=== PATIENT | male | born 1950 | race Caucasian/White ===

== ENCOUNTER 2019-06-15 20:35 | Emergency (ER) | payer MEDICARE ==
[2019-06-15 21:58] LABS: Basophils # (Auto) 0.1 K/mm3 (0.0-0.1); Basophils % (Auto) 0.4 % (0.0-1.8); Eosinophils # (Auto) 0.4 K/mm3 (0.0-0.4); Eosinophils % (Auto) 2.2 % (0.0-4.3); Hemoglobin 13.6 gm/dl (11.8-15.2); Lymphocytes # (Auto) 2.1 K/mm3 (1.2-5.4); Lymphocytes % (Auto) 11.4 % (13.4-35.0); Monocytes # (Auto) 1.6 K/mm3 (0.0-0.8); Monocytes % (Auto) 8.5 % (0.0-7.3)
[2019-06-15 22:17] LABS: Calcium 9.7 mg/dL (8.4-10.2)
[2019-06-15 22:27] LABS: Hematocrit 39.2 % (35.5-45.6); Mean Corpuscular HGB Conc 34 % (32-34); Mean Corpuscular Volume 74 fl (84-94); Platelet Count 404 K/mm3 (140-440); Red Blood Count 5.32 M/mm3 (3.65-5.03); Red Cell Distribution Width 13.8 % (13.2-15.2)
[2019-06-15] MEDS ORDERED: POTASSIUM CHLORIDE ER 20 MEQ TAB PO ONE (23:59)
--- NOTE | 2019-06-16 00:02 | Emergency Department Report ---
ED Male HPI - General Chief complaint: Abdominal Pain Stated complaint: CANT URINATE Time Seen by Provider: 06/15/19 21:15 Source: patient Mode of arrival: Ambulatory Limitations: Language Barrier (Translation line used, patient speaks [place]) - History of Present Illness Initial comments: 69-year-old male with a history of [id number] diabetes and no surgical history presents to the hospital with complaints of inability to urinate since 11am. He presents tachycardic and feeling a suprapubic pain. Patient states he has had 1 previous episode of urinary retention treated with a Nielson. Is not currently seen by urologist - Related Data Previous Rx's Medication Instructions Recorded Last Taken Type Tamsulosin [Flomax] 0.4 mg PO QDAY #14 cap 06/16/19 Unknown Rx cephALEXin [Keflex] 500 mg PO Q6HR #40 capsule 06/16/19 Unknown Rx Allergies Allergy/AdvReac Type Severity Reaction Status Date / Time No Known Allergies Allergy Unverified 06/16/19 00:49 ED Review of Systems ROS: Stated complaint: CANT URINATE Other details as noted in HPI Comment: All other systems reviewed and negative ED Past Medical Hx - Past Medical History Previous Medical History?: No - Surgical History Past Surgical History?: No - Social History Smoking Status: Unknown if ever smoked Substance Use Type: None - Medications Home Medications: Home Medications Medication Instructions Recorded Confirmed Last Taken Type Tamsulosin [Flomax] 0.4 mg PO QDAY #14 cap 06/16/19 Unknown Rx cephALEXin [Keflex] 500 mg PO Q6HR #40 capsule 06/16/19 Unknown Rx ED Physical Exam - General Limitations: Language Barrier - Other Other exam information: General: No acute distress Head: Atraumatic Eyes: normal appearance ENT: Moist mucous membranes Neck: Normal appearance, no midline tenderness Chest: Clear to auscultation bilaterally CV: Tachycardic regular rhythm Abdomen: Soft, normal bowel sounds, suprapubic tenderness, no rebound or guarding Back: Normal inspection Extremity: Normal inspection, full range of motion Neuro: Alert O x 3, no facial asymmetry, speech clear, no gross motor sensory deficit Psych: Appropriate behavior Skin: No rash ED Course Vital Signs 06/15/19 06/16/19 06/16/19 20:40 00:07 00:51 Temperature 99.1 F 97.7 F Pulse Rate 130 H 84 Respiratory 20 17 18 Rate Blood Pressure 140/74 Blood Pressure 131/56 [Left] O2 Sat by Pulse 98 99 98 Oximetry 06/16/19 01:18 Temperature 98.2 F Pulse Rate 90 Respiratory 18 Rate Blood Pressure Blood Pressure 124/63 [Left] O2 Sat by Pulse 96 Oximetry - Reevaluation(s) Reevaluation #1: 06/16/19 00:01 Nielson placed by RN. 500 mL urine output with improvement in pain ED Medical Decision Making - Lab Data Result diagrams: 06/15/19 21:44 06/15/19 21:44 Lab Results 06/15/19 06/15/19 06/16/19 Range/Units 21:44 21:44 00:10 WBC 18.2 H (4.5-11.0) K/mm3 RBC 5.32 H (3.65-5.03) M/mm3 Hgb 13.6 (11.8-15.2) gm/dl Hct 39.2 (35.5-45.6) % MCV 74 L (84-94) fl MCH 25 L (28-32) pg MCHC 34 (32-34) % RDW 13.8 (13.2-15.2) % Plt Count 404 (140-440) K/mm3 Lymph % (Auto) 11.4 L (13.4-35.0) % [place] % (Auto) 8.5 H (0.0-7.3) % Eos % (Auto) 2.2 (0.0-4.3) % Baso % (Auto) 0.4 (0.0-1.8) % Lymph # 2.1 (1.2-5.4) K/mm3 [place] # 1.6 H (0.0-0.8) K/mm3 Eos # 0.4 (0.0-0.4) K/mm3 Baso # 0.1 (0.0-0.1) K/mm3 Seg Neutrophils % 77.5 H (40.0-70.0) % Seg Neutrophils # 14.1 H (1.8-7.7) K/mm3 Sodium 134 L (137-145) mmol/L Potassium 3.3 L (3.6-5.0) mmol/L Chloride 94.5 L (98-107) mmol/L Carbon Dioxide 20 L (22-30) mmol/L Anion Gap 23 mmol/L BUN 16 (9-20) mg/dL Creatinine 1.3 (0.8-1.5) mg/dL Estimated GFR 55 ml/min BUN/Creatinine Ratio 12 % Glucose 133 H (75-100) mg/dL Calcium 9.7 (8.4-10.2) mg/dL Urine Color Yellow (Yellow) Urine Turbidity Slightly-cloudy (Clear) Urine pH 7.0 (5.0-7.0) Ur Specific [place] 1.015 (1.003-1.030) Urine Protein >500 (Negative) mg/dL Urine Glucose (UA) 150 (Negative) mg/dL Urine Ketones Neg (Negative) mg/dL Urine Blood Mod (Negative) Urine Nitrite Neg (Negative) Urine Bilirubin Neg (Negative) Urine Urobilinogen < 2.0 (<2.0) mg/dL Ur Leukocyte Esterase Tr (Negative) Urine WBC (Auto) 33.0 H (0.0-6.0) /HPF Urine RBC (Auto) > 182.0 (0.0-6.0) /HPF Urine Sperm Few (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 500 mL of urine output. Patient has a UTI. Received IV Rocephin x1. Will be discharged with antibiotics, leg bag, and urology follow-up. Translation line used to discuss patient's ED findings and outpatient follow-up plan - Differential Diagnosis Urine retention, UTI Critical Care Time: No Critical care attestation.: If time is entered above; I have spent that time in minutes in the direct care of this critically ill patient, excluding procedure time. ED Disposition Clinical Impression: Urinary retention, Diabetes, UTI (urinary tract infection) Disposition: - TO HOME OR SELFCARE Is pt being admited?: No Does the pt Need Aspirin: No Condition: Stable Instructions: Urinary Retention in Men (ED), Urinary Tract Infection in Men (ED), Diabetes Mellitus Type 2 in Adults (ED), Urinary Leg Bag (GEN) Additional Instructions: Take the medication as prescribed. Follow-up with your doctor or doctor/clinic provided. It is important that you follow-up with your urologist to have your catheter removed and to investigate why you are obstructed. Return if symptoms worsen as indicated by your discharge instructions. Prescriptions: Tamsulosin [Flomax] 0.4 mg PO QDAY #14 cap cephALEXin [Keflex] 500 mg PO Q6HR #40 capsule Referrals: PRIMARY CARE, [Primary Care Provider] - 3-5 Days AZAEL BATES MD [Staff Physician] - 3-5 Days Time of Disposition: 01:10
[2019-06-16 00:23] LABS: Bilirubin,Urine NEG (Negative); Blood,Urine MOD (Negative); Color,Urine Yellow (Yellow); Sperm,Urine FEW /HPF (NP); Urobilinogen,Urine < 2.0 mg/dL (<2.0)
[2019-06-16 00:25] LABS: Protein,Urine >500 mg/dL (Negative); RBC,Urine > 182.0 /HPF (0.0-6.0)
[2019-06-16] MEDS ORDERED: cefTRIAXone/NS 1 GM/50 ML 1 GM/50 ML BAG IV ONE (00:49)
[2019-06-16 01:19] VITALS: BP 124/63
== END 2019-06-16 03:01 | disposition home or self-care (01) ==
LOC: ED 20:35
DX: R33.9 Retention of urine, unspecified (principal); E11.9 Type 2 diabetes mellitus without complications; N39.0 Urinary tract infection, site not specified; Z79.899 Other long term (current) drug therapy
CPT/HCPCS: 36415; 51702; 80048; 81001; 85025; 87086; 96365; 99283; J0696; 82962

== ENCOUNTER 2019-06-16 21:43 | Emergency (ER) | payer MEDICARE ==
--- NOTE | 2019-06-16 22:47 | Emergency Department Report ---
ED Male HPI - General Chief complaint: Urogenital-Male Stated complaint: URINARY RETENTION Time Seen by Provider: 06/16/19 22:32 Source: patient Mode of arrival: Ambulatory Limitations: Language Barrier - History of Present Illness Initial comments: Translation line used 69-year-old [place] speaking male with a past medical history [id number] diabetes presents to the hospital with complaints of urinary retention since removing his Solorio catheter placed during his ER visit last night. Patient was seen by me last night for urinary retention plus UTI. Patient was discharged with Solorio, Solorio leg bag, antibiotics, and Flomax. Patient took out the Solorio catheter himself because it was hurting. He has not been able to urinate since removing the Solorio catheter. Feed Mixer used and patient did not fill his medications. He apparently does not know where he is able to take the medications overall pharmacy is. He also apparently did not understand that he is supposed to follow-up with urology. Pt's Daughter's Number is [phone] - Related Data Previous Rx's Medication Instructions Recorded Last Taken Type Tamsulosin [Flomax] 0.4 mg PO QDAY #14 cap 06/16/19 Unknown Rx cephALEXin [Keflex] 500 mg PO Q6HR #40 capsule 06/16/19 Unknown Rx Allergies Allergy/AdvReac Type Severity Reaction Status Date / Time No Known Allergies Allergy Unverified 06/16/19 21:47 ED Review of Systems ROS: Stated complaint: URINARY RETENTION Other details as noted in HPI Comment: All other systems reviewed and negative ED Past Medical Hx - Past Medical History Previous Medical History?: No - Surgical History Past Surgical History?: No - Social History Smoking Status: Never Smoker Substance Use Type: None - Medications Home Medications: Home Medications Medication Instructions Recorded Confirmed Last Taken Type Tamsulosin [Flomax] 0.4 mg PO QDAY #14 cap 06/16/19 Unknown Rx cephALEXin [Keflex] 500 mg PO Q6HR #40 capsule 06/16/19 Unknown Rx ED Physical Exam - General Limitations: No Limitations - Other Other exam information: General: Mild distress secondary to urine retention Head: Atraumatic Eyes: normal appearance ENT: Moist mucous membranes Neck: Normal appearance, no midline tenderness Chest: Clear to auscultation CV: Tachycardic regular Abdomen: Soft, normal bowel sounds, suprapubic tenderness Back: Normal inspection Extremity: Normal inspection, full range of motion Neuro: Alert O x 3, no facial asymmetry, speech clear, no gross motor sensory deficit Psych: Appropriate behavior Skin: No rash ED Course Vital Signs 06/16/19 06/17/19 21:46 00:28 Temperature 98.3 F 98.0 F Pulse Rate 120 H 90 Respiratory 20 18 Rate Blood Pressure 181/86 Blood Pressure 151/68 [Right] O2 Sat by Pulse 96 98 Oximetry ED Medical Decision Making - Medical Decision Making Patient presents with recurrent urinary retention after he took out with a Solorio catheter himself. Prior to patient's discharge last night I used the language line and gave patient strict instructions to not remove Solorio and to follow-up with urology. Pt now have hematuria likely due to urethra trauma from removing the solorio with balloon intact. No clots or cath obstruction. 1 dose of IV rocephin provided. Pt is afebrile and has mild hyperglycemia. Vitals improved after cath placement. I used a sailing instructor for an extended period of time to reexplain over and over again that patient does not take out the catheter himself (he would still suggest he was to remove the solorio however I think he finally understands), needs to follow-up with a urologist, needs to fill the medications at a pharmacy and [facility] use [facility] across the [address], and he needs to take the medication starting in the morning. Unfortunately, patient does not have a an [place]-speaking friend or family member here in [place]. He has a son and daughter that live out of state. He was able to provide his daughter's number. I spoke to pt's daughter at [phone] at 11:30pm. She lives in [facility] and will come to [place] tomorrow to assist her father with follow up, review discharge instructions, and getting meds. I explained the importance of keeping catheter in and only coming to the ED if is obstructed and not draining or if worsening infection/fever. Also stressed importance of compliance with antibiotics due to risk of sepsis and follow-up with the urologist. She voices understanding and will assist her father with appropriate outpt care and follow up. I will rewrite for abx and flomax so pt may take to pharmacy tonight - Differential Diagnosis Urine retention, BPH, UTI Critical Care Time: No Critical care attestation.: If time is entered above; I have spent that time in minutes in the direct care of this critically ill patient, excluding procedure time. ED Disposition Clinical Impression: Diabetes, Urinary retention, UTI (urinary tract infection) Disposition: TO HOME OR SELFCARE Is pt being admited?: No Condition: Stable Instructions: Cephalexin (By mouth), Tamsulosin (By mouth), Urinary Tract Infection in Men (ED), Solorio Catheter Placement and Care (ED), Diabetes Mellitus Type 2 in Adults (ED), Urinary Leg Bag (GEN) Additional Instructions: Take the medication as prescribed. Follow-up with your doctor or doctor/clinic provided. Return if symptoms worsen as indicated by your discharge instructions. Is is very important you follow-up with a urologist. Dr. Coelho is a urologist provided on your discharge s summary. Return to the ER if your Solorio catheter is no longer draining and you have increased pain in your lower stomach, start to have fevers, weakness, nausea, or vomiting. Please refer to your discharge instructions provided. Prescriptions: Tamsulosin [Flomax] 0.4 mg PO QDAY #14 cap cephALEXin [Keflex] 500 mg PO Q6HR #40 capsule Referrals: AZAEL COELHO MD [Staff Physician] - 3-5 Days (Urology) Time of Disposition: 00:45
[2019-06-16] MEDS ORDERED: cefTRIAXone/NS 1 GM/50 ML 1 GM/50 ML BAG IV ONE (23:14)
[2019-06-17 00:29] VITALS: BP 151/68
== END 2019-06-17 01:13 | disposition home or self-care (01) ==
LOC: ED 21:43
DX: N39.0 Urinary tract infection, site not specified (principal); E11.9 Type 2 diabetes mellitus without complications; R33.8 Other retention of urine
CPT/HCPCS: 51702; 82962; 96365; 99282; J0696

== ENCOUNTER 2019-06-21 06:58 | Emergency (ER) | payer MEDICARE ==
[2019-06-21 07:54] VITALS: BP 126/74
--- NOTE | 2019-06-21 09:28 | Emergency Department Report ---
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 Patient states he removed his catheter 2 days ago. Per the patient's daughter he has an appointment with urology and the reason he took his Nielson out the last time is because he thought that was the correct way to drain the urine from the back. Patient has no other complaints. -: Sudden Location: genitals Radiation: non-radiation Severity scale (0 -10): 3 Quality: aching Consistency: constant Improves with: none Worsens with: none Associated Symptoms: denies other symptoms Treatments Prior to Arrival: none - Related Data Previous Rx's Medication Instructions Recorded Last Taken Type Tamsulosin [Flomax] 0.4 mg PO QDAY #14 cap 06/16/19 Unknown Rx cephALEXin [Keflex] 500 mg PO Q6HR #40 capsule 06/16/19 Unknown Rx Allergies Allergy/AdvReac Type Severity Reaction Status Date / Time No Known Allergies Allergy Unverified 06/16/19 21:47 ED Review of Systems ROS: Stated complaint: URINARY RETENTION Other details as noted in HPI Comment: All other systems reviewed and negative Constitutional: denies: chills, fever Eyes: denies: eye pain, eye discharge, vision change ENT: denies: ear pain, throat pain Respiratory: denies: cough, shortness of breath, wheezing Cardiovascular: denies: chest pain, palpitations Endocrine: no symptoms reported Gastrointestinal: denies: abdominal pain, nausea, diarrhea Genitourinary: denies: urgency, dysuria Musculoskeletal: denies: back pain, joint swelling, arthralgia Skin: denies: rash, lesions Neurological: denies: headache, weakness, paresthesias Psychiatric: denies: anxiety, depression Hematological/Lymphatic: denies: easy bleeding, easy bruising ED Past Medical Hx - Past Medical History Additional medical history: urinary retention - Surgical History Past Surgical History?: No - Social History Smoking Status: Never Smoker Substance Use Type: None - Medications Home Medications: Home Medications Medication Instructions Recorded Confirmed Last Taken Type Tamsulosin [Flomax] 0.4 mg PO QDAY #14 cap 06/16/19 Unknown Rx cephALEXin [Keflex] 500 mg PO Q6HR #40 capsule 06/16/19 Unknown Rx ED Physical Exam - General Limitations: No Limitations General appearance: alert, in no apparent distress - Head Head exam: Present: atraumatic, normocephalic - Eye Eye exam: Present: normal appearance, PERRL, EOMI - ENT ENT exam: Present: mucous membranes moist - Neck Neck exam: Present: normal inspection - Respiratory Respiratory exam: Present: normal lung sounds bilaterally. Absent: respiratory distress - Cardiovascular Cardiovascular Exam: Present: regular rate, normal rhythm. Absent: systolic murmur, diastolic murmur, rubs, gallop - GI/Abdominal GI/Abdominal exam: Present: soft, normal bowel sounds, other (Distended bladder on exam). Absent: distended, tenderness - Rectal Rectal exam: Present: deferred - Extremities Exam Extremities exam: Present: normal inspection - Back Exam Back exam: Present: normal inspection - Neurological Exam Neurological exam: Present: alert, oriented X3 - Psychiatric Psychiatric exam: Present: normal affect, normal mood - Skin Skin exam: Present: warm, dry, intact, normal color. Absent: rash ED Course Vital Signs 06/21/19 07:45 Temperature 97.5 F L Pulse Rate 122 H Respiratory 20 Rate Blood Pressure 126/74 O2 Sat by Pulse 96 Oximetry ED Medical Decision Making - Medical Decision Making Nielson catheter replaced Critical care attestation.: If time is entered above; I have spent that time in minutes in the direct care of this critically ill patient, excluding procedure time. ED Disposition Clinical Impression: Urinary retention Disposition: DC-01 TO HOME OR SELFCARE Is pt being admited?: No Does the pt Need Aspirin: No Condition: Stable Instructions: Urinary Retention in Men (ED), Urinary Leg Bag (GEN), Nielson Catheter Placement and Care (ED) Additional Instructions: Please follow-up with your urology appointment Please continue to take your antibiotic and Flomax Referrals: JAMAR MENDOZA MD [Primary Care Provider] - 3-5 Days AZAEL BATES MD [Staff Physician] - 3-5 Days Time of Disposition: 09:27
== END 2019-06-21 09:44 | disposition home or self-care (01) ==
LOC: ED 06:58
DX: R33.9 Retention of urine, unspecified (principal)
CPT/HCPCS: 51702; 99281

== ENCOUNTER 2019-12-15 15:48 | Inpatient (IN) | payer MEDICARE ==
[2019-12-15 18:20] LABS: Basophils % (Auto) 0.4 % (0.0-1.8); Eosinophils % (Auto) 0.3 % (0.0-4.3); Hematocrit 34.6 % (35.5-45.6); Hemoglobin 11.2 gm/dl (11.8-15.2); Lymphocytes # (Auto) 1.4 K/mm3 (1.2-5.4); Mean Corpuscular HGB Conc 32 % (32-34); Mean Corpuscular Volume 76 fl (84-94); Monocytes # (Auto) 1.3 K/mm3 (0.0-0.8); Monocytes % (Auto) 10.5 % (0.0-7.3); Platelet Count 448 K/mm3 (140-440); Red Blood Count 4.54 M/mm3 (3.65-5.03); Red Cell Distribution Width 17.6 % (13.2-15.2)
[2019-12-15 18:36] LABS: Albumin 4.1 g/dL (3.9-5); Calcium 9.6 mg/dL (8.4-10.2)
--- NOTE | 2019-12-15 20:56 | XRay Report ---
CHEST 2 VIEWS INDICATION / CLINICAL INFORMATION: altered mental status. COMPARISON: None available. FINDINGS: SUPPORT DEVICES: None. HEART / MEDIASTINUM: No significant abnormality. LUNGS / PLEURA: No significant pulmonary or pleural abnormality. No pneumothorax. ADDITIONAL FINDINGS: No significant additional findings. IMPRESSION: 1. No acute findings. Signer Name: Chidi Muse MD Signed: 12/15/2019 8:52 PM Workstation Name: [id number]
[2019-12-15] MEDS ORDERED: SODIUM CHLORIDE 0.9% 1000 ML IV SOLN IV ONE (21:04)
[2019-12-15] MEDS: CEFEPIME/NS 2 GM/100 ML 2 GM/100 ML BAG IV SCH (21:29)
[2019-12-15 23:15] LABS: Bacteria,Urine 4+ /HPF (Negative); Bilirubin,Urine NEG (Negative); Blood,Urine MOD (Negative); Color,Urine Yellow (Yellow); Urobilinogen,Urine < 2.0 mg/dL (<2.0)
[2019-12-15 23:21] LABS: WBC,Urine > 182.0 /HPF (0.0-6.0)
[2019-12-16] MEDS ORDERED: MAGNESIUM HYDROXIDE (MOM) ORAL LIQD UDC PO PRN (00:22)
[2019-12-16] MEDS ORDERED: ONDANSETRON 4 MG/2 ML INJ IV PRN (00:22)
[2019-12-16] MEDS ORDERED: ACETAMINOPHEN 325 MG TAB PO PRN (00:22)
[2019-12-16] MEDS ORDERED: DEXTROSE 50% IN WATER (25GM) 50 ML SYRINGE IV PRN (00:22)
[2019-12-16] MEDS: CEFEPIME/NS 2 GM/100 ML 2 GM/100 ML BAG IV SCH ×2 (00:40→10:33)
[2019-12-16] MEDS ORDERED: LORazepam 2 MG/ML VIAL IV ONE ×3 (01:00→23:46)
[2019-12-16] MEDS ORDERED: HALOPERIDOL LACTATE 5 MG/1 ML INJ IM ONE ×2 (01:00→02:34)
--- NOTE | 2019-12-16 01:39 | Emergency Department Report ---
ED Male HPI - General Chief complaint: Urogenital-Female Stated complaint: DEMENTIA/PULLED OUT CATHERATER Time Seen by Provider: 12/15/19 21:03 Source: patient, family Mode of arrival: Ambulatory Limitations: Altered Mental Status, Physical Limitation - History of Present Illness Initial comments: This is a 69-year-old male with history of dementia, BPH, diabetes mellitus who presents to the ED with confusion and dislodged indwelling Nielson catheter. Family member stated that patient became confused and pulled out his Nielson catheter. Due to dementia and language barrier, history is limited. MD Complaint: other (Dislodged Nielson catheter) -: This evening Location: penis Consistency: constant Improves with: none Worsens with: none denies other symptoms - Related Data Previous Rx's Medication Instructions Recorded Last Taken Type Tamsulosin [Flomax] 0.4 mg PO QDAY #14 cap 06/16/19 Unknown Rx cephALEXin [Keflex] 500 mg PO Q6HR #40 capsule 06/16/19 Unknown Rx levoFLOXacin [Levaquin TAB] 500 mg PO QDAY #5 tablet 10/25/19 Unknown Rx Allergies Allergy/AdvReac Type Severity Reaction Status Date / Time No Known Allergies Allergy Verified 10/26/19 14:23 ED Review of Systems ROS: Stated complaint: DEMENTIA/PULLED OUT CATHERATER Other details as noted in HPI Comment: Unobtainable due to pts medical conditions (Dementia, language bar rier) ED Past Medical Hx - Past Medical History Previous Medical History?: Yes Hx Diabetes: Yes Additional medical history: urinary retention - Surgical History Past Surgical History?: No - Social History Smoking Status: Never Smoker Substance Use Type: Prescribed - Medications Home Medications: Home Medications Medication Instructions Recorded Confirmed Last Taken Type Tamsulosin [Flomax] 0.4 mg PO QDAY #14 cap 06/16/19 10/24/19 Unknown Rx cephALEXin [Keflex] 500 mg PO Q6HR #40 capsule 06/16/19 10/24/19 Unknown Rx levoFLOXacin [Levaquin TAB] 500 mg PO QDAY #5 tablet 10/25/19 Unknown Rx ED Physical Exam - General Limitations: Altered Mental Status, Physical Limitation General appearance: alert, in no apparent distress, other (Repeatedly attempts to urinate into urinal) - Head Head exam: Present: atraumatic, normocephalic - Eye Eye exam: Present: normal appearance - ENT ENT exam: Present: mucous membranes moist - Neck Neck exam: Present: normal inspection, full ROM - Respiratory Respiratory exam: Present: normal lung sounds bilaterally. Absent: respiratory distress, wheezes, rales, rhonchi - Cardiovascular Cardiovascular Exam: Present: normal rhythm, tachycardia, normal heart sounds. Absent: systolic murmur, diastolic murmur, rubs, gallop - GI/Abdominal GI/Abdominal exam: Present: soft, normal bowel sounds. Absent: distended, tenderness, guarding, rebound - Rectal Rectal exam: Present: deferred - Extremities Exam Extremities exam: Present: normal inspection - Back Exam Back exam: Present: normal inspection - Neurological Exam Neurological exam: Present: alert - Psychiatric Psychiatric exam: Present: normal affect, normal mood - Skin Skin exam: Present: warm, dry, intact, normal color. Absent: rash ED Course Vital Signs 12/15/19 16:02 Temperature 97.6 F Pulse Rate 122 H Respiratory 20 Rate Blood Pressure 119/48 O2 Sat by Pulse 100 Oximetry - Catheter Insertion (Urinary) Indications: replaced: fell out/removed/no longer functioning, to alleviate urinary retention Prophylactic Antibiotics Given: No Bladder Scan/US before Catherization: Yes Estimated Amount of Urine (mls): 1,000 Preparation: Providone-Iodine Type of Catheter Inserted: Nielson Catheter Balloon Size (mls): 10 Results: successfully catherized-immediate flow, retried with smaller/different catheter Patient Tolerated Procedure: well Complications: none Additional Comments: Under sterile conditions I initially attempted to insert a 16 Albanian coud catheter without success. I then attempted to insert 24 Albanian coud catheter. On third attempt, I was able to pass a 16 Albanian coud catheter with immediate expression of clear urine. ED Medical Decision Making - Lab Data Result diagrams: 12/15/19 17:32 12/15/19 17:32 Laboratory Results - last 24 hr 12/15/19 12/15/19 12/15/19 17:32 17:32 20:04 WBC 12.0 H RBC 4.54 Hgb 11.2 L Hct 34.6 L MCV 76 L MCH 25 L MCHC 32 RDW 17.6 H Plt Count 448 H Lymph % (Auto) 12.0 L [place] % (Auto) 10.5 H Eos % (Auto) 0.3 Baso % (Auto) 0.4 Lymph # (Auto) 1.4 [place] # (Auto) 1.3 H Eos # (Auto) 0.0 Baso # (Auto) 0.0 Seg Neutrophils % 76.8 H Seg Neutrophils # 9.2 H Sodium 133 L Potassium 4.9 Chloride 96.0 L Carbon Dioxide 20 L Anion Gap 22 BUN 38 H Creatinine 1.9 H Estimated GFR 35 BUN/Creatinine Ratio 20 Glucose 189 H Lactic Acid Calcium 9.6 Total Bilirubin 0.40 AST 21 ALT 13 Alkaline Phosphatase 62 Troponin T 0.012 Total Protein 8.2 Albumin 4.1 Albumin/Globulin Ratio 1.0 Urine Color Urine Turbidity Urine pH Ur Specific Wesley Urine Protein Urine Glucose (UA) Urine Ketones Urine Blood Urine Nitrite Urine Bilirubin Urine Urobilinogen Ur Leukocyte Esterase Urine WBC (Auto) Urine RBC (Auto) Urine Bacteria (Auto) Urine WBC Clumps 12/15/19 12/15/19 21:23 22:37 WBC RBC Hgb Hct MCV MCH MCHC RDW Plt Count Lymph % (Auto) [place] % (Auto) Eos % (Auto) Baso % (Auto) Lymph # (Auto) [place] # (Auto) Eos # (Auto) Baso # (Auto) Seg Neutrophils % Seg Neutrophils # Sodium Potassium Chloride Carbon Dioxide Anion Gap BUN Creatinine Estimated GFR BUN/Creatinine Ratio Glucose Lactic Acid 2.50 H* Calcium Total Bilirubin AST ALT Alkaline Phosphatase Troponin T Total Protein Albumin Albumin/Globulin Ratio Urine Color Yellow Urine Turbidity Turbid Urine pH 5.0 Ur Specific Wesley 1.011 Urine Protein 100 mg/dl Urine Glucose (UA) Neg Urine Ketones Neg Urine Blood Mod Urine Nitrite Neg Urine Bilirubin Neg Urine Urobilinogen < 2.0 Ur Leukocyte Esterase Lg Urine WBC (Auto) > 182.0 H Urine RBC (Auto) 48.0 Urine Bacteria (Auto) 4+ Urine WBC Clumps 3+ - EKG Data -: EKG Interpreted by Mi EKG shows normal: sinus rhythm, intervals, QRS complexes, ST-T waves Rate: tachycardia - EKG Data Interpretation: nonspecific ST-T wave ja - Radiology Data Radiology results: report reviewed Chest radiograph: No acute findings - Medical Decision Making This is a 69-year-old male with history of diabetes mellitus, BPH, urinary retention, dementia who presents with an dislodged indwelling Nielson catheter. With tachycardia and hypotension at triage I was concerned for sepsis. Patient was able to ride urine sample. It appeared that he is having difficulty emptying his bladder. Urinalysis revealed UTI as source of sepsis. Sepsis protocol initiated in the emergency department. 30 mils per kilogram of normal saline provided as well as broad-spectrum antibiotics for complicated UTI. Patient required chemical and physical restraint in order for me to insert Nielson catheter. Nursing team members were unable to insert Nielson catheter. Bladder scan revealed greater than 1000 mL of urine in volume prior to Nielson catheter insertion. With resuscitation, blood pressure improved. Vital Signs - 24 hr 12/15/19 16:02 Temperature 97.6 F Pulse Rate 122 H Respiratory 20 Rate Blood Pressure 119/48 O2 Sat by Pulse 100 Oximetry Critical Care Time: Yes Critical care time in (mins) excluding proc time.: 40 Critical care attestation.: If time is entered above; I have spent that time in minutes in the direct care of this critically ill patient, excluding procedure time. 40 minutes of critical care time excluding procedures were used in the care of the patient. I came immediately to the bedside upon patient's arrival. I discussed treatment plan with the nursing team members. I reviewed electronic record. Patient required multiple interventions and reassessments. I was concerned for septic shock with tachycardia and decreased diastolic blood pressure and widened pulse pressure. ED Disposition Clinical Impression: Urinary retention due to benign prostatic hyperplasia, Urinary tract infection, Sepsis, Acute on chronic kidney failure Disposition: OP ADMIT IP TO THIS HOSP Is pt being admited?: Yes Does the pt Need Aspirin: No Condition: Fair
[2019-12-16] MEDS ORDERED: METOPROLOL TARTRATE 5 MG/5 ML INJ IV ONE (03:33)
[2019-12-16] MEDS ORDERED: ADENOSINE 6 MG/2 ML INJ IV ONE ×2 (03:42→03:47)
[2019-12-16] MEDS ORDERED: ADENOSINE 6 MG/2 ML INJ ONE ×2 (03:42→03:47)
[2019-12-16] MEDS ORDERED: ACETAMINOPHEN 650 MG RECT SUPP PR ONE (03:55)
--- NOTE | 2019-12-16 03:56 | Emergency Department Report ---
Blank Doc - Documentation Documentation: Patient is drowsy after receiving Haldol and Ativan and is in wrist restraints due to alteration mental status/dementia and trying to pull out solorio Nurse called me to bedside given that patient is admitted and boarding in the ED with a tachycardic rate of 170s on the monitor. I also informed them to contact Dr Gutiérrez since pt is admitted to the hospitalist service. Rhythm is regular. Systolic BP in the 130's to 120's. Tacypneic at 40 with room air stat of 98%. I requested a stat EKG, and stat rectal temp. EKG showed svt rate 173 without ischemic findings. Patient is temperature 103. Solorio is actively draining yellow mildly purulent urine. I informed nurse to provide [place] tylenol. Dr Gutiérrez told RN to provided adenosine 6mg I remained at the bedside to assist in the care of the patient Y connector placed and pt received adenosine 6 mg with min with only several seconds of a rhythm slow down Patient then provided adenosine 12 mg and rhythm strip printed during administration of adenosine (strips placed on the chart) Rhythm strips reviewed with on-call home health speech therapist who Dr. Black Elizabeth suspects underlying A. fib secondary to sepsis. Since no relief with adenosine Cardizem drip recommended peer initial bolus of cardizem 20 mg ordered. Additional IV fluids ordered. cardiology consult ordered on the chart admission status upgraded to ccu. critical care consult ordered Dr Gutiérrez hospitalist updated. critical care time 35 min.
[2019-12-16] MEDS ORDERED: dilTIAZem 25 MG/5 ML INJ IV ONE (03:57)
[2019-12-16] MEDS ORDERED: SODIUM CHLORIDE 0.9% 1000 ML 1,000 ML IV ONE (04:03)
[2019-12-16] MEDS: SODIUM CHLORIDE 0.9% 1000 ML 1,000 ML IV SCH ×2 (04:14→15:51)
[2019-12-16] MEDS ORDERED: niCARdipine DRIP 0 MG/0 ML BAG ONE (04:33)
--- NOTE | 2019-12-16 04:52 | History and Physical Report ---
History of Present Illness Date of examination: 12/16/19 Date of admission: 12/15/19 23:44 Chief complaint: Confusion Malfunctioning Nielson catheter History of present illness: 69-year-old male with known history of dementia, BPH and diabetes mellitus seen in the emergency room today for evaluation of confusion and dislodgment of an indwelling Nielson catheter. Patient appears a little confused in the emergency room and cannot give any good history. Family members were said to have indicated that patient was just confused and said to pull out his Nielson catheter. Work-up in the emergency room reveals a urinary tract infection with accompanying sepsis. He was started on IV fluid and empiric IV antibiotics. However during the course of his stay in the emergency room patient was said to have gone into SVT and also what appeared to be atrial fibrillation. He was initially given IV adenosine without any significant improvement in his rate. His case was discussed with the staff development manager on-call by the ER physician and patient subsequently placed on Cardizem drip. He became hypotensive and he continued to have aggressive IV hydration. Patient is being admitted into the intensive care unit for close monitoring. Past History Past Medical History: diabetes, hypertension, other (Dementia,BPH) Past Surgical History: No surgical history Social history: no significant social history Family history: no significant family history Medications and Allergies Allergies Allergy/AdvReac Type Severity Reaction Status Date / Time No Known Allergies Allergy Verified 10/26/19 14:23 Home Medications Medication Instructions Recorded Confirmed Last Taken Type Tamsulosin [Flomax] 0.4 mg PO QDAY #14 cap 06/16/19 10/24/19 Unknown Rx cephALEXin [Keflex] 500 mg PO Q6HR #40 capsule 06/16/19 10/24/19 Unknown Rx levoFLOXacin [Levaquin TAB] 500 mg PO QDAY #5 tablet 10/25/19 Unknown Rx Active Meds: Active Medications Acetaminophen (Tylenol) 650 mg PO Q4H PRN PRN Reason: Pain MILD(1-3)/Fever >100.5/HERNANDEZ Dextrose (D50w (25gm) Syringe) 50 ml IV Q30MIN PRN; Protocol PRN Reason: Hypoglycemia Heparin Sodium (Porcine) (Heparin) 5,000 unit SUB-Q Q8HR CORINE Cefepime HCl (Cefepime/Ns 2 Gm/100 Ml) 2 gm in 100 mls @ 200 mls/hr IV Q12HR S CH; Protocol Last Admin: 12/16/19 00:40 Dose: Not Given Documented by: Sodium Chloride (Nacl 0.9% 1000 Ml) 1,000 mls @ 125 mls/hr IV DIRECT CORINE Last Admin: 12/16/19 04:14 Dose: 125 mls/hr Documented by: Diltiazem HCl (Cardizem/D5w 100mg/100ml) 100 mg in 100 mls @ 5 mls/hr IV TITR CORINE; Protocol Sodium Chloride (Nacl 0.9% 1000 Ml) 1,000 mls @ 500 mls/hr IV BOLUS ONE Stop: 12/16/19 06:02 Last Admin: 12/16/19 04:15 Dose: 500 mls/hr Documented by: Insulin Human Lispro (Humalog) 0 unit SUB-Q ACHS CORINE; Protocol Magnesium Hydroxide (Milk Of Magnesia) 30 ml PO Q4H PRN PRN Reason: Constipation Ondansetron HCl (Zofran) 4 mg IV Q8H PRN PRN Reason: Nausea And Vomiting Sodium Chloride (Sodium Chloride Flush Syringe 10 Ml) 10 ml IV BID CORINE Sodium Chloride (Sodium Chloride Flush Syringe 10 Ml) 10 ml IV PRN PRN PRN Reason: LINE FLUSH Review of Systems Constitutional: fever, no chills Ears, nose, mouth and throat: no nasal congestion, no sore throat Cardiovascular: no chest pain, no palpitations Respiratory: no cough, no shortness of breath Gastrointestinal: no abdominal pain, no nausea, no vomiting, no diarrhea Genitourinary Male: no dysuria, no hematuria, no flank pain Musculoskeletal: no neck stiffness, no low back pain Integumentary: no rash, no pruritis Neurological: no headaches, no confusion Psychiatric: no anxiety, no depression Exam - Constitutional Vitals: Temp Pulse Resp BP Pulse Ox 97.6 F 132 H 18 99/37 98 12/15/19 16:02 12/16/19 04:41 12/16/19 04:41 12/16/19 04:41 12/16/19 04:41 General appearance: Present: no acute distress, well-nourished - EENT Eyes: Present: PERRL, EOM intact ENT: hearing intact, clear oral mucosa, dentition normal - Neck Neck: Present: supple, normal ROM - Respiratory Respiratory effort: normal Respiratory: bilateral: CTA - Cardiovascular Rhythm: regular Heart Sounds: Present: S1 & S2. Absent: gallop, systolic murmur, diastolic murmur, rub - Extremities Extremities: no ischemia, pulses intact, pulses symmetrical, No edema, Full ROM Peripheral Pulses: within normal limits - Abdominal General gastrointestinal: Present: soft, non-tender, non-distended, normal bowel sounds. Absent: mass - Integumentary Integumentary: Present: clear, warm, dry - Musculoskeletal Musculoskeletal: strength equal bilaterally - Psychiatric Psychiatric: appropriate mood/affect, intact judgment & insight, memory intact, cooperative - Neurologic Neurologic: CNII-XII intact, no focal deficits, moves all extremities HEART Score - HEART Score Troponin: Troponin T 0.012 ng/mL (0.00-0.029) 12/15/19 20:04 Results - Labs CBC & Chem 7: 12/15/19 17:32 12/15/19 17:32 Labs: Abnormal lab results 12/15/19 12/15/19 12/15/19 Range/Units 17:32 17:32 21:23 WBC 12.0 H (4.5-11.0) K/mm3 Hgb 11.2 L (11.8-15.2) gm/dl Hct 34.6 L (35.5-45.6) % MCV 76 L (84-94) fl MCH 25 L (28-32) pg RDW 17.6 H (13.2-15.2) % Plt Count 448 H (140-440) K/mm3 Lymph % (Auto) 12.0 L (13.4-35.0) % [place] % (Auto) 10.5 H (0.0-7.3) % [place] # (Auto) 1.3 H (0.0-0.8) K/mm3 Seg Neutrophils % 76.8 H (40.0-70.0) % Seg Neutrophils # 9.2 H (1.8-7.7) K/mm3 Sodium 133 L (137-145) mmol/L Chloride 96.0 L (98-107) mmol/L Carbon Dioxide 20 L (22-30) mmol/L BUN 38 H (9-20) mg/dL Creatinine 1.9 H (0.8-1.3) mg/dL Glucose 189 H (75-100) mg/dL Lactic Acid 2.50 H* (0.7-2.0) mmol/L Urine WBC (Auto) (0.0-6.0) /HPF 12/15/19 Range/Units 22:37 WBC (4.5-11.0) K/mm3 Hgb (11.8-15.2) gm/dl Hct (35.5-45.6) % MCV (84-94) fl MCH (28-32) pg RDW (13.2-15.2) % Plt Count (140-440) K/mm3 Lymph % (Auto) (13.4-35.0) % [place] % (Auto) (0.0-7.3) % [place] # (Auto) (0.0-0.8) K/mm3 Seg Neutrophils % (40.0-70.0) % Seg Neutrophils # (1.8-7.7) K/mm3 Sodium (137-145) mmol/L Chloride (98-107) mmol/L Carbon Dioxide (22-30) mmol/L BUN (9-20) mg/dL Creatinine (0.8-1.3) mg/dL Glucose (75-100) mg/dL Lactic Acid (0.7-2.0) mmol/L Urine WBC (Auto) > 182.0 H (0.0-6.0) /HPF Assessment and Plan - Patient Problems (1) Urinary tract infection Current Visit: Yes Status: Acute Plan to address problem: Patient placed on empiric IV antibiotics. We await urine culture result. (2) Urinary retention due to benign prostatic hyperplasia Current Visit: Yes Status: Acute Plan to address problem: Patient has had Nielson catheter replaced. (3) Sepsis Current Visit: Yes Status: Acute Plan to address problem: Patient is continued on empiric IV antibiotics and IV fluid. We will place consult to infectious disease for further evaluation and recommendation. (4) Diabetes Current Visit: No Status: Acute Plan to address problem: We will monitor Accu-Cheks. (5) WENDY (acute kidney injury) Current Visit: Yes Status: Acute Plan to address problem: Patient placed on IV fluid and will continue to monitor BUN and creatinine. (6) Cardiac arrhythmia Current Visit: Yes Status: Acute Plan to address problem: Patient went into SVT and later into A. fib. He is currently on Cardizem drip. We will await evaluation by cardiology. (7) DVT prophylaxis Current Visit: No Status: Acute Plan to address problem: Patient placed on subcutaneous heparin. (8) Full code status Current Visit: Yes Status: Acute
[2019-12-16] MEDS: dilTIAZem/D5W 100 MG/100 ML BAG IV SCH ×2 (05:01→11:45)
[2019-12-16] MEDS ORDERED: SODIUM CHLORIDE 0.9% 500 ML 500 ML ONE (06:09)
[2019-12-16] MEDS ORDERED: SODIUM CHLORIDE 0.9% 500 ML 500 ML IV ONE (06:15)
[2019-12-16] MEDS: HEPARIN 5,000 UNIT/1 ML VIAL SUB-Q SCH ×3 (06:24→23:54)
[2019-12-16] MEDS ORDERED: HEPARIN 5,000 UNIT/1 ML VIAL ONE ×2 (06:24→15:48)
[2019-12-16] MEDS ORDERED: SODIUM CHLORIDE 0.9% 1000 ML 1,000 ML ONE ×3 (06:55→15:47)
[2019-12-16] MEDS ORDERED: VANCOMYCIN PHARMACY TO DOSE IV SCH (08:00)
[2019-12-16] MEDS ORDERED: VANCOMYCIN 1,250 MG in SODIUM CHLORIDE 0.9% 250ML 250 ML IV ONE (08:00)
--- NOTE | 2019-12-16 09:50 | Consultation ---
History of Present Illness - Reason for Consult Consult date: 12/16/19 Hypotension, sepsis Requesting physician: BRIGITTE MORRISON - History of Present Illness 69 y/o male with chronic indwelling solorio admitted with sepsis and hypovolemia and Afib with RVR. In ED patient had SVT in the 170's. Treated with Adenosine 6 and 12 but no third dose. He was then started on Dilt drip and made an ICU hold. CUrrently there are no beds. Slightly hypotensive now based on readings in the chart. Past History Past Medical History: diabetes, hypertension, other (Dementia,BPH) Past Surgical History: No surgical history Social history: no significant social history Family history: no significant family history Medications and Allergies Allergies Allergy/AdvReac Type Severity Reaction Status Date / Time No Known Allergies Allergy Verified 10/26/19 14:23 Home Medications Medication Instructions Recorded Confirmed Last Taken Type Tamsulosin [Flomax] 0.4 mg PO QDAY #14 cap 06/16/19 10/24/19 Unknown Rx cephALEXin [Keflex] 500 mg PO Q6HR #40 capsule 06/16/19 10/24/19 Unknown Rx levoFLOXacin [Levaquin TAB] 500 mg PO QDAY #5 tablet 10/25/19 Unknown Rx Active Meds: Active Medications Acetaminophen (Tylenol) 650 mg PO Q4H PRN PRN Reason: Pain MILD(1-3)/Fever >100.5/HERNANDEZ Dextrose (D50w (25gm) Syringe) 50 ml IV Q30MIN PRN; Protocol PRN Reason: Hypoglycemia Heparin Sodium (Porcine) (Heparin) 5,000 unit SUB-Q Q8HR CORINE Last Admin: 12/16/19 06:24 Dose: 5,000 unit Documented by: Cefepime HCl (Cefepime/Ns 2 Gm/100 Ml) 2 gm in 100 mls @ 200 mls/hr IV Q12HR CORINE; Protocol Last Admin: 12/16/19 00:40 Dose: Not Given Documented by: Sodium Chloride (Nacl 0.9% 1000 Ml) 1,000 mls @ 125 mls/hr IV DIRECT CORINE Last Admin: 12/16/19 04:14 Dose: 125 mls/hr Documented by: Diltiazem HCl (Cardizem/D5w 100mg/100ml) 100 mg in 100 mls @ 5 mls/hr IV TITR CORINE; Protocol Last Admin: 12/16/19 05:01 Dose: 10 mg/hr, 10 mls/hr Documented by: Vancomycin HCl (Vancomycin/Ns 1 Gm/250 Ml) 1 gm in 250 mls @ 167.007 mls/hr IV Q24HR CORINE Insulin Human Lispro (Humalog) 0 unit SUB-Q ACHS CORINE; Protocol Magnesium Hydroxide (Milk Of Magnesia) 30 ml PO Q4H PRN PRN Reason: Constipation Ondansetron HCl (Zofran) 4 mg IV Q8H PRN PRN Reason: Nausea And Vomiting Sodium Chloride (Sodium Chloride Flush Syringe 10 Ml) 10 ml IV BID CORINE Sodium Chloride (Sodium Chloride Flush Syringe 10 Ml) 10 ml IV PRN PRN PRN Reason: LINE FLUSH Exam - Constitutional Vitals: Temp Pulse Resp BP Pulse Ox 101.0 F H 115 H 22 112/61 100 12/16/19 08:00 12/16/19 09:15 12/16/19 09:15 12/16/19 09:15 12/16/19 08:31 Results - Labs CBC & Chem 7: 12/15/19 17:32 12/15/19 17:32 Labs: Abnormal lab results 12/15/19 12/15/19 12/15/19 Range/Units 17:32 17:32 21:23 WBC 12.0 H (4.5-11.0) K/mm3 Hgb 11.2 L (11.8-15.2) gm/dl Hct 34.6 L (35.5-45.6) % MCV 76 L (84-94) fl MCH 25 L (28-32) pg RDW 17.6 H (13.2-15.2) % Plt Count 448 H (140-440) K/mm3 Lymph % (Auto) 12.0 L (13.4-35.0) % [place] % (Auto) 10.5 H (0.0-7.3) % [place] # (Auto) 1.3 H (0.0-0.8) K/mm3 Seg Neutrophils % 76.8 H (40.0-70.0) % Seg Neutrophils # 9.2 H (1.8-7.7) K/mm3 Sodium 133 L (137-145) mmol/L Chloride 96.0 L (98-107) mmol/L Carbon Dioxide 20 L (22-30) mmol/L BUN 38 H (9-20) mg/dL Creatinine 1.9 H (0.8-1.3) mg/dL Glucose 189 H (75-100) mg/dL POC Glucose (70-105) Lactic Acid 2.50 H* (0.7-2.0) mmol/L Urine WBC (Auto) (0.0-6.0) /HPF 12/15/19 12/16/19 Range/Units 22:37 08:22 WBC (4.5-11.0) K/mm3 Hgb (11.8-15.2) gm/dl Hct (35.5-45.6) % MCV (84-94) fl MCH (28-32) pg RDW (13.2-15.2) % Plt Count (140-440) K/mm3 Lymph % (Auto) (13.4-35.0) % [place] % (Auto) (0.0-7.3) % [place] # (Auto) (0.0-0.8) K/mm3 Seg Neutrophils % (40.0-70.0) % Seg Neutrophils # (1.8-7.7) K/mm3 Sodium (137-145) mmol/L Chloride (98-107) mmol/L Carbon Dioxide (22-30) mmol/L BUN (9-20) mg/dL Creatinine (0.8-1.3) mg/dL Glucose (75-100) mg/dL POC Glucose 114 H (70-105) Lactic Acid (0.7-2.0) mmol/L Urine WBC (Auto) > 182.0 H (0.0-6.0) /HPF - Imaging and Cardiology Chest x-ray: image reviewed Assessment and Plan 69 y/o male with sepsis secondary to urinary source and SVT, per chart underlying afib with RVR. 1. Gave an additional 2 liter bolus 2. Suggest switching to oral therapy for rate control if possible, but hopefully rate will improve with volume expansion 3. Follow up cardiology recs 4. If drip is not being titrated, then patient should be able to go to tele
[2019-12-16] MEDS ORDERED: SODIUM CHLORIDE 0.9% 1000 ML 2,000 ML IV ONE (09:56)
[2019-12-16] MEDS ORDERED: CEFEPIME/NS 2 GM/100 ML 2 GM/100 ML BAG IV ONE (10:29)
[2019-12-16] MEDS ORDERED: SODIUM CHLORIDE 0.9% 1000 ML 2,000 ML ONE (11:07)
--- NOTE | 2019-12-16 11:40 | Consultation ---
HISTORY OF PRESENT ILLNESS: The patient is a 69-year-old male who was admitted with sepsis and probable UTI. He developed SVT that converted with adenosine. A Cardiology consult was requested. The patient has dementia and is unable to assist in the history. There is a history of diabetes, hypertension and BPH with an indwelling Nielson. He was brought in with confusion and he had pulled out his Nielson. There was evidence of infection and there was transient hypotension and the positive lactic acid level. No cardiac history, no stroke history is listed in the medical record. He is currently in sinus rhythm, on a Cardizem drip. ALLERGIES: None. MEDICATIONS: See the nurse's list. SOCIAL HISTORY: Smoking: None. Alcohol: No heavy use. FAMILY HISTORY: No significant family history listed. PREVIOUS SURGERIES: No surgeries listed. REVIEW OF SYSTEMS: No other complaints or medical problems were described. He apparently is at home and cared for by the family. PHYSICAL EXAMINATION: GENERAL: Well-developed, well-nourished, no acute distress, arousable, but confused. EYES, NOSE, AND THROAT: Unremarkable. NECK: Reveals no JVD or bruits. Neck is supple, no masses. LUNGS: Clear. No labored respirations. HEART: Regular rhythm. No rubs, murmurs, or gallops appreciable. ABDOMEN: Soft, nontender, no masses. Bowel sounds intact. EXTREMITIES: No cyanosis, clubbing or edema. Peripheral pulses are intact. NEUROLOGIC: Deferred. SKIN: Clear. DIAGNOSTIC DATA: EKG, there is a narrow complex tachycardia with a heart rate of approximately 172. There is left axis deviation, poor R-wave progression, nonspecific ST-T changes. There appeared to be P waves. The patient appears to have converted after adenosine was given IV, 12 mg. IMPRESSION: 1. Narrow complex tachycardia that converted with adenosine. Unclear if this is AV node reentry, atrial tachycardia or atrial flutter. There is no suggestion of acute coronary syndrome, but cardiac enzymes will be monitored. He will also be checked for previous cardiac history and previous workup. We will perform an echocardiogram in hospital and continue the Cardizem drip. 2. Dementia. 3. Hypertension. 4. Diabetes. 5. Sepsis. 6. Benign prostatic hypertrophy with indwelling Nielson. 7. Obesity. Thank you for this consultation. We will follow the patient. JOB# [id number] MODE/OSMAN
--- NOTE | 2019-12-16 15:24 | Consultation ---
History of Present Illness - Reason for Consult Consult date: 12/16/19 UTI, sepsis Requesting physician: BRIGITTE MORRISON - History of Present Illness The patient is a 69-year-old male with dementia, BPH, diabetes mellitus was admitted to the hospital after he pulled out his Solorio catheter. Patient was then noted to be confused. While in the emergency room, patient developed a fever of 101.9 F. New Solorio was placed. Patient also became hypotensive and went into atrial fibrillation with rapid ventricular rate. Infectious diseases was consulted for sepsis. UA showed significant pyuria. Still somewhat confused. Seen in ED. Maude. Has a new Solorio, draining urine. Review of Systems: Limited due to dementia Past History Past Medical History: diabetes, hypertension, other (Dementia,BPH) Past Surgical History: No surgical history Social history: no significant social history Family history: no significant family history Medications and Allergies Allergies Allergy/AdvReac Type Severity Reaction Status Date / Time No Known Allergies Allergy Verified 10/26/19 14:23 Home Medications Medication Instructions Recorded Confirmed Last Taken Type Tamsulosin [Flomax] 0.4 mg PO QDAY #14 cap 06/16/19 10/24/19 Unknown Rx cephALEXin [Keflex] 500 mg PO Q6HR #40 capsule 06/16/19 10/24/19 Unknown Rx levoFLOXacin [Levaquin TAB] 500 mg PO QDAY #5 tablet 10/25/19 Unknown Rx Active Meds: Active Medications Acetaminophen (Tylenol) 650 mg PO Q4H PRN PRN Reason: Pain MILD(1-3)/Fever >100.5/HERNANDEZ Dextrose (D50w (25gm) Syringe) 50 ml IV Q30MIN PRN; Protocol PRN Reason: Hypoglycemia Heparin Sodium (Porcine) (Heparin) 5,000 unit SUB-Q Q8HR CORINE Last Admin: 12/16/19 06:24 Dose: 5,000 unit Documented by: Cefepime HCl (Cefepime/Ns 2 Gm/100 Ml) 2 gm in 100 mls @ 200 mls/hr IV Q12HR CORINE; Protocol Last Admin: 12/16/19 10:33 Dose: 200 mls/hr Documented by: Sodium Chloride (Nacl 0.9% 1000 Ml) 1,000 mls @ 125 mls/hr IV DIRECT CORINE Last Admin: 12/16/19 04:14 Dose: 125 mls/hr Documented by: Diltiazem HCl (Cardizem/D5w 100mg/100ml) 100 mg in 100 mls @ 5 mls/hr IV TITR CORINE; Protocol Last Admin: 12/16/19 11:45 Dose: 10 mg/hr, 10 mls/hr Documented by: Vancomycin HCl (Vancomycin/Ns 1 Gm/250 Ml) 1 gm in 250 mls @ 167.007 mls/hr IV Q24HR CORINE Insulin Human Lispro (Humalog) 0 unit SUB-Q ACHS CORINE; Protocol Magnesium Hydroxide (Milk Of Magnesia) 30 ml PO Q4H PRN PRN Reason: Constipation Ondansetron HCl (Zofran) 4 mg IV Q8H PRN PRN Reason: Nausea And Vomiting Sodium Chloride (Sodium Chloride Flush Syringe 10 Ml) 10 ml IV BID CORINE Sodium Chloride (Sodium Chloride Flush Syringe 10 Ml) 10 ml IV PRN PRN PRN Reason: LINE FLUSH Physical Examination - Physical Exam Narrative exam: Physical Exam: Constitutional: Alert. No acute distress Head, Ears, Nose: Normocephalic, atraumatic. External ears, nose normal Eyes: Conjunctivae/corneas clear. No icterus. No ptosis. Neck: Supple, no meningeal signs Cardiovascular: S1, S2 normal. Respiratory: Good air entry, clear to auscultation bilaterally GI: Soft, non-tender; bowel sounds normal. No peritoneal signs : solorio + Musculoskeletal: No pedal edema, no cyanosis. Skin: No rash or abscess Hem/Lymphatic: No palpable cervical or supraclavicular nodes. No lymphangitis Psych: no agitation Neurological: Awake, alert, confused - Constitutional Vitals: Vital Signs Temp Pulse Resp BP Pulse Ox 101.0 F H 100 H 18 117/65 95 12/16/19 08:00 12/16/19 14:45 12/16/19 14:45 12/16/19 14:45 12/16/19 14:45 Temperature -Last 24 Hours Temperature 101.0 F Temperature 101.9 F Temperature 97.6 F Results - Labs CBC & Chem 7: 12/15/19 17:32 12/15/19 17:32 Labs: Abnormal lab results 12/15/19 12/15/19 12/15/19 Range/Units 17:32 17:32 21:23 WBC 12.0 H (4.5-11.0) K/mm3 Hgb 11.2 L (11.8-15.2) gm/dl Hct 34.6 L (35.5-45.6) % MCV 76 L (84-94) fl MCH 25 L (28-32) pg RDW 17.6 H (13.2-15.2) % Plt Count 448 H (140-440) K/mm3 Lymph % (Auto) 12.0 L (13.4-35.0) % H[place] % (Auto) 10.5 H (0.0-7.3) % H[place] # (Auto) 1.3 H (0.0-0.8) K/mm3 Seg Neutrophils % 76.8 H (40.0-70.0) % Seg Neutrophils # 9.2 H (1.8-7.7) K/mm3 Sodium 133 L (137-145) mmol/L Chloride 96.0 L (98-107) mmol/L Carbon Dioxide 20 L (22-30) mmol/L BUN 38 H (9-20) mg/dL Creatinine 1.9 H (0.8-1.3) mg/dL Glucose 189 H (75-100) mg/dL POC Glucose (70-105) Lactic Acid 2.50 H* (0.7-2.0) mmol/L Urine WBC (Auto) (0.0-6.0) /HPF 12/15/19 12/16/19 12/16/19 Range/Units 22:37 08:22 11:31 WBC (4.5-11.0) K/mm3 Hgb (11.8-15.2) gm/dl Hct (35.5-45.6) % MCV (84-94) fl MCH (28-32) pg RDW (13.2-15.2) % Plt Count (140-440) K/mm3 Lymph % (Auto) (13.4-35.0) % Hays % (Auto) (0.0-7.3) % [place] # (Auto) (0.0-0.8) K/mm3 Seg Neutrophils % (40.0-70.0) % Seg Neutrophils # (1.8-7.7) K/mm3 Sodium (137-145) mmol/L Chloride (98-107) mmol/L Carbon Dioxide (22-30) mmol/L BUN (9-20) mg/dL Creatinine (0.8-1.3) mg/dL Glucose (75-100) mg/dL POC Glucose 114 H 149 H (70-105) Lactic Acid (0.7-2.0) mmol/L Urine WBC (Auto) > 182.0 H (0.0-6.0) /HPF - Imaging and Cardiology Chest x-ray: report reviewed, image reviewed (no pneumonia) Assessment and Plan Cultures: 12/15/2019 blood culture: In process A/P: 69-year-old male with dementia, BPH, diabetes mellitus was admitted to the hospital after he pulled out his Solorio catheter: #Sepsis, likely secondary to urinary tract infection: Patient pulled out his Solorio catheter at home. UA with pyuria. #WENDY versus CKD: renally dose abx. #Acute encephalopathy Recs: continue IV cefepime, renally dosed Follow-up blood and urine cultures Vancomycin discontinued Caro Marquez MD, FACP [facility] C: [phone] O: [phone] F: [phone]
[2019-12-16] MEDS ORDERED: dilTIAZem 30 MG TAB ONE (18:39)
[2019-12-16] MEDS: dilTIAZem 60 MG TAB PO SCH (18:46)
[2019-12-16] MEDS: CEFEPIME/NS 1 GM/100 ML 1 GM/100 ML BAG IV SCH (23:54)
[2019-12-17] MEDS ORDERED: HALOPERIDOL LACTATE 5 MG/1 ML INJ IV ONE (02:57)
[2019-12-17 05:24] LABS: Hematocrit 28.6 % (35.5-45.6); Hemoglobin 9.3 gm/dl (11.8-15.2); Mean Corpuscular HGB Conc 32 % (32-34); Mean Corpuscular Volume 76 fl (84-94); Platelet Count 332 K/mm3 (140-440); Red Blood Count 3.76 M/mm3 (3.65-5.03); Red Cell Distribution Width 17.9 % (13.2-15.2)
[2019-12-17 05:38] LABS: INR 1.23 (0.87-1.13)
[2019-12-17 05:50] LABS: Calcium 8.6 mg/dL (8.4-10.2)
[2019-12-17] MEDS: HEPARIN 5,000 UNIT/1 ML VIAL SUB-Q SCH ×3 (06:19→23:12)
[2019-12-17] MEDS: dilTIAZem/D5W 100 MG/100 ML BAG IV SCH (06:20)
[2019-12-17 06:27] LABS: Anisocytosis Few; Band Neutrophils # (Manual) 0.5 K/mm3; Basophils % (Manual) 0 % (0.0-1.8); Hypochromasia 1+; Ovalocytes Few; Total Cells Counted 100
[2019-12-17 06:28] LABS: Platelet Estimate Consistent w Auto
[2019-12-17] MEDS: INSULIN LISPRO 100 UNIT/ML VIAL 3 mL SUB-Q SCH ×5 (08:03→23:07)
[2019-12-17] MEDS: SODIUM CHLORIDE 0.9% 1000 ML 1,000 ML IV SCH (08:10)
[2019-12-17] MEDS: dilTIAZem 60 MG TAB PO SCH ×4 (08:17→17:16)
[2019-12-17] MEDS ORDERED: VANCOMYCIN/NS 1 GM/250 ML 1 GM/250 ML BAG IV SCH (10:00)
[2019-12-17] MEDS: CEFEPIME/NS 1 GM/100 ML 1 GM/100 ML BAG IV SCH ×3 (10:23→23:12)
--- NOTE | 2019-12-17 12:40 | Progress Note ---
Assessment and Plan - Patient Problems (1) Acute on chronic kidney failure Current Visit: Yes Status: Acute (2) Cardiac arrhythmia Current Visit: Yes Status: Acute (3) Sepsis Current Visit: Yes Status: Acute (4) Urinary tract infection Current Visit: Yes Status: Acute Subjective Interval history: asleep aas per nurse pt didnt sleep overnight. fatimah maya. Also cardiella george dc Objective Vital Signs - 12hr 12/17/19 12/17/19 12/17/19 00:55 01:00 01:11 Temperature Pulse Rate 96 H 96 H 99 H Pulse Rate [ From Monitor] Respiratory 19 31 H 19 Rate Blood Pressure 114/58 114/58 O2 Sat by Pulse 99 87 95 Oximetry 12/17/19 12/17/19 12/17/19 01:21 01:30 01:41 Temperature Pulse Rate 95 H 94 H 97 H Pulse Rate [ From Monitor] Respiratory 28 H 15 12 Rate Blood Pressure 114/58 124/58 124/58 O2 Sat by Pulse 93 93 94 Oximetry 12/17/19 12/17/19 12/17/19 01:51 02:00 02:11 Temperature Pulse Rate 98 H 101 H 99 H Pulse Rate [ From Monitor] Respiratory 32 H 21 14 Rate Blood Pressure 114/58 124/67 124/67 O2 Sat by Pulse 90 90 94 Oximetry 12/17/19 12/17/19 12/17/19 02:20 02:30 02:41 Temperature Pulse Rate 101 H 89 96 H Pulse Rate [ From Monitor] Respiratory 14 21 18 Rate Blood Pressure 124/67 120/59 120/59 O2 Sat by Pulse 95 Oximetry 12/17/19 12/17/19 12/17/19 02:51 03:00 03:11 Temperature Pulse Rate 103 H 96 H 98 H Pulse Rate [ From Monitor] Respiratory 22 16 16 Rate Blood Pressure 120/59 127/62 127/62 O2 Sat by Pulse 96 95 89 Oximetry 12/17/19 12/17/19 12/17/19 03:21 03:28 03:30 Temperature 98.8 F Pulse Rate 87 87 Pulse Rate [ From Monitor] Respiratory 24 24 Rate Blood Pressure 127/62 134/56 O2 Sat by Pulse 98 95 Oximetry 12/17/19 12/17/19 12/17/19 03:41 03:51 04:00 Temperature Pulse Rate 80 74 75 Pulse Rate [ From Monitor] Respiratory 20 19 19 Rate Blood Pressure 134/56 127/62 89/45 O2 Sat by Pulse 100 99 100 Oximetry 12/17/19 12/17/19 12/17/19 04:11 04:20 04:30 Temperature Pulse Rate 75 74 92 H Pulse Rate [ From Monitor] Respiratory 21 17 23 Rate Blood Pressure 89/45 100/53 122/66 O2 Sat by Pulse 100 100 97 Oximetry 12/17/19 12/17/19 12/17/19 04:41 04:51 05:00 Temperature Pulse Rate 104 H 100 H 96 H Pulse Rate [ From Monitor] Respiratory 21 18 20 Rate Blood Pressure 122/66 122/66 132/69 O2 Sat by Pulse 88 92 99 Oximetry 12/17/19 12/17/19 12/17/19 05:11 05:20 05:30 Temperature Pulse Rate 95 H 95 H 95 H Pulse Rate [ From Monitor] Respiratory 17 15 16 Rate Blood Pressure 132/69 132/69 132/69 O2 Sat by Pulse 96 90 97 Oximetry 12/17/19 12/17/19 12/17/19 05:40 05:50 06:00 Temperature Pulse Rate 94 H 100 H 95 H Pulse Rate [ From Monitor] Respiratory 23 21 22 Rate Blood Pressure 129/60 129/60 129/60 O2 Sat by Pulse 96 87 89 Oximetry 12/17/19 12/17/19 12/17/19 06:10 06:20 06:30 Temperature Pulse Rate 90 96 H 93 H Pulse Rate [ From Monitor] Respiratory 12 16 26 H Rate Blood Pressure 127/60 127/60 127/60 O2 Sat by Pulse 99 95 89 Oximetry 12/17/19 12/17/19 12/17/19 06:40 06:50 07:00 Temperature Pulse Rate 90 85 90 Pulse Rate [ From Monitor] Respiratory 11 L 23 17 Rate Blood Pressure 120/62 120/62 126/61 O2 Sat by Pulse 100 100 Oximetry 12/17/19 12/17/19 12/17/19 07:10 07:20 07:30 Temperature Pulse Rate 94 H 94 H 90 Pulse Rate [ From Monitor] Respiratory 18 16 16 Rate Blood Pressure 120/62 120/62 120/62 O2 Sat by Pulse 100 96 96 Oximetry 12/17/19 12/17/19 12/17/19 07:40 07:50 08:00 Temperature 97.8 F Pulse Rate 95 H 96 H 92 H Pulse Rate [ 92 H From Monitor] Respiratory 17 20 20 Rate Blood Pressure 120/62 126/61 132/65 O2 Sat by Pulse 97 99 98 Oximetry 12/17/19 12/17/19 12/17/19 08:10 08:17 08:20 Temperature Pulse Rate 93 H 88 91 H Pulse Rate [ From Monitor] Respiratory 17 21 Rate Blood Pressure 132/65 132/65 132/65 O2 Sat by Pulse 100 98 Oximetry 12/17/19 12/17/19 12/17/19 08:30 08:40 08:50 Temperature Pulse Rate 94 H 91 H 95 H Pulse Rate [ From Monitor] Respiratory 20 20 18 Rate Blood Pressure 133/65 133/65 132/65 O2 Sat by Pulse 98 100 97 Oximetry 12/17/19 12/17/19 12/17/19 09:00 09:10 09:20 Temperature Pulse Rate 91 H 82 100 H Pulse Rate [ From Monitor] Respiratory 21 17 17 Rate Blood Pressure 122/62 122/62 122/62 O2 Sat by Pulse 99 100 97 Oximetry 12/17/19 12/17/19 12/17/19 09:30 09:40 09:50 Temperature Pulse Rate 96 H 95 H 83 Pulse Rate [ From Monitor] Respiratory 24 12 19 Rate Blood Pressure 127/70 127/70 127/70 O2 Sat by Pulse 100 100 98 Oximetry 12/17/19 12/17/19 12/17/19 10:00 10:10 10:20 Temperature Pulse Rate 97 H 94 H 89 Pulse Rate [ From Monitor] Respiratory 17 20 20 Rate Blood Pressure 127/70 139/70 139/70 O2 Sat by Pulse 99 100 99 Oximetry 12/17/19 12/17/19 12/17/19 10:30 10:40 10:50 Temperature Pulse Rate 81 95 H 82 Pulse Rate [ From Monitor] Respiratory 21 12 18 Rate Blood Pressure 127/52 127/52 139/70 O2 Sat by Pulse 100 98 100 Oximetry 12/17/19 12/17/19 12/17/19 11:00 11:10 11:20 Temperature Pulse Rate 72 78 73 Pulse Rate [ From Monitor] Respiratory 18 20 15 Rate Blood Pressure 113/49 113/49 113/49 O2 Sat by Pulse 100 99 99 Oximetry 12/17/19 12/17/19 12/17/19 11:30 11:40 11:50 Temperature Pulse Rate 75 78 99 H Pulse Rate [ From Monitor] Respiratory 13 18 25 H Rate Blood Pressure 113/49 114/48 114/48 O2 Sat by Pulse 100 100 96 Oximetry 12/17/19 12/17/19 12/17/19 12:00 12:10 12:20 Temperature Pulse Rate 88 87 92 H Pulse Rate [ 90 From Monitor] Respiratory 25 H 13 22 Rate Blood Pressure 114/48 131/60 131/60 O2 Sat by Pulse 92 92 100 Oximetry Constitutional: no acute distress, asleep ENT: oropharynx moist Neck: supple Ascultation: Bilateral: clear Cardiovascular: regular rate and rhythm Gastrointestinal: normoactive bowel sounds, soft, non-tender Integumentary: normal Extremities: no cyanosis CBC and BMP: 12/17/19 04:47 12/17/19 04:47 ABG, PT/INR, D-dimer: PT/INR, D-dimer PT 15.7 Sec. (12.2-14.9) H 12/17/19 04:47 INR 1.23 (0.87-1.13) H 12/17/19 04:47 Abnormal lab findings: Abnormal Labs 12/15/19 12/15/19 12/15/19 17:32 17:32 21:23 WBC 12.0 H Hgb 11.2 L Hct 34.6 L MCV 76 L MCH 25 L RDW 17.6 H Plt Count 448 H Lymph % (Auto) 12.0 L Loving % (Auto) 10.5 H Loving # (Auto) 1.3 H Seg Neutrophils % 76.8 H Seg Neuts % (Manual) Lymphocytes % (Manual) Eosinophils % (Manual) Seg Neutrophils # 9.2 H Seg Neutrophils # Man Monocytes # (Manual) Eosinophils # (Manual) PT INR Sodium 133 L Chloride 96.0 L Carbon Dioxide 20 L BUN 38 H Creatinine 1.9 H Glucose 189 H POC Glucose Lactic Acid 2.50 H* Urine WBC (Auto) 12/15/19 12/16/19 12/16/19 22:37 08:22 11:31 WBC Hgb Hct MCV MCH RDW Plt Count Lymph % (Auto) Loving % (Auto) Loving # (Auto) Seg Neutrophils % Seg Neuts % (Manual) Lymphocytes % (Manual) Eosinophils % (Manual) Seg Neutrophils # Seg Neutrophils # Man Monocytes # (Manual) Eosinophils # (Manual) PT INR Sodium Chloride Carbon Dioxide BUN Creatinine Glucose POC Glucose 114 H 149 H Lactic Acid Urine WBC (Auto) > 182.0 H 12/16/19 12/16/19 12/17/19 17:45 22:40 04:47 WBC 23.7 H Hgb 9.3 L Hct 28.6 L D MCV 76 L MCH 25 L RDW 17.9 H Plt Count Lymph % (Auto) Loving % (Auto) Loving # (Auto) Seg Neutrophils % Seg Neuts % (Manual) 79.0 H Lymphocytes % (Manual) 7.0 L Eosinophils % (Manual) 6.0 H Seg Neutrophils # Seg Neutrophils # Man 18.7 H Monocytes # (Manual) 1.4 H Eosinophils # (Manual) 1.4 H PT INR Sodium Chloride Carbon Dioxide BUN Creatinine Glucose POC Glucose 138 H 120 H Lactic Acid Urine WBC (Auto) 12/17/19 12/17/19 04:47 04:47 WBC Hgb Hct MCV MCH RDW Plt Count Lymph % (Auto) Loving % (Auto) Loving # (Auto) Seg Neutrophils % Seg Neuts % (Manual) Lymphocytes % (Manual) Eosinophils % (Manual) Seg Neutrophils # Seg Neutrophils # Man Monocytes # (Manual) Eosinophils # (Manual) PT 15.7 H INR 1.23 H Sodium 148 H D Chloride 114.6 H Carbon Dioxide 16 L BUN 25 H Creatinine 1.5 H Glucose POC Glucose Lactic Acid Urine WBC (Auto)
--- NOTE | 2019-12-17 13:05 | Progress Note ---
Assessment and Plan Cultures: 12/15/2019 blood culture: 1/4 GPC 12/15/2019 urine culture: mixed zaria A/P: 69-year-old male with dementia, BPH, diabetes mellitus was admitted to the hospital after he pulled out his Solorio catheter: #Sepsis, likely secondary to urinary tract infection: Patient pulled out his Solorio catheter at home. UA with pyuria. #GPC bacteremia: 03/23 bottles. ?contaminant #WENDY versus CKD: creatinine improving. renally dose abx. #Acute encephalopathy Recs: continue IV cefepime, renally dosed Repeat blood cultures ordered due to GPC in initial set, restarted IV Vancomycin Follow-up blood and urine cultures Caro Marquez MD, FACP [facility] C: [phone] O: [phone] F: [phone] Subjective Date of service: 12/17/19 Interval history: Afebrile today. Still a little confused. Solorio present, draining clear urine. Objective - Exam Narrative Exam: Physical Exam: Constitutional: Alert. No acute distress Head, Ears, Nose: Normocephalic, atraumatic. External ears, nose normal Eyes: Conjunctivae/corneas clear. No icterus. No ptosis. Neck: Supple, no meningeal signs Cardiovascular: S1, S2 normal. Respiratory: Good air entry, clear to auscultation bilaterally GI: Soft, non-tender; bowel sounds normal. No peritoneal signs : solorio + Musculoskeletal: No pedal edema, no cyanosis. Skin: No rash or abscess Hem/Lymphatic: No palpable cervical or supraclavicular nodes. No lymphangitis Psych: no agitation Neurological: Awake, alert, but confused - Constitutional Vitals: Vital Signs Temp Pulse Resp BP Pulse Ox 97.8 F 92 H 22 131/60 100 12/17/19 08:00 12/17/19 12:20 12/17/19 12:20 12/17/19 12:20 12/17/19 12:20 Temperature -Last 24 Hours Temperature 97.8 F Temperature 98.8 F Temperature 98 F Temperature 98.4 F Temperature 99.9 F - Labs CBC & Chem 7: 12/17/19 04:47 12/17/19 04:47 Labs: Abnormal lab results 12/16/19 12/16/1920 Range/Units 17:45 22:40 04:47 WBC 23.7 H (4.5-11.0) K/mm3 Hgb 9.3 L (11.8-15.2) gm/dl Hct 28.6 L D (35.5-45.6) % MCV 76 L (84-94) fl MCH 25 L (28-32) pg RDW 17.9 H (13.2-15.2) % Seg Neuts % (Manual) 79.0 H (40.0-70.0) % Lymphocytes % (Manual) 7.0 L (13.4-35.0) % Eosinophils % (Manual) 6.0 H (0.0-4.3) % Seg Neutrophils # Man 18.7 H (1.8-7.7) K/mm3 Monocytes # (Manual) 1.4 H (0.0-0.8) K/mm3 Eosinophils # (Manual) 1.4 H (0.0-0.4) K/mm3 PT (12.2-14.9) Sec. INR (0.87-1.13) Sodium (137-145) mmol/L Chloride (98-107) mmol/L Carbon Dioxide (22-30) mmol/L BUN (9-20) mg/dL Creatinine (0.8-1.3) mg/dL POC Glucose 138 H 120 H (70-105) 12/17/19 12/17/19 Range/Units 04:47 04:47 WBC (4.5-11.0) K/mm3 Hgb (11.8-15.2) gm/dl Hct (35.5-45.6) % MCV (84-94) fl MCH (28-32) pg RDW (13.2-15.2) % Seg Neuts % (Manual) (40.0-70.0) % Lymphocytes % (Manual) (13.4-35.0) % Eosinophils % (Manual) (0.0-4.3) % Seg Neutrophils # Man (1.8-7.7) K/mm3 Monocytes # (Manual) (0.0-0.8) K/mm3 Eosinophils # (Manual) (0.0-0.4) K/mm3 PT 15.7 H (12.2-14.9) Sec. INR 1.23 H (0.87-1.13) Sodium 148 H D (137-145) mmol/L Chloride 114.6 H (98-107) mmol/L Carbon Dioxide 16 L (22-30) mmol/L BUN 25 H (9-20) mg/dL Creatinine 1.5 H (0.8-1.3) mg/dL POC Glucose (70-105)
--- NOTE | 2019-12-17 13:20 | Progress Note ---
<STAR PARKS - Last Filed: 12/17/19 13:19> Assessment and Plan Rapid Atrial flutter, 2:1, has reverted to sinus rhythm on diltiazem for suppression normal LVEF 55-605 by echo Altered mental status Sepsis Hypertension Diabetes BPH Subjective Date of service: 12/17/19 Interval history: Patient is resting in bed comfortably. Stable sinus rhythm on telemetry. Objective Vital Signs Temp Pulse Pulse Pulse Resp BP Pulse Ox 12/17/19 12:20 92 H 22 131/60 100 12/17/19 12:10 87 13 131/60 92 12/17/19 12:00 88 90 25 H 114/48 92 12/17/19 11:50 99 H 25 H 114/48 96 12/17/19 11:40 78 18 114/48 100 12/17/19 11:30 75 13 113/49 100 12/17/19 11:20 73 15 113/49 99 12/17/19 11:10 78 20 113/49 99 12/17/19 11:00 72 18 113/49 100 12/17/19 10:50 82 18 139/70 100 12/17/19 10:40 95 H 12 127/52 98 12/17/19 10:30 81 21 127/52 100 12/17/19 10:20 89 20 139/70 99 12/17/19 10:10 94 H 20 139/70 100 12/17/19 10:00 97 H 17 127/70 99 12/17/19 09:50 83 19 127/70 98 12/17/19 09:40 95 H 12 127/70 100 12/17/19 09:30 96 H 24 127/70 100 12/17/19 09:20 100 H 17 122/62 97 12/17/19 09:10 82 17 122/62 100 12/17/19 09:00 91 H 21 122/62 99 12/17/19 08:50 95 H 18 132/65 97 12/17/19 08:40 91 H 20 133/65 100 12/17/19 08:30 94 H 20 133/65 98 12/17/19 08:20 91 H 21 132/65 98 12/17/19 08:17 88 132/65 12/17/19 08:10 93 H 17 132/65 100 12/17/19 08:00 97.8 F 92 H 92 H 20 132/65 98 12/17/19 07:50 96 H 20 126/61 99 12/17/19 07:40 95 H 17 120/62 97 12/17/19 07:30 90 16 120/62 96 12/17/19 07:20 94 H 16 120/62 96 12/17/19 07:10 94 H 18 120/62 100 12/17/19 07:00 90 17 126/61 100 12/17/19 06:50 85 23 120/62 100 12/17/19 06:40 90 11 L 120/62 12/17/19 06:30 93 H 26 H 127/60 89 12/17/19 06:20 96 H 16 127/60 95 12/17/19 06:10 90 12 127/60 99 12/17/19 06:00 95 H 22 129/60 89 12/17/19 05:50 100 H 21 129/60 87 12/17/19 05:40 94 H 23 129/60 96 12/17/19 05:30 95 H 16 132/69 97 12/17/19 05:20 95 H 15 132/69 90 12/17/19 05:11 95 H 17 132/69 96 12/17/19 05:00 96 H 20 132/69 99 12/17/19 04:51 100 H 18 122/66 92 12/17/19 04:41 104 H 21 122/66 88 12/17/19 04:30 92 H 23 122/66 97 12/17/19 04:20 74 17 100/53 100 12/17/19 04:11 75 21 89/45 100 12/17/19 04:00 75 19 89/45 100 12/17/19 03:51 74 19 127/62 99 12/17/19 03:41 80 20 134/56 100 12/17/19 03:30 87 24 134/56 95 12/17/19 03:28 98.8 F 12/17/19 03:21 87 24 127/62 98 12/17/19 03:11 98 H 16 127/62 89 12/17/19 03:00 96 H 16 127/62 95 12/17/19 02:51 103 H 22 120/59 96 12/17/19 02:41 96 H 18 120/59 95 09/29/20 02:30 89 21 120/59 09/29/20 02:20 101 H 14 124/67 12/17/19 02:11 99 H 14 124/67 94 12/17/19 02:00 101 H 21 124/67 90 12/17/19 01:51 98 H 32 H 114/58 90 12/17/19 01:41 97 H 12 124/58 94 12/17/19 01:30 94 H 15 124/58 93 12/17/19 01:21 95 H 28 H 114/58 93 12/17/19 01:11 99 H 19 114/58 95 12/17/19 01:00 96 H 31 H 114/58 87 12/17/19 00:55 96 H 19 99 12/17/19 00:30 104 H 15 12/17/19 00:00 95 H 95 H 27 H 126/60 95 12/16/19 23:29 98 F 12/16/19 23:00 98 H 21 128/60 95 12/16/19 22:30 95 H 22 127/61 95 12/16/19 22:00 98.4 F 95 H 12/16/19 21:30 98 H 16 122/68 97 12/16/19 21:21 97 H 22 121/55 96 12/16/19 21:11 97 H 27 H 115/62 96 12/16/19 21:00 98 H 25 H 115/62 96 12/16/19 20:51 98 H 12 119/63 98 12/16/19 20:41 88 21 116/64 92 12/16/19 20:30 96 H 20 116/64 96 12/16/19 20:21 98 H 16 120/64 96 12/16/19 20:11 98 H 14 116/65 96 12/16/19 20:00 100 H 27 H 116/65 98 12/16/19 19:51 96 H 26 H 117/61 95 12/16/19 19:41 92 H 27 H 114/64 96 12/16/19 19:30 97 H 19 114/64 12/16/19 19:25 100 H 24 117/63 95 12/16/19 19:15 96 H 27 H 117/63 12/16/19 19:00 102 H 22 118/57 96 12/16/19 18:46 90 116/60 09/28/20 18:45 93 H 21 95/52 96 12/16/19 18:30 93 H 15 116/60 100 12/16/19 18:15 95 H 25 H 111/60 100 12/16/19 18:00 92 H 23 116/61 100 12/16/19 17:45 99 H 26 H 120/63 100 12/16/19 17:30 97 H 25 H 120/62 97 12/16/19 17:15 97 H 20 120/59 100 12/16/19 17:00 100 H 22 116/62 100 12/16/19 16:45 99 H 27 H 117/65 100 12/16/19 16:31 96 H 21 117/65 97 12/16/19 16:15 100 H 26 H 117/65 98 12/16/19 16:01 100 H 29 H 117/65 93 12/16/19 15:45 99 H 21 117/65 98 12/16/19 15:31 100 H 25 H 117/65 95 12/16/19 15:30 99.9 F H 12/16/19 15:15 101 H 22 117/65 98 12/16/19 15:01 100 H 28 H 117/65 88 12/16/19 14:45 100 H 18 117/65 95 12/16/19 14:31 98 H 25 H 117/65 99 12/16/19 14:15 101 H 27 H 117/65 12/16/19 14:00 102 H 29 H 116/63 12/16/19 13:45 102 H 22 107/62 12/16/19 13:30 101 H 28 H 105/61 - Physical Examination General: No Apparent Distress Cardiac: Positive: Reg Rate and Rhythm - Labs and Meds Coagulation 12/17/19 Range/Units 04:47 PT 15.7 H (12.2-14.9) Sec. INR 1.23 H (0.87-1.13) CBC 12/17/19 Range/Units 04:47 WBC 23.7 H (4.5-11.0) K/mm3 RBC 3.76 (3.65-5.03) M/mm3 Hgb 9.3 L (11.8-15.2) gm/dl Hct 28.6 L D (35.5-45.6) % Plt Count 332 (140-440) K/mm3 Comprehensive Metabolic Panel 12/17/19 Range/Units 04:47 Sodium 148 H D (137-145) mmol/L Potassium 3.8 D (3.6-5.0) mmol/L Chloride 114.6 H (98-107) mmol/L Carbon Dioxide 16 L (22-30) mmol/L BUN 25 H (9-20) mg/dL Creatinine 1.5 H (0.8-1.3) mg/dL Glucose 77 (75-100) mg/dL Calcium 8.6 (8.4-10.2) mg/dL <LISA MATAMOROS - Last Filed: 12/17/19 15:08> Assessment and Plan - Patient Problems (1) Atrial flutter Current Visit: Yes Status: Acute Plan to address problem: The patient was admitted with altered mental status, sepsis, and during hospitalization found to have narrow complex tachycardia currently treated with Cardizem. The left ventricular ejection fraction is 55 to 60%. Review of the ECG strips show likely atrial flutter 2-1 at the time of the sustained narrow complex tachycardia. We will continue medical therapy with Cardizem and further treatment in the long-term including oral anticoagulation will depend on evidence of atrial flutter recurrence as well as patient's overall bleeding risk. Objective Vital Signs Temp Pulse Pulse Pulse Resp BP Pulse Ox 12/17/19 14:00 85 21 129/59 100 12/17/19 13:50 85 18 127/63 97 12/17/19 13:40 83 22 127/63 91 12/17/19 13:33 81 127/63 12/17/19 13:30 89 24 127/64 12/17/19 13:23 89 127/64 12/17/19 13:10 85 22 127/64 93 12/17/19 13:00 94 H 23 127/64 100 12/17/19 12:50 92 H 23 124/59 97 12/17/19 12:40 91 H 15 124/59 91 12/17/19 12:30 93 H 20 124/59 92 12/17/19 12:20 92 H 22 131/60 100 12/17/19 12:10 87 13 131/60 92 12/17/19 12:00 97.7 F 88 90 25 H 114/48 92 12/17/19 11:50 99 H 25 H 114/48 96 12/17/19 11:40 78 18 114/48 100 12/17/19 11:30 75 13 113/49 100 12/17/19 11:20 73 15 113/49 99 12/17/19 11:10 78 20 113/49 99 12/17/19 11:00 72 18 113/49 100 12/17/19 10:50 82 18 139/70 100 12/17/19 10:40 95 H 12 127/52 98 12/17/19 10:30 81 21 127/52 100 12/17/19 10:20 89 20 139/70 99 12/17/19 10:10 94 H 20 139/70 100 12/17/19 10:00 97 H 17 127/70 99 12/17/19 09:50 83 19 127/70 98 12/17/19 09:40 95 H 12 127/70 100 12/17/19 09:30 96 H 24 127/70 100 12/17/19 09:20 100 H 17 122/62 97 12/17/19 09:10 82 17 122/62 100 12/17/19 09:00 91 H 21 122/62 99 12/17/19 08:50 95 H 18 132/65 97 12/17/19 08:40 91 H 20 133/65 100 12/17/19 08:30 94 H 20 133/65 98 12/17/19 08:20 91 H 21 132/65 98 12/17/19 08:17 88 132/65 12/17/19 08:10 93 H 17 132/65 100 12/17/19 08:00 97.8 F 92 H 92 H 20 132/65 98 12/17/19 07:50 96 H 20 126/61 99 12/17/19 07:40 95 H 17 120/62 97 12/17/19 07:30 90 16 120/62 96 12/17/19 07:20 94 H 16 120/62 96 12/17/19 07:10 94 H 18 120/62 100 12/17/19 07:00 90 17 126/61 100 12/17/19 06:50 85 23 120/62 100 12/17/19 06:40 90 11 L 120/62 12/17/19 06:30 93 H 26 H 127/60 89 12/17/19 06:20 96 H 16 127/60 95 12/17/19 06:10 90 12 127/60 99 12/17/19 06:00 95 H 22 129/60 89 12/17/19 05:50 100 H 21 129/60 87 12/17/19 05:40 94 H 23 129/60 96 12/17/19 05:30 95 H 16 132/69 97 12/17/19 05:20 95 H 15 132/69 90 12/17/19 05:11 95 H 17 132/69 96 12/17/19 05:00 96 H 20 132/69 99 12/17/19 04:51 100 H 18 122/66 92 12/17/19 04:41 104 H 21 122/66 88 12/17/19 04:30 92 H 23 122/66 97 12/17/19 04:20 74 17 100/53 100 12/17/19 04:11 75 21 89/45 100 12/17/19 04:00 75 19 89/45 100 12/17/19 03:51 74 19 127/62 99 12/17/19 03:41 80 20 134/56 100 12/17/19 03:30 87 24 134/56 95 12/17/19 03:28 98.8 F 12/17/19 03:21 87 24 127/62 98 12/17/19 03:11 98 H 16 127/62 89 12/17/19 03:00 96 H 16 127/62 95 12/17/19 02:51 103 H 22 120/59 96 12/17/19 02:41 96 H 18 120/59 95 12/17/19 02:30 89 21 120/59 12/17/19 02:20 101 H 14 124/67 12/17/19 02:11 99 H 14 124/67 94 12/17/19 02:00 101 H 21 124/67 90 12/17/19 01:51 98 H 32 H 114/58 90 12/17/19 01:41 97 H 12 124/58 94 12/17/19 01:30 94 H 15 124/58 93 12/17/19 01:21 95 H 28 H 114/58 93 12/17/19 01:11 99 H 19 114/58 95 12/17/19 01:00 96 H 31 H 114/58 87 12/17/19 00:55 96 H 19 99 09/29/20 00:30 104 H 15 12/17/19 00:00 95 H 95 H 27 H 126/60 95 12/16/19 23:29 98 F 12/16/19 23:00 98 H 21 128/60 95 12/16/19 22:30 95 H 22 127/61 95 12/16/19 22:00 98.4 F 95 H 12/16/19 21:30 98 H 16 122/68 97 12/16/19 21:21 97 H 22 121/55 96 12/16/19 21:11 97 H 27 H 115/62 96 12/16/19 21:00 98 H 25 H 115/62 96 12/16/19 20:51 98 H 12 119/63 98 12/16/19 20:41 88 21 116/64 92 12/16/19 20:30 96 H 20 116/64 96 12/16/19 20:21 98 H 16 120/64 96 12/16/19 20:11 98 H 14 116/65 96 12/16/19 20:00 100 H 27 H 116/65 98 12/16/19 19:51 96 H 26 H 117/61 95 12/16/19 19:41 92 H 27 H 114/64 96 12/16/19 19:30 97 H 19 114/64 12/16/19 19:25 100 H 24 117/63 95 12/16/19 19:15 96 H 27 H 117/63 12/16/19 19:00 102 H 22 118/57 96 12/16/19 18:46 90 116/60 12/16/19 18:45 93 H 21 95/52 96 12/16/19 18:30 93 H 15 116/60 100 12/16/19 18:15 95 H 25 H 111/60 100 12/16/19 18:00 92 H 23 116/61 100 12/16/19 17:45 99 H 26 H 120/63 100 12/16/19 17:30 97 H 25 H 120/62 97 12/16/19 17:15 97 H 20 120/59 100 12/16/19 17:00 100 H 22 116/62 100 12/16/19 16:45 99 H 27 H 117/65 100 12/16/19 16:31 96 H 21 117/65 97 12/16/19 16:15 100 H 26 H 117/65 98 12/16/19 16:01 100 H 29 H 117/65 93 12/16/19 15:45 99 H 21 117/ 98 12/16/19 15:31 100 H 25 H 117/65 95 12/16/19 15:30 99.9 F H 12/16/19 15:15 101 H 22 117/ 98 - Labs and Meds Coagulation 12/17/19 Range/Units 04:47 PT 15.7 H (12.2-14.9) Sec. INR 1.23 H (0.87-1.13) CBC 12/17/19 Range/Units 04:47 WBC 23.7 H (4.5-11.0) K/mm3 RBC 3.76 (3.65-5.03) M/mm3 Hgb 9.3 L (11.8-15.2) gm/dl Hct 28.6 L D (35.5-45.6) % Plt Count 332 (140-440) K/mm3 Comprehensive Metabolic Panel 12/17/19 Range/Units 04:47 Sodium 148 H D (137-145) mmol/L Potassium 3.8 D (3.6-5.0) mmol/L Chloride 114.6 H (98-107) mmol/L Carbon Dioxide 16 L (22-30) mmol/L BUN 25 H (9-20) mg/dL Creatinine 1.5 H (0.8-1.3) mg/dL Glucose 77 (75-100) mg/dL Calcium 8.6 (8.4-10.2) mg/dL
[2019-12-17] MEDS ORDERED: VANCOMYCIN PHARMACY TO DOSE IV SCH (14:00)
[2019-12-17] MEDS: VANCOMYCIN/NS 1 GM/250 ML 1 GM/250 ML BAG IV SCH (14:25)
[2019-12-17] MEDS: SODIUM CHLORIDE 0.45% 1000 ML 1,000 ML IV SCH (14:34)
--- NOTE | 2019-12-17 17:26 | Progress Note ---
Assessment and Plan --Urinary tract infection Patient placed on empiric IV antibiotics. We await urine culture result. -- Urinary retention due to benign prostatic hyperplasia Patient has had Nielson catheter replaced. -- Sepsis Patient is continued on empiric IV antibiotics and IV fluid. Consulted to infectious disease for further evaluation and recommendation. -- Diabetes type 2 We will monitor Accu-Cheks. -- WENDY (acute kidney injury) Patient placed on IV fluid and will continue to monitor BUN and creatinine. -- Cardiac arrhythmia Patient went into SVT and later into A. fib. He is s/p Cardizem drip. consulted cardiology -will follow recommendation for AC --Dementia, cont supportive care -- DVT prophylaxis Patient placed on subcutaneous heparin. -- Full code status Brief History; 69-year-old male with known history of dementia, BPH and diabetes mellitus seen in the emergency room for evaluation of confusion and dislodgment of an indwelling Nielson catheter. Work-up in the emergency room reveals a urinary tract infection with accompanying sepsis. He was started on IV fluid and empiric IV antibiotics. However during the course of his stay in the emergency room patient was said to have gone into SVT and also what appeared to be atrial fibrillation. He was initially given IV adenosine without any significant improvement in his rate and patient subsequently placed on Cardizem drip. He became hypotensive and he continued to have aggressive IV hydration. Patient admitted into the intensive care unit for close monitoring. 12/16: Patient off Cardizem drip, started on p.o. Cardizem, heart rate stable, r emains confused with restrain. Transfer to telemetry. Subjective Date of service: 12/17/19 Interval history: Patient seen and examined discussed with RN at bedside patient denies any chest pain off Cardizem drip Objective - Exam Narrative Exam: General appearance: Present: no acute distress, well-nourished - EENT Eyes: Present: PERRL, EOM intact ENT: hearing intact, clear oral mucosa, dentition normal - Neck Neck: Present: supple, normal ROM - Respiratory Respiratory effort: normal Respiratory: bilateral: CTA - Cardiovascular Rhythm: regular Heart Sounds: Present: S1 & S2. Absent: gallop, systolic murmur, diastolic murmur, rub - Extremities Extremities: no ischemia, pulses intact, pulses symmetrical, No edema, Full ROM Peripheral Pulses: within normal limits - Abdominal General gastrointestinal: Present: soft, non-tender, non-distended, normal bowel sounds. Absent: mass - Integumentary Integumentary: Present: clear, warm, dry - Musculoskeletal Musculoskeletal: strength equal bilaterally - Neurologic Neurologic: CNII-XII intact, no focal deficits, moves all extremities - Constitutional Vitals: Vital Signs - 12hr 12/17/19 12/17/19 12/17/19 05:30 05:40 05:50 Temperature Pulse Rate 95 H 94 H 100 H Pulse Rate [ From Monitor] Respiratory 16 23 21 Rate Blood Pressure 132/69 129/60 129/60 O2 Sat by Pulse 97 96 87 Oximetry 12/17/19 12/17/19 12/17/19 06:00 06:10 06:20 Temperature Pulse Rate 95 H 90 96 H Pulse Rate [ From Monitor] Respiratory 22 12 16 Rate Blood Pressure 129/60 127/60 127/60 O2 Sat by Pulse 89 99 95 Oximetry 12/17/19 12/17/19 12/17/19 06:30 06:40 06:50 Temperature Pulse Rate 93 H 90 85 Pulse Rate [ From Monitor] Respiratory 26 H 11 L 23 Rate Blood Pressure 127/60 120/62 120/62 O2 Sat by Pulse 89 100 Oximetry 12/17/19 12/17/19 12/17/19 07:00 07:10 07:20 Temperature Pulse Rate 90 94 H 94 H Pulse Rate [ From Monitor] Respiratory 17 18 16 Rate Blood Pressure 126/61 120/62 120/62 O2 Sat by Pulse 100 100 96 Oximetry 12/17/19 12/17/19 12/17/19 07:30 07:40 07:50 Temperature Pulse Rate 90 95 H 96 H Pulse Rate [ From Monitor] Respiratory 16 17 20 Rate Blood Pressure 120/62 120/62 126/61 O2 Sat by Pulse 96 97 99 Oximetry 12/17/19 12/17/19 12/17/19 08:00 08:10 08:17 Temperature 97.8 F Pulse Rate 92 H 93 H 88 Pulse Rate [ 92 H From Monitor] Respiratory 20 17 Rate Blood Pressure 132/65 132/65 132/65 O2 Sat by Pulse 98 100 Oximetry 12/17/19 12/17/19 12/17/19 08:20 08:30 08:40 Temperature Pulse Rate 91 H 94 H 91 H Pulse Rate [ From Monitor] Respiratory 21 20 20 Rate Blood Pressure 132/65 133/65 133/65 O2 Sat by Pulse 98 98 100 Oximetry 12/17/19 12/17/19 12/17/19 08:50 09:00 09:10 Temperature Pulse Rate 95 H 91 H 82 Pulse Rate [ From Monitor] Respiratory 18 21 17 Rate Blood Pressure 132/65 122/62 122/62 O2 Sat by Pulse 97 99 100 Oximetry 12/17/19 12/17/19 12/17/19 09:20 09:30 09:40 Temperature Pulse Rate 100 H 96 H 95 H Pulse Rate [ From Monitor] Respiratory 17 24 12 Rate Blood Pressure 122/62 127/70 127/70 O2 Sat by Pulse 97 100 100 Oximetry 12/17/19 12/17/19 12/17/19 09:50 10:00 10:10 Temperature Pulse Rate 83 97 H 94 H Pulse Rate [ From Monitor] Respiratory 19 17 20 Rate Blood Pressure 127/70 127/70 139/70 O2 Sat by Pulse 98 99 100 Oximetry 12/17/19 12/17/19 12/17/19 10:20 10:30 10:40 Temperature Pulse Rate 89 81 95 H Pulse Rate [ From Monitor] Respiratory 20 21 12 Rate Blood Pressure 139/70 127/52 127/52 O2 Sat by Pulse 99 100 98 Oximetry 12/17/19 12/17/19 12/17/19 10:50 11:00 11:10 Temperature Pulse Rate 82 72 78 Pulse Rate [ From Monitor] Respiratory 18 18 20 Rate Blood Pressure 139/70 113/49 113/49 O2 Sat by Pulse 100 100 99 Oximetry 12/17/19 12/17/19 12/17/19 11:20 11:30 11:40 Temperature Pulse Rate 73 75 78 Pulse Rate [ From Monitor] Respiratory 15 13 18 Rate Blood Pressure 113/49 113/49 114/48 O2 Sat by Pulse 99 100 100 Oximetry 12/17/19 12/17/19 12/17/19 11:50 12:00 12:10 Temperature 97.7 F Pulse Rate 99 H 88 87 Pulse Rate [ 90 From Monitor] Respiratory 25 H 25 H 13 Rate Blood Pressure 114/48 114/48 131/60 O2 Sat by Pulse 96 92 92 Oximetry 12/17/19 12/17/19 12/17/19 12:20 12:30 12:40 Temperature Pulse Rate 92 H 93 H 91 H Pulse Rate [ From Monitor] Respiratory 22 20 15 Rate Blood Pressure 131/60 124/59 124/59 O2 Sat by Pulse 100 92 91 Oximetry 12/17/19 12/17/19 12/17/19 12:50 13:00 13:10 Temperature Pulse Rate 92 H 94 H 85 Pulse Rate [ From Monitor] Respiratory 23 23 22 Rate Blood Pressure 124/59 127/64 127/64 O2 Sat by Pulse 97 100 93 Oximetry 12/17/19 12/17/19 12/17/19 13:23 13:30 13:33 Temperature Pulse Rate 89 89 81 Pulse Rate [ From Monitor] Respiratory 24 Rate Blood Pressure 127/64 127/64 127/63 O2 Sat by Pulse Oximetry 12/17/19 12/17/19 12/17/19 13:40 13:50 14:00 Temperature Pulse Rate 83 85 85 Pulse Rate [ From Monitor] Respiratory 22 18 21 Rate Blood Pressure 127/63 127/63 129/59 O2 Sat by Pulse 91 97 100 Oximetry 12/17/19 12/17/19 12/17/19 14:10 14:20 14:30 Temperature Pulse Rate 93 H 88 89 Pulse Rate [ From Monitor] Respiratory 22 26 H 21 Rate Blood Pressure 129/59 129/59 123/62 O2 Sat by Pulse 99 100 90 Oximetry 12/17/19 12/17/19 12/17/19 14:40 14:50 15:00 Temperature Pulse Rate 84 85 88 Pulse Rate [ From Monitor] Respiratory 22 23 25 H Rate Blood Pressure 123/62 123/62 128/59 O2 Sat by Pulse Oximetry 12/17/19 12/17/19 12/17/19 15:10 15:20 15:30 Temperature Pulse Rate 94 H 94 H 86 Pulse Rate [ From Monitor] Respiratory 23 23 25 H Rate Blood Pressure 128/59 128/59 120/60 O2 Sat by Pulse Oximetry 12/17/19 12/17/19 12/17/19 15:40 15:50 16:00 Temperature Pulse Rate 91 H 88 91 H Pulse Rate [ 83 From Monitor] Respiratory 25 H 26 H 29 H Rate Blood Pressure 120/60 120/60 132/65 O2 Sat by Pulse 99 Oximetry 12/17/19 12/17/19 12/17/19 16:10 16:20 16:30 Temperature Pulse Rate 96 H 96 H 105 H Pulse Rate [ From Monitor] Respiratory 22 21 22 Rate Blood Pressure 132/65 132/65 132/65 O2 Sat by Pulse Oximetry 12/17/19 12/17/19 12/17/19 16:40 16:50 17:00 Temperature Pulse Rate 96 H 96 H 83 Pulse Rate [ From Monitor] Respiratory 24 25 H 22 Rate Blood Pressure 143/62 143/62 131/56 O2 Sat by Pulse Oximetry 12/17/19 17:16 Temperature Pulse Rate 93 H Pulse Rate [ From Monitor] Respiratory Rate Blood Pressure 131/56 O2 Sat by Pulse Oximetry - Labs CBC & Chem 7: 12/19/19 07:02 12/19/19 07:02 Labs: Abnormal lab results 12/16/19 12/16/19 12/17/19 Range/Units 17:45 22:40 04:47 WBC 23.7 H (4.5-11.0) K/mm3 Hgb 9.3 L (11.8-15.2) gm/dl Hct 28.6 L D (35.5-45.6) % MCV 76 L (84-94) fl MCH 25 L (28-32) pg RDW 17.9 H (13.2-15.2) % Seg Neuts % (Manual) 79.0 H (40.0-70.0) % Lymphocytes % (Manual) 7.0 L (13.4-35.0) % Eosinophils % (Manual) 6.0 H (0.0-4.3) % Seg Neutrophils # Man 18.7 H (1.8-7.7) K/mm3 Monocytes # (Manual) 1.4 H (0.0-0.8) K/mm3 Eosinophils # (Manual) 1.4 H (0.0-0.4) K/mm3 PT (12.2-14.9) Sec. INR (0.87-1.13) Sodium (137-145) mmol/L Chloride (98-107) mmol/L Carbon Dioxide (22-30) mmol/L BUN (9-20) mg/dL Creatinine (0.8-1.3) mg/dL POC Glucose 138 H 120 H (70-105) 12/17/19 12/17/19 Range/Units 04:47 04:47 WBC (4.5-11.0) K/mm3 Hgb (11.8-15.2) gm/dl Hct (35.5-45.6) % MCV (84-94) fl MCH (28-32) pg RDW (13.2-15.2) % Seg Neuts % (Manual) (40.0-70.0) % Lymphocytes % (Manual) (13.4-35.0) % Eosinophils % (Manual) (0.0-4.3) % Seg Neutrophils # Man (1.8-7.7) K/mm3 Monocytes # (Manual) (0.0-0.8) K/mm3 Eosinophils # (Manual) (0.0-0.4) K/mm3 PT 15.7 H (12.2-14.9) Sec. INR 1.23 H (0.87-1.13) Sodium 148 H D (137-145) mmol/L Chloride 114.6 H (98-107) mmol/L Carbon Dioxide 16 L (22-30) mmol/L BUN 25 H (9-20) mg/dL Creatinine 1.5 H (0.8-1.3) mg/dL POC Glucose (70-105) HEART Score - HEART Score Troponin: Troponin T 0.012 ng/mL (0.00-0.029) 12/15/19 20:04
[2019-12-18] MEDS: dilTIAZem 60 MG TAB PO SCH ×4 (00:56→18:33)
[2019-12-18] MEDS: HEPARIN 5,000 UNIT/1 ML VIAL SUB-Q SCH ×3 (05:57→23:09)
[2019-12-18 08:13] LABS: Basophils # (Auto) 0.1 K/mm3 (0.0-0.1); Basophils % (Auto) 0.7 % (0.0-1.8); Eosinophils # (Auto) 1.1 K/mm3 (0.0-0.4); Eosinophils % (Auto) 6.4 % (0.0-4.3); Hematocrit 30.2 % (35.5-45.6); Lymphocytes # (Auto) 1.7 K/mm3 (1.2-5.4); Lymphocytes % (Auto) 10.4 % (13.4-35.0); Mean Corpuscular HGB Conc 33 % (32-34); Mean Corpuscular Volume 76 fl (84-94); Monocytes # (Auto) 1.3 K/mm3 (0.0-0.8); Monocytes % (Auto) 7.6 % (0.0-7.3); Platelet Count 349 K/mm3 (140-440); Red Cell Distribution Width 17.8 % (13.2-15.2)
[2019-12-18 08:28] LABS: Calcium 9.1 mg/dL (8.4-10.2)
--- NOTE | 2019-12-18 09:39 | Progress Note ---
Assessment and Plan Rapid Atrial flutter, 2:1 has since reverted to sinus rhythm on diltiazem for suppression normal LVEF 55-605 by echo Altered mental status Sepsis Hypertension Diabetes BPH with chronic solorio Recommendations: Continue medical therapy with Cardizem for suppression of paroxysmal atrial flutter. Further treatment in the long-term including oral anticoagulation will depend on evidence of atrial flutter recurrence as well as patient's overall bleeding risk. Subjective Date of service: 12/18/19 Interval history: Patient does not speak [place]ic. He is alert and appears comfortable. Stable sinus rhythm on telemetry. Objective Vital Signs Temp Pulse Pulse Pulse Resp BP Pulse Ox 12/18/19 03:21 98.3 F 84 18 122/55 94 12/17/19 23:03 97.9 F 90 18 118/58 98 12/17/19 20:22 97.7 F 79 18 118/61 97 12/17/19 19:20 106 H 15 139/56 91 12/17/19 19:10 87 9 L 139/56 100 12/17/19 19:00 93 H 12 139/56 100 12/17/19 18:50 83 19 139/56 98 12/17/19 18:40 92 H 24 139/56 98 12/17/19 18:30 96 H 18 139/56 98 12/17/19 18:20 87 28 H 139/56 97 12/17/19 18:10 92 H 12 139/56 98 12/17/19 18:00 139/56 100 12/17/19 17:58 139/56 100 12/17/19 17:30 89 28 H 139/56 56 L 12/17/19 17:20 89 26 H 131/56 97 12/17/19 17:16 93 H 131/56 12/17/19 17:10 94 H 17 131/56 98 12/17/19 17:00 83 22 131/56 12/17/19 16:50 96 H 25 H 143/62 12/17/19 16:40 96 H 24 143/62 12/17/19 16:30 105 H 22 132/65 12/17/19 16:20 96 H 21 132/65 12/17/19 16:10 96 H 22 132/65 12/17/19 16:00 97.7 F 91 H 83 91 H 29 H 132/65 99 12/17/19 15:50 88 26 H 120/60 12/17/19 15:40 91 H 25 H 120/60 12/17/19 15:30 86 25 H 120/60 12/17/19 15:20 94 H 23 128/59 12/17/19 15:10 94 H 23 128/59 12/17/19 15:00 88 25 H 128/59 12/17/19 14:50 85 23 123/62 12/17/19 14:40 84 22 123/62 12/17/19 14:30 89 21 123/62 90 12/17/19 14:20 88 26 H 129/59 100 12/17/19 14:10 93 H 22 129/59 99 12/17/19 14:00 85 21 129/59 100 12/17/19 13:50 85 18 127/63 97 12/17/19 13:40 83 22 127/63 91 12/17/19 13:33 81 127/63 12/17/19 13:30 89 24 127/64 12/17/19 13:23 89 127/64 12/17/19 13:10 85 22 127/64 93 12/17/19 13:00 94 H 23 127/64 100 12/17/19 12:50 92 H 23 124/59 97 12/17/19 12:40 91 H 15 124/59 91 12/17/19 12:30 93 H 20 124/59 92 12/17/19 12:20 92 H 22 131/60 100 12/17/19 12:10 87 13 131/60 92 12/17/19 12:00 97.7 F 88 90 25 H 114/48 92 12/17/19 11:50 99 H 25 H 114/48 96 12/17/19 11:40 78 18 114/48 100 12/17/19 11:30 75 13 113/49 100 12/17/19 11:20 73 15 113/49 99 12/17/19 11:10 78 20 113/49 99 12/17/19 11:00 72 18 113/49 100 12/17/19 10:50 82 18 139/70 100 12/17/19 10:40 95 H 12 127/52 98 12/17/19 10:30 81 21 127/52 100 12/17/19 10:20 89 20 139/70 99 12/17/19 10:10 94 H 20 139/70 100 12/17/19 10:00 97 H 17 127/70 99 12/17/19 09:50 83 19 127/70 98 12/17/19 09:40 95 H 12 127/ 100 - Physical Examination General: No Apparent Distress HEENT: Positive: PERRL Neck: Positive: trachea midline Cardiac: Positive: Reg Rate and Rhythm Lungs: Positive: Decreased Breath Sounds Neuro: Positive: Grossly Intact Extremities: Absent: edema - Labs and Meds CBC 12/18/19 Range/Units 07:16 WBC 16.6 H (4.5-11.0) K/mm3 RBC 4.00 (3.65-5.03) M/mm3 Hgb 10.0 L (11.8-15.2) gm/dl Hct 30.2 L (35.5-45.6) % Plt Count 349 (140-440) K/mm3 Lymph # (Auto) 1.7 (1.2-5.4) K/mm3 Brule # (Auto) 1.3 H (0.0-0.8) K/mm3 Eos # (Auto) 1.1 H (0.0-0.4) K/mm3 Baso # (Auto) 0.1 (0.0-0.1) K/mm3 Comprehensive Metabolic Panel 12/18/19 Range/Units 07:16 Sodium 144 (137-145) mmol/L Potassium 3.3 L (3.6-5.0) mmol/L Chloride 108.5 H (98-107) mmol/L Carbon Dioxide 17 L (22-30) mmol/L BUN 13 (9-20) mg/dL Creatinine 1.2 (0.8-1.3) mg/dL Glucose 91 (75-100) mg/dL Calcium 9.1 (8.4-10.2) mg/dL
[2019-12-18] MEDS ORDERED: POTASSIUM CHLORIDE ER 20 MEQ TAB PO ONE (10:00)
[2019-12-18] MEDS: INSULIN LISPRO 100 UNIT/ML VIAL 3 mL SUB-Q SCH ×3 (10:09→23:16)
[2019-12-18] MEDS: CEFEPIME/NS 1 GM/100 ML 1 GM/100 ML BAG IV SCH ×3 (10:10→23:29)
--- NOTE | 2019-12-18 10:56 | Progress Note ---
Assessment and Plan Cultures: 12/15/2019 blood culture: 1/4 GPC 12/15/2019 urine culture: mixed zaria A/P: 69-year-old male with dementia, BPH, diabetes mellitus was admitted to the hospital after he pulled out his Solorio catheter: #Sepsis, likely secondary to urinary tract infection: Patient pulled out his Solorio catheter at home. UA with pyuria. #GPC bacteremia: 03/23 bottles. ?contaminant #WENDY versus CKD: creatinine improving. Dose abx accordingly #Acute encephalopathy Recs: continue IV Cefepime, D3 Follow up GPC identification on blood culture, continue IV Vancomycin for now Caro Marquez MD, FACP [facility], [place], [facility] ([facility]) C: [phone] O: [phone] F: [phone] Subjective Date of service: 12/18/19 Interval history: Afebrile today. Still a little confused, trying to get out of bed. Solorio present, with some blood. Objective - Exam Narrative Exam: Physical Exam: Constitutional: Alert. No acute distress Head, Ears, Nose: Normocephalic, atraumatic. External ears, nose normal Eyes: Conjunctivae/corneas clear. No icterus. No ptosis. Neck: Supple, no meningeal signs Cardiovascular: S1, S2 normal. Respiratory: Good air entry, clear to auscultation bilaterally GI: Soft, non-tender; bowel sounds normal. No peritoneal signs : solorio + Musculoskeletal: No pedal edema, no cyanosis. Skin: No rash or abscess Hem/Lymphatic: No palpable cervical or supraclavicular nodes. No lymphangitis Psych: no agitation Neurological: Awake, alert, but confused - Constitutional Vitals: Vital Signs Temp Pulse Resp BP Pulse Ox 98.3 F 84 18 122/55 94 12/18/19 03:21 12/18/19 03:21 12/18/19 03:21 12/18/19 03:21 12/18/19 03:21 Temperature -Last 24 Hours Temperature 98.3 F Temperature 97.9 F Temperature 97.7 F Temperature 97.7 F Temperature 97.7 F - Labs CBC & Chem 7: 12/18/19 07:16 12/18/19 07:16 Labs: Abnormal lab results 12/17/19 12/17/19 12/18/19 Range/Units 12:13 20:49 07:16 WBC 16.6 H (4.5-11.0) K/mm3 Hgb 10.0 L (11.8-15.2) gm/dl Hct 30.2 L (35.5-45.6) % MCV 76 L (84-94) fl MCH 25 L (28-32) pg RDW 17.8 H (13.2-15.2) % Lymph % (Auto) 10.4 L (13.4-35.0) % [place] % (Auto) 7.6 H (0.0-7.3) % Eos % (Auto) 6.4 H (0.0-4.3) % [place] # (Auto) 1.3 H (0.0-0.8) K/mm3 Eos # (Auto) 1.1 H (0.0-0.4) K/mm3 Seg Neutrophils % 74.9 H (40.0-70.0) % Seg Neutrophils # 12.5 H (1.8-7.7) K/mm3 Potassium (3.6-5.0) mmol/L Chloride (98-107) mmol/L Carbon Dioxide (22-30) mmol/L POC Glucose 122 H 122 H (70-105) 12/18/19 Range/Units 07:16 WBC (4.5-11.0) K/mm3 Hgb (11.8-15.2) gm/dl Hct (35.5-45.6) % MCV (84-94) fl MCH (28-32) pg RDW (13.2-15.2) % Lymph % (Auto) (13.4-35.0) % [place] % (Auto) (0.0-7.3) % Eos % (Auto) (0.0-4.3) % [place] # (Auto) (0.0-0.8) K/mm3 Eos # (Auto) (0.0-0.4) K/mm3 Seg Neutrophils % (40.0-70.0) % Seg Neutrophils # (1.8-7.7) K/mm3 Potassium 3.3 L (3.6-5.0) mmol/L Chloride 108.5 H (98-107) mmol/L Carbon Dioxide 17 L (22-30) mmol/L POC Glucose (70-105)
--- NOTE | 2019-12-18 15:23 | Progress Note ---
Assessment and Plan --Urinary tract infection Patient placed on empiric IV antibiotics. We await urine culture result. -- Urinary retention due to benign prostatic hyperplasia Patient has had Nielson catheter replaced. -- Sepsis Patient is continued on empiric IV antibiotics and IV fluid. Consulted to infectious disease for further evaluation and recommendation. -- Diabetes type 2 We will monitor Accu-Cheks. -- WENDY (acute kidney injury) Patient placed on IV fluid and will continue to monitor BUN and creatinine. -- Cardiac arrhythmia Patient went into SVT and later into A. fib. He is s/p Cardizem drip. consulted cardiology -will follow recommendation for AC --Dementia, cont supportive care -- DVT prophylaxis Patient placed on subcutaneous heparin. -- Full code status Brief History; 69-year-old male with known history of dementia, BPH and diabetes mellitus seen in the emergency room for evaluation of confusion and dislodgment of an indwelling Nielson catheter. Work-up in the emergency room reveals a urinary tract infection with accompanying sepsis. He was started on IV fluid and empiric IV antibiotics. However during the course of his stay in the emergency room patient was said to have gone into SVT and also what appeared to be atrial fibrillation. He was initially given IV adenosine without any significant improvement in his rate and patient subsequently placed on Cardizem drip. He became hypotensive and he continued to have aggressive IV hydration. Patient admitted into the intensive care unit for close monitoring. 12/16: Patient off Cardizem drip, started on p.o. Cardizem, heart rate stable, r emains confused with restrain. Transfer to telemetry. 12/17: HR stable, wait for cardiac clearance for d/c. cont iv abx for sepsis. if clinically stable plan for d/c soon Subjective Date of service: 12/18/19 Interval history: Patient seen and examined discussed with RN at bedside patient denies any chest pain tolerating diet HR appears stable Objective - Exam Narrative Exam: General appearance: Present: no acute distress, well-nourished - EENT Eyes: Present: PERRL, EOM intact ENT: hearing intact, clear oral mucosa, dentition normal - Neck Neck: Present: supple, normal ROM - Respiratory Respiratory effort: normal Respiratory: bilateral: CTA - Cardiovascular Rhythm: regular Heart Sounds: Present: S1 & S2. Absent: gallop, systolic murmur, diastolic murmur, rub - Extremities Extremities: no ischemia, pulses intact, pulses symmetrical, No edema, Full ROM Peripheral Pulses: within normal limits - Abdominal General gastrointestinal: Present: soft, non-tender, non-distended, normal bowel sounds. Absent: mass - Integumentary Integumentary: Present: clear, warm, dry - Musculoskeletal Musculoskeletal: strength equal bilaterally - Neurologic Neurologic: CNII-XII intact, no focal deficits, moves all extremities - Labs CBC & Chem 7: 12/19/19 07:02 12/19/19 07:02 Labs: Abnormal lab results 12/17/19 12/17/19 12/18/19 Range/Units 12:13 20:49 07:16 WBC 16.6 H (4.5-11.0) K/mm3 Hgb 10.0 L (11.8-15.2) gm/dl Hct 30.2 L (35.5-45.6) % MCV 76 L (84-94) fl MCH 25 L (28-32) pg RDW 17.8 H (13.2-15.2) % Lymph % (Auto) 10.4 L (13.4-35.0) % [place] % (Auto) 7.6 H (0.0-7.3) % Eos % (Auto) 6.4 H (0.0-4.3) % [place] # (Auto) 1.3 H (0.0-0.8) K/mm3 Eos # (Auto) 1.1 H (0.0-0.4) K/mm3 Seg Neutrophils % 74.9 H (40.0-70.0) % Seg Neutrophils # 12.5 H (1.8-7.7) K/mm3 Potassium (3.6-5.0) mmol/L Chloride (98-107) mmol/L Carbon Dioxide (22-30) mmol/L POC Glucose 122 H 122 H (70-105) 12/18/19 12/18/19 Range/Units 07:16 12:55 WBC (4.5-11.0) K/mm3 Hgb (11.8-15.2) gm/dl Hct (35.5-45.6) % MCV (84-94) fl MCH (28-32) pg RDW (13.2-15.2) % Lymph % (Auto) (13.4-35.0) % [place] % (Auto) (0.0-7.3) % Eos % (Auto) (0.0-4.3) % [place] # (Auto) (0.0-0.8) K/mm3 Eos # (Auto) (0.0-0.4) K/mm3 Seg Neutrophils % (40.0-70.0) % Seg Neutrophils # (1.8-7.7) K/mm3 Potassium 3.3 L (3.6-5.0) mmol/L Chloride 108.5 H (98-107) mmol/L Carbon Dioxide 17 L (22-30) mmol/L POC Glucose 183 H (70-105) HEART Score - HEART Score Troponin: Troponin T 0.012 ng/mL (0.00-0.029) 12/15/19 20:04
--- NOTE | 2019-12-18 20:28 | Event Note ---
Notified by nursing staff that patient pulled his Nielson catheter. Patient seen and evaluated by me. I presented to the bedside to evaluate patient. Patient was found to have discontinued his Nielson catheter however there was no blood in the meatus. There was no active bleeding and no clot formation. We will continue conservative management at this time. Patient has soiled diaper which is consistent with passage of urine. Will conduct bladder scan and evaluate postvoid residual. Consider urology consult in a.m. As per primary team.
[2019-12-19] MEDS: dilTIAZem 60 MG TAB PO SCH ×5 (01:42→23:51)
[2019-12-19] MEDS: HEPARIN 5,000 UNIT/1 ML VIAL SUB-Q SCH ×3 (06:03→21:38)
[2019-12-19 07:15] LABS: Basophils # (Auto) 0.1 K/mm3 (0.0-0.1); Basophils % (Auto) 0.6 % (0.0-1.8); Eosinophils # (Auto) 0.9 K/mm3 (0.0-0.4); Eosinophils % (Auto) 9.1 % (0.0-4.3); Hematocrit 27.6 % (35.5-45.6); Hemoglobin 9.4 gm/dl (11.8-15.2); Lymphocytes % (Auto) 20.8 % (13.4-35.0); Mean Corpuscular HGB Conc 34 % (32-34); Mean Corpuscular Volume 74 fl (84-94); Monocytes # (Auto) 0.9 K/mm3 (0.0-0.8); Monocytes % (Auto) 9.3 % (0.0-7.3); Platelet Count 374 K/mm3 (140-440); Red Blood Count 3.72 M/mm3 (3.65-5.03); Red Cell Distribution Width 17.4 % (13.2-15.2)
[2019-12-19 07:36] LABS: BUN/Creatinine Ratio 8; Blood Urea Nitrogen 9 mg/dL (9-20); Calcium 9.1 mg/dL (8.4-10.2); Hemolysis Index 4
[2019-12-19] MEDS: INSULIN LISPRO 100 UNIT/ML VIAL 3 mL SUB-Q SCH ×4 (08:10→22:09)
[2019-12-19] MEDS: CEFEPIME/NS 1 GM/100 ML 1 GM/100 ML BAG IV SCH ×3 (08:25→22:05)
[2019-12-19] MEDS: VANCOMYCIN/NS 1 GM/250 ML 1 GM/250 ML BAG IV SCH ×2 (09:55)
[2019-12-19] MEDS ORDERED: POTASSIUM CHLORIDE ER 20 MEQ TAB PO ONE (11:00)
--- NOTE | 2019-12-19 11:10 | Progress Note ---
Assessment and Plan Rapid Atrial flutter, 2:1 has since reverted to sinus rhythm on diltiazem for suppression normal LVEF 55-605 by echo Altered mental status Sepsis Hypertension Diabetes BPH with chronic solorio Recommendations: Continue medical therapy with Cardizem for suppression of paroxysmal atrial flutter. Due to multiple co-morbidities and elevated risk of bleeding, patient is considered not a candidate for anticoagulation. Subjective Date of service: 12/19/19 Interval history: Patient does not speak [place]. He is alert and appears comfortable. Sitter is at the bedside. Stable sinus rhythm on telemetry. Objective Vital Signs Temp Pulse Resp BP BP Pulse Ox 12/19/19 08:41 97.8 F 84 20 143/66 96 12/19/19 06:25 89 160/72 12/19/19 04:39 98.2 F 89 18 160/72 98 12/19/19 01:42 98.0 F 73 20 140/69 98 12/18/19 20:35 98.0 F 99 H 20 160/71 96 12/18/19 18:33 105 H 139/64 12/18/19 17:50 105 H 139/64 12/18/19 15:34 105 H 28 H 139/64 96 - Physical Examination General: No Apparent Distress HEENT: Positive: PERRL Neck: Positive: trachea midline Cardiac: Positive: Reg Rate and Rhythm Neuro: Positive: Grossly Intact Extremities: Absent: edema - Labs and Meds CBC 12/19/19 Range/Units 07:02 WBC 9.8 (4.5-11.0) K/mm3 RBC 3.72 (3.65-5.03) M/mm3 Hgb 9.4 L (11.8-15.2) gm/dl Hct 27.6 L (35.5-45.6) % Plt Count 374 (140-440) K/mm3 Lymph # (Auto) 2.0 (1.2-5.4) K/mm3 [place] # (Auto) 0.9 H (0.0-0.8) K/mm3 Eos # (Auto) 0.9 H (0.0-0.4) K/mm3 Baso # (Auto) 0.1 (0.0-0.1) K/mm3 Comprehensive Metabolic Panel 12/19/19 Range/Units 07:02 Sodium 144 (137-145) mmol/L Potassium 3.0 L (3.6-5.0) mmol/L Chloride 107.6 H (98-107) mmol/L Carbon Dioxide 26 D (22-30) mmol/L BUN 9 (9-20) mg/dL Creatinine 1.1 (0.8-1.3) mg/dL Glucose 120 H (75-100) mg/dL Calcium 9.1 (8.4-10.2) mg/dL
[2019-12-19] MEDS ORDERED: MAGNESIUM SULFATE 2 GM/50 ML BAG IV ONE (12:00)
[2019-12-19] MEDS: ASPIRIN 81 MG TAB CHEW PO SCH (12:12)
[2019-12-19] MEDS: SODIUM CHLORIDE 0.45% 1000 ML 1,000 ML IV SCH (12:33)
--- NOTE | 2019-12-19 12:39 | Progress Note ---
Assessment and Plan Cultures: 12/15/2019 blood culture: 1/4 GPC 12/15/2019 urine culture: mixed zaria A/P: 69-year-old male with dementia, BPH, diabetes mellitus was admitted to the hospital after he pulled out his Nielson catheter: #Sepsis, likely secondary to urinary tract infection: Patient pulled out his Nielson catheter at home. UA with pyuria. #GPC bacteremia: 03/23 bottles. ?contaminant v/s real. #WENDY versus CKD: improved. #Acute encephalopathy Recs: continue IV Cefepime, D4 Still awaiting GPC identification on blood culture, continue IV Vancomycin Caro Marquez MD, FACP [facility] ([facility]) C: [phone] O: [phone] F: [phone] Subjective Date of service: 12/19/19 Interval history: Afebrile. Apparently pulled his Nielson again. Awake. Objective - Exam Narrative Exam: Physical Exam: Constitutional: Alert. No acute distress Head, Ears, Nose: Normocephalic, atraumatic. External ears, nose normal Eyes: Conjunctivae/corneas clear. No icterus. No ptosis. Neck: Supple, no meningeal signs Cardiovascular: S1, S2 normal. Respiratory: Good air entry, clear to auscultation bilaterally GI: Soft, non-tender; bowel sounds normal. No peritoneal signs Musculoskeletal: No pedal edema, no cyanosis. Skin: No rash or abscess Hem/Lymphatic: No palpable cervical or supraclavicular nodes. No lymphangitis Psych: no agitation Neurological: Awake, alert, but confused - Constitutional Vitals: Vital Signs Temp Pulse Resp BP Pulse Ox 97.8 F 76 20 146/72 96 12/19/19 08:41 12/19/19 12:13 12/19/19 08:41 12/19/19 12:13 12/19/19 08:41 Temperature -Last 24 Hours Temperature 97.8 F Temperature 98.2 F Temperature 98.0 F Temperature 98.0 F - Labs CBC & Chem 7: 12/19/19 07:02 12/19/19 07:02 Labs: Abnormal lab results 12/18/19 12/18/19 12/19/19 Range/Units 12:55 21:57 07:02 Hgb 9.4 L (11.8-15.2) gm/dl Hct 27.6 L (35.5-45.6) % MCV 74 L (84-94) fl MCH 25 L (28-32) pg RDW 17.4 H (13.2-15.2) % [place] % (Auto) 9.3 H (0.0-7.3) % Eos % (Auto) 9.1 H (0.0-4.3) % [place] # (Auto) 0.9 H (0.0-0.8) K/mm3 Eos # (Auto) 0.9 H (0.0-0.4) K/mm3 Potassium (3.6-5.0) mmol/L Chloride (98-107) mmol/L Glucose (75-100) mg/dL POC Glucose 183 H 156 H (70-105) Magnesium (1.7-2.3) mg/dL 12/19/19 12/19/19 12/19/19 Range/Units 07:02 08:09 10:34 Hgb (11.8-15.2) gm/dl Hct (35.5-45.6) % MCV (84-94) fl MCH (28-32) pg RDW (13.2-15.2) % [place] % (Auto) (0.0-7.3) % Eos % (Auto) (0.0-4.3) % [place] # (Auto) (0.0-0.8) K/mm3 Eos # (Auto) (0.0-0.4) K/mm3 Potassium 3.0 L (3.6-5.0) mmol/L Chloride 107.6 H (98-107) mmol/L Glucose 120 H (75-100) mg/dL POC Glucose 111 H (70-105) Magnesium 1.50 L (1.7-2.3) mg/dL
--- NOTE | 2019-12-19 16:38 | Progress Note ---
Assessment and Plan --Urinary tract infection Patient placed on empiric IV antibiotics. We await urine culture result. -- Urinary retention due to benign prostatic hyperplasia Patient has had Nielson catheter replaced. -- Sepsis Patient is continued on empiric IV antibiotics and IV fluid. Consulted to infectious disease for further evaluation and recommendation. -- Diabetes type 2 We will monitor Accu-Cheks. -- WENDY (acute kidney injury) Patient placed on IV fluid and will continue to monitor BUN and creatinine. -- Cardiac arrhythmia Patient went into SVT and later into A. fib. He is s/p Cardizem drip. consulted cardiology -will follow recommendation for AC --Dementia, cont supportive care -- DVT prophylaxis Patient placed on subcutaneous heparin. -- Full code status Brief History; 69-year-old male with known history of dementia, BPH and diabetes mellitus seen in the emergency room for evaluation of confusion and dislodgment of an indwelling Nielson catheter. Work-up in the emergency room reveals a urinary tract infection with accompanying sepsis. He was started on IV fluid and empiric IV antibiotics. However during the course of his stay in the emergency room patient was said to have gone into SVT and also what appeared to be atrial fibrillation. He was initially given IV adenosine without any significant improvement in his rate and patient subsequently placed on Cardizem drip. He became hypotensive and he continued to have aggressive IV hydration. Patient admitted into the intensive care unit for close monitoring. 12/16: Patient off Cardizem drip, started on p.o. Cardizem, heart rate stable, r emains confused with restrain. Transfer to telemetry. 12/17: HR stable, wait for cardiac clearance for d/c. cont iv abx for sepsis. if clinically stable plan for d/c soon 12/18: patient need SNF. cont abx. afebrile, cont to monitor. Subjective Date of service: 12/19/19 Interval history: Patient seen and examined discussed with RN at bedside patient denies any chest pain tolerating diet HR appears stable Objective - Exam Narrative Exam: General appearance: Present: no acute distress, well-nourished - EENT Eyes: Present: PERRL, EOM intact ENT: hearing intact, clear oral mucosa, dentition normal - Neck Neck: Present: supple, normal ROM - Respiratory Respiratory effort: normal Respiratory: bilateral: CTA - Cardiovascular Rhythm: regular Heart Sounds: Present: S1 & S2. Absent: gallop, systolic murmur, diastolic murmur, rub - Extremities Extremities: no ischemia, pulses intact, pulses symmetrical, No edema, Full ROM Peripheral Pulses: within normal limits - Abdominal General gastrointestinal: Present: soft, non-tender, non-distended, normal bowel sounds. Absent: mass - Integumentary Integumentary: Present: clear, warm, dry - Musculoskeletal Musculoskeletal: strength equal bilaterally - Neurologic Neurologic: CNII-XII intact, no focal deficits, moves all extremities - Constitutional Vitals: Vital Signs - 12hr 12/19/19 12/19/19 12/19/19 04:39 06:25 08:41 Temperature 98.2 F 97.8 F Pulse Rate 89 89 84 Respiratory 18 20 Rate Blood Pressure 160/72 143/66 Blood Pressure 160/72 [Left] O2 Sat by Pulse 98 96 Oximetry 12/19/19 12/19/19 11:46 12:13 Temperature 97.9 F Pulse Rate 80 76 Respiratory 20 Rate Blood Pressure 146/72 146/72 Blood Pressure [Left] O2 Sat by Pulse 97 Oximetry - Labs CBC & Chem 7: 12/19/19 07:02 12/20/19 11:21 Labs: Abnormal lab results 12/18/19 12/19/19 12/19/19 Range/Units 21:57 07:02 07:02 Hgb 9.4 L (11.8-15.2) gm/dl Hct 27.6 L (35.5-45.6) % MCV 74 L (84-94) fl MCH 25 L (28-32) pg RDW 17.4 H (13.2-15.2) % [place] % (Auto) 9.3 H (0.0-7.3) % Eos % (Auto) 9.1 H (0.0-4.3) % [place] # (Auto) 0.9 H (0.0-0.8) K/mm3 Eos # (Auto) 0.9 H (0.0-0.4) K/mm3 Potassium 3.0 L (3.6-5.0) mmol/L Chloride 107.6 H (98-107) mmol/L Glucose 120 H (75-100) mg/dL POC Glucose 156 H (70-105) Magnesium (1.7-2.3) mg/dL 10/01/20 10/01/20 10/01/20 Range/Units 08:09 10:34 11:51 Hgb (11.8-15.2) gm/dl Hct (35.5-45.6) % MCV (84-94) fl MCH (28-32) pg RDW (13.2-15.2) % [place] % (Auto) (0.0-7.3) % Eos % (Auto) (0.0-4.3) % [place] # (Auto) (0.0-0.8) K/mm3 Eos # (Auto) (0.0-0.4) K/mm3 Potassium (3.6-5.0) mmol/L Chloride (98-107) mmol/L Glucose (75-100) mg/dL POC Glucose 111 H 162 H (70-105) Magnesium 1.50 L (1.7-2.3) mg/dL HEART Score - HEART Score Troponin: Troponin T 0.012 ng/mL (0.00-0.029) 12/15/19 20:04
[2019-12-20 01:55] LABS: BUN/Creatinine Ratio 8; Blood Urea Nitrogen 8 mg/dL (9-20); Calcium 8.8 mg/dL (8.4-10.2); Hemolysis Index 3
[2019-12-20] MEDS ORDERED: POTASSIUM CHLORIDE ER 20 MEQ TAB PO ONE (02:54)
[2019-12-20] MEDS: POTASSIUM CHLORIDE 10 MEQ 10 MEQ/100 ML BAG IV SCH ×5 (03:47→14:21)
[2019-12-20] MEDS: dilTIAZem 60 MG TAB PO SCH ×3 (05:17→18:54)
[2019-12-20] MEDS: HEPARIN 5,000 UNIT/1 ML VIAL SUB-Q SCH ×3 (05:18→22:33)
[2019-12-20] MEDS: CEFEPIME/NS 1 GM/100 ML 1 GM/100 ML BAG IV SCH ×3 (08:26→22:33)
[2019-12-20] MEDS: INSULIN LISPRO 100 UNIT/ML VIAL 3 mL SUB-Q SCH ×4 (08:28→22:31)
[2019-12-20] MEDS: VANCOMYCIN/NS 1 GM/250 ML 1 GM/250 ML BAG IV SCH (09:41)
[2019-12-20] MEDS: ASPIRIN 81 MG TAB CHEW PO SCH (09:42)
[2019-12-20] MEDS: POTASSIUM CHLORIDE ER 20 MEQ TAB PO SCH (09:46)
--- NOTE | 2019-12-20 10:28 | Progress Note ---
Assessment and Plan - Patient Problems (1) SVT (supraventricular tachycardia) Current Visit: Yes Status: Acute (2) Hypokalemia Current Visit: Yes Status: Acute (3) Urinary tract infection Current Visit: Yes Status: Acute Subjective Date of service: 12/20/19 Interval history: ALERT,,NONVERBAL Objective Vital Signs Temp Pulse Resp BP Pulse Ox 12/20/19 07:46 97.9 F 79 16 135/60 95 12/20/19 05:17 78 134/53 12/20/19 03:54 98.1 F 78 16 134/53 98 12/19/19 23:51 92 H 114/47 12/19/19 23:06 98.0 F 92 H 17 114/47 97 12/19/19 19:52 97.5 F L 82 17 134/65 98 12/19/19 18:34 80 147/69 12/19/19 16:43 98.3 F 80 20 147/69 97 12/19/19 12:13 76 146/72 12/19/19 11:46 97.9 F 80 20 146/72 97 - Physical Examination General: No Apparent Distress HEENT: Positive: PERRL Neck: Positive: trachea midline Cardiac: Positive: Reg Rate and Rhythm Lungs: Positive: clear to auscultation Neuro: Positive: Grossly Intact Abdomen: Positive: Unremarkable Extremities: Absent: edema - Labs and Meds Comprehensive Metabolic Panel 12/20/19 Range/Units 00:56 Sodium 141 (137-145) mmol/L Potassium 2.8 L* (3.6-5.0) mmol/L Chloride 105.1 (98-107) mmol/L Carbon Dioxide 23 (22-30) mmol/L BUN 8 L (9-20) mg/dL Creatinine 1.0 (0.8-1.3) mg/dL Glucose 109 H (75-100) mg/dL Calcium 8.8 (8.4-10.2) mg/dL
--- NOTE | 2019-12-20 13:16 | Progress Note ---
Assessment and Plan Cultures: 12/15/2019 blood culture: 1/4 Micrococcus 12/15/2019 urine culture: mixed zaria A/P: 69-year-old male with dementia, BPH, diabetes mellitus was admitted to the hospital after he pulled out his Nielson catheter: #Sepsis, likely secondary to urinary tract infection: Patient pulled out his Nielson catheter at home. UA with pyuria. #GPC bacteremia: 1/4 bottles with Micrococcus, contaminant, no further treatment or work up needed. #WENDY versus CKD: improved. #Acute encephalopathy: improving. Recs: vancomycin discontinued last day of Cefepime today Caro Marquez MD, FACP [facility] ([facility] C: [phone] O: [phone] F: [phone] Subjective Date of service: 12/20/19 Interval history: Afebrile. Denies any complaints. Sitting up in bed, eating his lunch. Objective - Exam Narrative Exam: Physical Exam: Constitutional: Alert. No acute distress Head, Ears, Nose: Normocephalic, atraumatic. External ears, nose normal Eyes: Conjunctivae/corneas clear. No icterus. No ptosis. Neck: Supple, no meningeal signs Cardiovascular: S1, S2 normal. Respiratory: Good air entry, clear to auscultation bilaterally GI: Soft, non-tender; bowel sounds normal. No peritoneal signs Musculoskeletal: No pedal edema, no cyanosis. Skin: No rash or abscess Hem/Lymphatic: No palpable cervical or supraclavicular nodes. No lymphangitis Psych: no agitation Neurological: Awake, alert, but confused - Constitutional Vitals: Vital Signs Temp Pulse Resp BP Pulse Ox 98.4 F 89 18 141/75 97 12/20/19 11:26 12/20/19 11:26 12/20/19 11:26 12/20/19 11:26 12/20/19 11:26 Temperature -Last 24 Hours Temperature 98.4 F Temperature 97.9 F Temperature 98.1 F Temperature 98.0 F Temperature 97.5 F Temperature 98.3 F - Labs CBC & Chem 7: 12/19/19 07:02 12/20/19 11:21 Labs: Abnormal lab results 12/19/19 12/19/19 12/20/19 Range/Units 18:04 22:02 00:56 Potassium 2.8 L* (3.6-5.0) mmol/L BUN 8 L (9-20) mg/dL Glucose 109 H (75-100) mg/dL POC Glucose 216 H 192 H (70-105) 12/20/19 Range/Units 11:40 Potassium (3.6-5.0) mmol/L BUN (9-20) mg/dL Glucose (75-100) mg/dL POC Glucose 185 H (70-105)
--- NOTE | 2019-12-20 15:12 | Progress Note ---
Assessment and Plan --Urinary tract infection Patient placed on empiric IV antibiotics. We await urine culture result. -- Urinary retention due to benign prostatic hyperplasia Patient has had Nielson catheter replaced. -- Sepsis Patient is continued on empiric IV antibiotics and IV fluid. Consulted to infectious disease for further evaluation and recommendation. -- Diabetes type 2 We will monitor Accu-Cheks. -- WENDY (acute kidney injury) Patient placed on IV fluid and will continue to monitor BUN and creatinine. -- Cardiac arrhythmia Patient went into SVT and later into A. fib. He is s/p Cardizem drip. consulted cardiology -will follow recommendation for AC --Dementia, cont supportive care -- DVT prophylaxis Patient placed on subcutaneous heparin. -- Full code status Brief History; 69-year-old male with known history of dementia, BPH and diabetes mellitus seen in the emergency room for evaluation of confusion and dislodgment of an indwelling Nielson catheter. Work-up in the emergency room reveals a urinary tract infection with accompanying sepsis. He was started on IV fluid and empiric IV antibiotics. However during the course of his stay in the emergency room patient was said to have gone into SVT and also what appeared to be atrial fibrillation. He was initially given IV adenosine without any significant improvement in his rate and patient subsequently placed on Cardizem drip. He became hypotensive and he continued to have aggressive IV hydration. Patient admitted into the intensive care unit for close monitoring. 12/16: Patient off Cardizem drip, started on p.o. Cardizem, heart rate stable, r emains confused with restrain. Transfer to telemetry. 12/17: HR stable, wait for cardiac clearance for d/c. cont iv abx for sepsis. if clinically stable plan for d/c soon 12/18: patient need SNF. cont abx. afebrile, cont to monitor. 12/19: vancomycin discontinued. last day of Cefepime today. pending SNF Subjective Date of service: 12/20/19 Interval history: Patient seen and examined discussed with RN at bedside patient denies any chest pain tolerating diet HR appears stable Objective - Exam Narrative Exam: General appearance: Present: no acute distress, well-nourished - EENT Eyes: Present: PERRL, EOM intact ENT: hearing intact, clear oral mucosa, dentition normal - Neck Neck: Present: supple, normal ROM - Respiratory Respiratory effort: normal Respiratory: bilateral: CTA - Cardiovascular Rhythm: regular Heart Sounds: Present: S1 & S2. Absent: gallop, systolic murmur, diastolic murmur, rub - Extremities Extremities: no ischemia, pulses intact, pulses symmetrical, No edema, Full ROM Peripheral Pulses: within normal limits - Abdominal General gastrointestinal: Present: soft, non-tender, non-distended, normal bowel sounds. Absent: mass - Integumentary Integumentary: Present: clear, warm, dry - Musculoskeletal Musculoskeletal: strength equal bilaterally - Neurologic Neurologic: CNII-XII intact, no focal deficits, moves all extremities - Constitutional Vitals: Vital Signs - 12hr 12/20/19 12/20/19 12/20/19 03:54 05:17 07:46 Temperature 98.1 F 97.9 F Pulse Rate 78 78 79 Respiratory 16 16 Rate Blood Pressure 134/53 134/53 135/60 O2 Sat by Pulse 98 95 Oximetry 12/20/19 12/20/19 11:26 15:00 Temperature 98.4 F Pulse Rate 89 85 Respiratory 18 Rate Blood Pressure 141/75 141/75 O2 Sat by Pulse 97 Oximetry - Labs CBC & Chem 7: 12/19/19 07:02 12/21/19 06:53 Labs: Abnormal lab results 12/19/19 12/19/19 12/20/19 Range/Units 18:04 22:02 00:56 Potassium 2.8 L* (3.6-5.0) mmol/L BUN 8 L (9-20) mg/dL Glucose 109 H (75-100) mg/dL POC Glucose 216 H 192 H (70-105) 12/20/19 Range/Units 11:40 Potassium (3.6-5.0) mmol/L BUN (9-20) mg/dL Glucose (75-100) mg/dL POC Glucose 185 H (70-105) HEART Score - HEART Score Troponin: Troponin T 0.012 ng/mL (0.00-0.029) 12/15/19 20:04
[2019-12-21] MEDS: dilTIAZem 60 MG TAB PO SCH ×5 (00:18→23:54)
[2019-12-21] MEDS: HEPARIN 5,000 UNIT/1 ML VIAL SUB-Q SCH ×3 (06:01→21:56)
[2019-12-21 07:53] LABS: BUN/Creatinine Ratio 8; Blood Urea Nitrogen 9 mg/dL (9-20); Calcium 9.3 mg/dL (8.4-10.2); Hemolysis Index 0
[2019-12-21] MEDS: INSULIN LISPRO 100 UNIT/ML VIAL 3 mL SUB-Q SCH ×4 (09:00→21:56)
[2019-12-21] MEDS: POTASSIUM CHLORIDE ER 20 MEQ TAB PO SCH (09:12)
[2019-12-21] MEDS: ASPIRIN 81 MG TAB CHEW PO SCH (09:13)
--- NOTE | 2019-12-21 15:20 | Progress Note ---
Assessment and Plan Cultures: 12/15/2019 blood culture: 1/4 Micrococcus 12/15/2019 urine culture: mixed zaria A/P: 69-year-old male with dementia, BPH, diabetes mellitus was admitted to the hospital after he pulled out his Nielson catheter: #Sepsis, likely secondary to urinary tract infection: Patient pulled out his Nielson catheter at home. UA with pyuria. Improved. Completed abx. #GPC bacteremia: 1/4 bottles with Micrococcus, contaminant, no further treatment or work up needed. #WENDY versus CKD: improved. #Acute encephalopathy: improving. Recs: abx completed ID will sign off. Please call with questions. Caro Marquez MD, FACP [facility] C: [phone] O: [phone] F: [phone] Subjective Date of service: 12/21/19 Interval history: Afebrile. Denies any complaints. Lying in bed. Objective - Exam Narrative Exam: Physical Exam: Constitutional: Alert. No acute distress Head, Ears, Nose: Normocephalic, atraumatic. External ears, nose normal Eyes: Conjunctivae/corneas clear. No icterus. No ptosis. Neck: Supple, no meningeal signs Cardiovascular: S1, S2 normal. Respiratory: Good air entry, clear to auscultation bilaterally GI: Soft, non-tender; bowel sounds normal. No peritoneal signs Musculoskeletal: No pedal edema, no cyanosis. Skin: No rash or abscess Hem/Lymphatic: No palpable cervical or supraclavicular nodes. No lymphangitis Psych: no agitation Neurological: Awake, alert, but confused - Constitutional Vitals: Vital Signs Temp Pulse Resp BP Pulse Ox 98.5 F 64 18 140/62 98 12/21/19 12:11 12/21/19 12:21 12/21/19 12:11 12/21/19 12:21 12/21/19 12:11 Temperature -Last 24 Hours Temperature 98.5 F Temperature 97.7 F Temperature 97.8 F Temperature 98.5 F Temperature 98.9 F - Labs CBC & Chem 7: 12/19/19 07:02 12/21/19 06:53 Labs: Abnormal lab results 12/20/19 12/21/19 12/21/19 Range/Units 21:49 06:53 08:45 Potassium 3.4 L (3.6-5.0) mmol/L Glucose 112 H (75-100) mg/dL POC Glucose 159 H 188 H (70-105)
--- NOTE | 2019-12-21 17:10 | Progress Note ---
Assessment and Plan Paroxysmal atrial flutter and atrial tachycardia has since reverted to sinus rhythm on diltiazem for suppression normal LVEF 55-605 by echo Altered mental status/DEMENTIA Sepsis/UTI Hypertension Diabetes BPH with chronic solorio HYPO-K+ ANEMIA Recommendations: Continue cardizem Due to multiple co-morbidities and elevated risk of bleeding, patient is considered not a candidate for anticoagulation. Subjective Date of service: 12/21/19 Interval history: No acute events Objective Vital Signs Temp Pulse Pulse Resp BP Pulse Ox 12/21/19 15:52 98.6 F 75 18 145/63 100 12/21/19 12:21 64 140/62 12/21/19 12:11 98.5 F 85 18 140/62 98 12/21/19 10:00 82 18 98 12/21/19 07:47 97.7 F 82 18 136/54 97 12/21/19 06:01 81 138/51 12/21/19 04:39 97.8 F 81 18 138/51 98 12/21/19 00:18 89 133/38 12/20/19 22:46 98.5 F 89 18 133/38 99 12/20/19 22:30 94 H 18 98 12/20/19 20:28 108 H 12/20/19 18:54 87 139/55 - Physical Examination General: No Apparent Distress HEENT: Positive: PERRL Neck: Positive: trachea midline Neuro: Positive: Grossly Intact Abdomen: Positive: Unremarkable Extremities: Absent: edema - Labs and Meds Comprehensive Metabolic Panel 12/21/19 Range/Units 06:53 Sodium 143 (137-145) mmol/L Potassium 3.4 L (3.6-5.0) mmol/L Chloride 105.6 (98-107) mmol/L Carbon Dioxide 28 (22-30) mmol/L BUN 9 (9-20) mg/dL Creatinine 1.1 (0.8-1.3) mg/dL Glucose 112 H (75-100) mg/dL Calcium 9.3 (8.4-10.2) mg/dL
--- NOTE | 2019-12-21 18:52 | Progress Note ---
Assessment and Plan --Urinary tract infection Patient placed on empiric IV antibiotics. -- Urinary retention due to benign prostatic hyperplasia Patient has had Nielson catheter replaced. -- Sepsis s/p empiric IV antibiotics Consulted to infectious disease for further evaluation and recommendation. -- Diabetes type 2 We will monitor Accu-Cheks. -- WENDY (acute kidney injury) Patient placed on IV fluid and will continue to monitor BUN and creatinine. -- Cardiac arrhythmia Patient went into SVT and later into A. fib. He is s/p Cardizem drip. consulted cardiology -will follow recommendation for AC --Dementia, cont supportive care -- DVT prophylaxis Patient placed on subcutaneous heparin. -- Full code status Brief History; 69-year-old male with known history of dementia, BPH and diabetes mellitus seen in the emergency room for evaluation of confusion and dislodgment of an indwelling Nielson catheter. Work-up in the emergency room reveals a urinary tract infection with accompanying sepsis. He was started on IV fluid and empiric IV antibiotics. However during the course of his stay in the emergency room patient was said to have gone into SVT and also what appeared to be atrial fibrillation. He was initially given IV adenosine without any significant improvement in his rate and patient subsequently placed on Cardizem drip. He became hypotensive and he continued to have aggressive IV hydration. Patient admitted into the intensive care unit for close monitoring. 12/16: Patient off Cardizem drip, started on p.o. Cardizem, heart rate stable, remains confused with restrain. Transfer to telemetry. 12/17: HR stable, wait for cardiac clearance for d/c. cont iv abx for sepsis. if clinically stable plan for d/c soon 12/18: patient need SNF. cont abx. afebrile, cont to monitor. 12/19: vancomycin discontinued. last day of Cefepime today. pending SNF 12/20; patient clinically stable. Pending SNF. possible d/c on Monday Subjective Date of service: 12/21/19 Interval history: Patient seen and examined discussed with RN at bedside patient denies any chest pain tolerating diet HR appears stable Objective - Exam Narrative Exam: General appearance: Present: no acute distress, well-nourished - EENT Eyes: Present: PERRL, EOM intact ENT: hearing intact, clear oral mucosa, dentition normal - Neck Neck: Present: supple, normal ROM - Respiratory Respiratory effort: normal Respiratory: bilateral: CTA - Cardiovascular Rhythm: regular Heart Sounds: Present: S1 & S2. Absent: gallop, systolic murmur, diastolic murmur, rub - Extremities Extremities: no ischemia, pulses intact, pulses symmetrical, No edema, Full ROM Peripheral Pulses: within normal limits - Abdominal General gastrointestinal: Present: soft, non-tender, non-distended, normal bowel sounds. Absent: mass - Integumentary Integumentary: Present: clear, warm, dry - Musculoskeletal Musculoskeletal: strength equal bilaterally - Neurologic Neurologic: CNII-XII intact, no focal deficits, moves all extremities - Constitutional Vitals: Vital Signs - 12hr 12/21/19 12/21/19 12/21/19 07:47 10:00 12:11 Temperature 97.7 F 98.5 F Pulse Rate 82 85 Pulse Rate [ 82 Apical] Respiratory 18 18 18 Rate Blood Pressure 136/54 140/62 O2 Sat by Pulse 97 98 98 Oximetry 12/21/19 12/21/19 12/21/19 12:21 12:45 15:52 Temperature 98.6 F Pulse Rate 64 85 75 Pulse Rate [ Apical] Respiratory 18 Rate Blood Pressure 140/62 145/63 O2 Sat by Pulse 100 Oximetry 12/21/19 18:02 Temperature Pulse Rate 75 Pulse Rate [ Apical] Respiratory Rate Blood Pressure 145/63 O2 Sat by Pulse Oximetry - Labs CBC & Chem 7: 12/19/19 07:02 12/21/19 06:53 Labs: Abnormal lab results 12/20/19 12/21/19 12/21/19 Range/Units 21:49 06:53 08:45 Potassium 3.4 L (3.6-5.0) mmol/L Glucose 112 H (75-100) mg/dL POC Glucose 159 H 188 H (70-105) 12/21/19 Range/Units 16:02 Potassium (3.6-5.0) mmol/L Glucose (75-100) mg/dL POC Glucose 188 H (70-105) HEART Score - HEART Score Troponin: Troponin T 0.012 ng/mL (0.00-0.029) 12/15/19 20:04
[2019-12-22] MEDS: HEPARIN 5,000 UNIT/1 ML VIAL SUB-Q SCH ×4 (05:59→22:54)
[2019-12-22] MEDS: dilTIAZem 60 MG TAB PO SCH ×3 (05:59→17:10)
[2019-12-22] MEDS: ASPIRIN 81 MG TAB CHEW PO SCH (08:59)
[2019-12-22] MEDS: POTASSIUM CHLORIDE ER 20 MEQ TAB PO SCH (08:59)
[2019-12-22] MEDS: INSULIN LISPRO 100 UNIT/ML VIAL 3 mL SUB-Q SCH ×4 (09:00→22:55)
--- NOTE | 2019-12-22 13:47 | Progress Note ---
Assessment and Plan Paroxysmal atrial flutter and atrial tachycardia has since reverted to sinus rhythm on diltiazem for suppression normal LVEF 55-605 by echo Altered mental status/DEMENTIA Sepsis/UTI Hypertension Diabetes BPH with chronic solorio HYPO-K+ ANEMIA Recommendations: Continue cardizem Due to multiple co-morbidities and elevated risk of bleeding, patient is considered not a candidate for anticoagulation. Subjective Date of service: 12/22/19 Interval history: No cardiac complaints Objective Vital Signs Temp Pulse Pulse Resp BP BP Pulse Ox 12/22/19 12:07 98.4 F 87 16 131/56 100 12/22/19 12:00 86 131/56 12/22/19 08:14 86 18 98 12/22/19 08:00 70 12/22/19 07:53 98.3 F 86 18 146/59 96 12/22/19 05:59 85 137/87 12/21/19 23:54 88 142/71 12/21/19 23:53 97.9 F 88 18 142/71 99 12/21/19 21:12 85 18 98 12/21/19 19:48 87 12/21/19 19:47 97.6 F 85 18 126/54 98 12/21/19 18:02 75 145/63 12/21/19 15:52 98.6 F 75 18 145/63 100 - Physical Examination General: No Apparent Distress HEENT: Positive: PERRL Neck: Positive: trachea midline Cardiac: Positive: Reg Rate and Rhythm Lungs: Positive: clear to auscultation Abdomen: Positive: Unremarkable Extremities: Absent: edema
--- NOTE | 2019-12-22 14:41 | Progress Note ---
Assessment and Plan --Mild hematurea likely from chronic solorio and UTI cont to monitor, resolved now will check h/h --Urinary tract infection Treated with empiric IV antibiotics. -- Urinary retention due to benign prostatic hyperplasia Patient has had Solorio catheter replaced. -- Sepsis s/p empiric IV antibiotics Consulted to infectious disease for further evaluation and recommendation. -- Diabetes type 2 We will monitor Accu-Cheks. -- WENDY (acute kidney injury) due to vasomotor nephropathy Patient placed on IV fluid and will continue to monitor BUN and creatinine. -- Cardiac arrhythmia Patient went into SVT and later into A. fib. He is s/p Cardizem drip. consulted cardiology -will follow recommendation for AC --Dementia, cont supportive care -- DVT prophylaxis Patient placed on subcutaneous heparin. -- Full code status Brief History; 69-year-old male with known history of dementia, BPH and diabetes mellitus seen in the emergency room for evaluation of confusion and dislodgment of an indwelling Solorio catheter. Work-up in the emergency room reveals a urinary tract infection with accompanying sepsis. He was started on IV fluid and empiric IV antibiotics. However during the course of his stay in the emergency room patient was said to have gone into SVT and also what appeared to be atrial fibrillation. He was initially given IV adenosine without any significant improvement in his rate and patient subsequently placed on Cardizem drip. He became hypotensive and he continued to have aggressive IV hydration. Patient admitted into the intensive care unit for close monitoring. 12/16: Patient off Cardizem drip, started on p.o. Cardizem, heart rate stable, remains confused with restrain. Transfer to telemetry. 12/17: HR stable, wait for cardiac clearance for d/c. cont iv abx for sepsis. if clinically stable plan for d/c soon 12/18: patient need SNF. cont abx. afebrile, cont to monitor. 12/19: vancomycin discontinued. last day of Cefepime today. pending SNF 12/20; patient clinically stable. Pending SNF. possible d/c on Thursday 12/21: Patient clinically stable, pending SNF. Will order for COVID-19 is a screening test prior to discharge to SNF. monitor CBC for hematuria. Subjective Date of service: 12/29/19 Interval history: Patient seen and examined discussed with RN at bedside patient denies any chest pain tolerating diet HR appears stable Noted mild hematurea today Objective - Exam Narrative Exam: General appearance: Present: no acute distress, well-nourished - EENT Eyes: Present: PERRL, EOM intact ENT: hearing intact, clear oral mucosa, dentition normal - Neck Neck: Present: supple, normal ROM - Respiratory Respiratory effort: normal Respiratory: bilateral: CTA - Cardiovascular Rhythm: regular Heart Sounds: Present: S1 & S2. Absent: gallop, systolic murmur, diastolic murmur, rub - Extremities Extremities: no ischemia, pulses intact, pulses symmetrical, No edema, Full ROM Peripheral Pulses: within normal limits - Abdominal General gastrointestinal: Present: soft, non-tender, non-distended, normal bowel sounds. Absent: mass - Integumentary Integumentary: Present: clear, warm, dry - Musculoskeletal Musculoskeletal: strength equal bilaterally - Neurologic Neurologic: CNII-XII intact, no focal deficits, moves all extremities - Constitutional Vitals: Vital Signs - 12hr 12/22/19 12/22/19 12/22/19 05:59 07:53 08:00 Temperature 98.3 F Pulse Rate 85 86 70 Pulse Rate [ Apical] Respiratory 18 Rate Blood Pressure 137/87 146/59 Blood Pressure [Left] O2 Sat by Pulse 96 Oximetry 12/22/19 12/22/19 12/22/19 08:14 12:00 12:07 Temperature 98.4 F Pulse Rate 86 87 Pulse Rate [ 86 Apical] Respiratory 18 16 Rate Blood Pressure 131/56 Blood Pressure 131/56 [Left] O2 Sat by Pulse 98 100 Oximetry - Labs CBC & Chem 7: 12/23/19 07:47 12/23/19 07:47 Labs: Abnormal lab results 12/21/19 12/21/19 12/22/19 Range/Units 16:02 20:19 08:18 POC Glucose 188 H 128 H 119 H (70-105) 12/22/19 Range/Units 12:02 POC Glucose 130 H (70-105) HEART Score - HEART Score Troponin: Troponin T 0.012 ng/mL (0.00-0.029) 12/15/19 20:04
[2019-12-23] MEDS: dilTIAZem 60 MG TAB PO SCH ×4 (00:30→17:25)
[2019-12-23] MEDS: HEPARIN 5,000 UNIT/1 ML VIAL SUB-Q SCH ×2 (05:45→13:44)
[2019-12-23 08:08] LABS: Hematocrit 33.4 % (35.5-45.6); Hemoglobin 10.7 gm/dl (11.8-15.2); Mean Corpuscular HGB Conc 32 % (32-34); Mean Corpuscular Volume 75 fl (84-94); Platelet Count 534 K/mm3 (140-440); Red Blood Count 4.43 M/mm3 (3.65-5.03); Red Cell Distribution Width 17.7 % (13.2-15.2)
[2019-12-23 08:20] LABS: Calcium 9.5 mg/dL (8.4-10.2)
--- NOTE | 2019-12-23 09:34 | Progress Note ---
<STAR PARKS - Last Filed: 12/23/19 09:31> Assessment and Plan Paroxysmal Atrial flutter and paroxysmal atrial tachycardia currently in sinus rhythm on diltiazem for suppression normal LVEF 55-60% by echo this presentation Dementia Sepsis/UTI Hypertension Diabetes BPH with chronic solorio Anemia Recommendations: Continue medical therapy with Cardizem for suppression of paroxysmal atrial flutter. Due to advanced age, frailty, multiple comorbidities including underlying anemia, he is not a candidate for chronic oral anticoagulation. We will continue low-dose aspirin as tolerated. Subjective Date of service: 12/23/19 Interval history: Patient does not speak Tunisian. He is alert and appears comfortable. Sitter is at the bedside. Stable sinus rhythm on telemetry. Objective Vital Signs Temp Pulse Resp BP BP Pulse Ox 12/23/19 07:14 86 100 12/23/19 07:13 97.6 F 88 16 134/51 99 12/23/19 03:51 98.7 F 17 146/65 12/23/19 03:49 101 H 98 12/22/19 23:27 97.7 F 89 16 134/50 99 12/22/19 22:00 98.1 F 86 16 138/51 98 12/22/19 20:20 97 12/22/19 20:00 86 12/22/19 19:57 98.2 F 16 138/51 12/22/19 17:10 85 142/60 12/22/19 16:16 97.5 F L 85 16 142/60 100 12/22/19 12:07 98.4 F 87 16 131/56 100 12/22/19 12:00 86 131/56 - Physical Examination General: No Apparent Distress HEENT: Positive: PERRL Neck: Positive: trachea midline Cardiac: Positive: Reg Rate and Rhythm Lungs: Positive: Decreased Breath Sounds Neuro: Positive: Grossly Intact Extremities: Absent: edema - Labs and Meds CBC 12/23/19 Range/Units 07:47 WBC 13.5 H (4.5-11.0) K/mm3 RBC 4.43 (3.65-5.03) M/mm3 Hgb 10.7 L (11.8-15.2) gm/dl Hct 33.4 L (35.5-45.6) % Plt Count 534 H (140-440) K/mm3 Comprehensive Metabolic Panel 12/23/19 Range/Units 07:47 Sodium 136 L (137-145) mmol/L Potassium 3.9 (3.6-5.0) mmol/L Chloride 98.8 (98-107) mmol/L Carbon Dioxide 28 (22-30) mmol/L BUN 17 (9-20) mg/dL Creatinine 1.2 (0.8-1.3) mg/dL Glucose 223 H (75-100) mg/dL Calcium 9.5 (8.4-10.2) mg/dL <RAHUL VAUGHN - Last Filed: 12/25/19 09:38> Assessment and Plan - Patient Problems (1) SVT (supraventricular tachycardia) Status: Acute (2) Hypokalemia Status: Acute (3) Urinary tract infection Status: Acute Subjective Interval history: I saw this pt & agree with the dX & tX plan
[2019-12-23] MEDS: POTASSIUM CHLORIDE ER 20 MEQ TAB PO SCH (09:44)
[2019-12-23] MEDS: INSULIN LISPRO 100 UNIT/ML VIAL 3 mL SUB-Q SCH ×3 (09:44→15:51)
[2019-12-23] MEDS: ASPIRIN 81 MG TAB CHEW PO SCH (09:44)
[2019-12-23 10:29] LABS: Band Neutrophils # (Manual) 0.7 K/mm3; Total Cells Counted 100
[2019-12-23 10:30] LABS: Basophils % (Manual) 0 % (0.0-1.8); Hypochromasia 1+; Platelet Estimate Consistent w Auto
--- NOTE | 2019-12-23 14:19 | Discharge Summary ---
Providers - Providers Date of Admission: 12/16/19 12:40 Date of discharge: 12/23/19 Attending physician: LEX VAZQUEZ 12/16/19 04:00 Consult to Physician [CONS] Urgent Comment: Consulting Provider: ROLDAN NICHOLAS Physician Instructions: Reason For Exam: svt, sepsis 12/16/19 06:18 Consult to Physician [CONS] Routine Comment: Consulting Provider: HEATHER MARTINEZ Physician Instructions: Reason For Exam: UTI,SEPSIS 12/18/19 13:40 Occupational Therapy Evaluate and Treat [CONS] Routine Comment: Reason For Exam: Debility Physical Therapy Evaluation and Treat [CONS] Routine Comment: Reason For Exam: Debility Primary care physician: MULE PACKER Hospitalization Condition: Fair Hospital course: 69-year-old male with known history of dementia, BPH and diabetes mellitus seen in the emergency room for evaluation of confusion and dislodgment of an indwelling Solorio catheter. Work-up in the emergency room reveals a urinary tract infection with accompanying sepsis. He was started on IV fluid and empiric IV antibiotics. However during the course of his stay in the emergency room patient was said to have gone into SVT and also what appeared to be atrial fibrillation. He was initially given IV adenosine without any significant improvement in his rate and patient subsequently placed on Cardizem drip. He became hypotensive and he continued to have aggressive IV hydration. Patient admitted into the intensive care unit for close monitoring. 12/16: Patient off Cardizem drip, started on p.o. Cardizem, heart rate stable, remains confused with restrain. Transfer to telemetry. 12/17: HR stable, wait for cardiac clearance for d/c. cont iv abx for sepsis. if clinically stable plan for d/c soon 12/18: patient need SNF. cont abx. afebrile, cont to monitor. 12/19: vancomycin discontinued. last day of Cefepime today. pending SNF 12/20; patient clinically stable. Pending SNF. possible d/c on Thursday 12/21: Patient clinically stable, pending SNF. Will order for COVID-19 is a screening test prior to discharge to SNF. monitor CBC for hematuria. 12/22: h/h stable. hematurea resolved. Due to advanced age, frailty, multiple comorbidities including underlying anemia, he is not a candidate for chronic oral anticoagulation. We will continue low-dose aspirin as tolerated. d/c to SNF today if covid 19 test is negative. Discharge diagnosis: --Mild hematurea likely from chronic solorio and UTI cont to monitor, resolved now will check h/h --Urinary tract infection Treated with empiric IV antibiotics. -- Urinary retention due to benign prostatic hyperplasia Patient has had Solorio catheter replaced. -- Sepsis s/p empiric IV antibiotics Consulted to infectious disease for further evaluation and recommendation. -- Diabetes type 2 We will monitor Accu-Cheks. -- WENDY (acute kidney injury) due to vasomotor nephropathy Patient placed on IV fluid and will continue to monitor BUN and creatinine. -- Cardiac arrhythmia Patient went into SVT and later into A. fib. He is s/p Cardizem drip. consulted cardiology -will follow recommendation for AC --Dementia, cont supportive care -- DVT prophylaxis Patient placed on subcutaneous heparin. -- Full code status Disposition: [id number] SNF [facility] Time spent for discharge: 34 minutes Exam - Constitutional Vitals: Temp Pulse Resp BP Pulse Ox 97.6 F 79 18 144/52 99 12/23/19 11:31 12/23/19 12:10 12/23/19 11:31 12/23/19 12:10 12/23/19 11:31 Plan Follow up with: SRUTHI MCRAE MD [Primary Care Provider] - 7 Days
[2019-12-23 15:49] VITALS: BP 136/55
== END 2019-12-23 19:13 | DRG 871 ==
LOC: ED 15:48 → CC1 23:44 → OBSVTOIN 12-16 12:40 → CC1 12-16 19:44 → 4A 12-17 20:20
PROVIDERS: ADMIT Internal Medicine Geriatric Medicine; ATTEND Internal Medicine
PROC: 0T9B70Z Drainage of Bladder with Drainage Device, Via Natural or Artificial Opening (ICD-10-PCS; principal; 2019-12-16)
DX: A41.9 Sepsis, unspecified organism (principal); N17.0 Acute kidney failure with tubular necrosis; G93.40 Encephalopathy, unspecified; N39.0 Urinary tract infection, site not specified; Z20.828 Contact with and (suspected) exposure to other viral communicable diseases; F03.90 Unspecified dementia, unspecified severity, without behavioral disturbance, psychotic disturbance, mood disturbance, and anxiety; N40.1 Benign prostatic hyperplasia with lower urinary tract symptoms; R33.8 Other retention of urine; I49.9 Cardiac arrhythmia, unspecified; N18.9 Chronic kidney disease, unspecified; E11.22 Type 2 diabetes mellitus with diabetic chronic kidney disease; I12.9 Hypertensive chronic kidney disease with stage 1 through stage 4 chronic kidney disease, or unspecified chronic kidney disease; E66.9 Obesity, unspecified; Z79.899 Other long term (current) drug therapy; Z68.20 Body mass index [BMI] 20.0-20.9, adult
CPT/HCPCS: 36415; 51702; 71046; 80048; 80053; 81001; 82140; 82962; 83735; 84132; 84484; 85007; 85025; 85610; 87040; 87086; 93005; 93306; 96365; 96366; 96367; 96375; G0378; J0153; J0692; J1630; J1644; J2060; J3370; J3475; J3480; J7030; J7040; J7050; U0003-CS

== ENCOUNTER 2020-02-07 20:22 | Inpatient (IN) | payer MEDICARE, OTHER ==
--- NOTE | 2020-02-07 20:42 | Emergency Department Report ---
ED Abdominal Pain HPI - General Chief Complaint: Abdominal Pain Stated Complaint: POSSIBLE SEPSIS/UTI PUI?: No Time Seen by Provider: 02/07/20 20:35 Source: EMS, staff interpreter Mode of arrival: Stretcher Limitations: Language Barrier - History of Present Illness Initial Comments: Patient is a 69-year-old male that presents emergency room with complaints of abdominal pain, fever, urinary retention, UTI. Patient does not speak Chinese and patient's family translated. Patient had a catheter that was discontinued on Monday. Patient is not on antibiotics for UTI. Patient has been having difficulties with urinating but has not urinated for approximately 14 hours. Patient is having lower abdominal discomfort. Patient states his fever and chills started today. Patient states his abdominal pain started today. Patient states his abdominal pain is worsening. Patient states his abdominal pain is a 5 out of 10. Patient states the abdominal pain is better with rest and worse with palpation and movement. Patient denies recent travel. Patient denies recent international travel. Patient denies exposure to the novel coronavirus. Patient denies sick contacts. Patient denies fever and chills. Patient denies cough. Patient denies diarrhea. Patient denies coming in contact with anybody with symptoms of the no yulia coronavirus. Patient brought in by EMS. Report received from EMS. Patient was found to have hypotension and tachycardia and chills. MD Complaint: abdominal pain -: Sudden Location: suprapubic Radiation: none Migration to: no migration Severity scale (0 -10): 5 Quality: fullness Consistency: constant Improves With: rest Worsens With: movement, other Context: recent surgery/procedure Associated Symptoms: dysuria. denies: nausea, vomiting, diarrhea, fever, chills, constipation, hematemesis, hematochezia, melena, hematuria, anorexia, syncope - Related Data Previous Rx's Medication Instructions Recorded Last Taken Type Tamsulosin [Flomax] 0.4 mg PO QDAY #14 cap 06/16/19 Unknown Rx Aspirin [Aspirin BABY CHEW TAB] 81 mg PO QDAY tab.chew 12/23/19 Unknown Rx Insulin Lispro [Humalog] 0 unit SUB-Q ACHS vial 12/23/19 Unknown Rx dilTIAZem [Cardizem] 60 mg PO Q6HR tablet 12/23/19 Unknown Rx Allergies Allergy/AdvReac Type Severity Reaction Status Date / Time No Known Allergies Allergy Verified 10/26/19 14:23 ED Review of Systems ROS: Stated complaint: POSSIBLE SEPSIS/UTI Other details as noted in HPI Constitutional: chills, fever, malaise, weakness Eyes: denies: eye pain, eye discharge, vision change ENT: denies: ear pain, throat pain Respiratory: denies: cough, shortness of breath, wheezing Cardiovascular: denies: chest pain, palpitations Endocrine: no symptoms reported Gastrointestinal: abdominal pain. denies: nausea, diarrhea Genitourinary: as per HPI, dysuria. denies: urgency Musculoskeletal: denies: back pain, joint swelling, arthralgia Skin: denies: rash, lesions Neurological: denies: headache, weakness, paresthesias Psychiatric: denies: anxiety, depression Hematological/Lymphatic: denies: easy bleeding, easy bruising ED Past Medical Hx - Past Medical History Previous Medical History?: Yes Hx Diabetes: Yes Hx Dementia: Yes Additional medical history: urinary retention - Surgical History Past Surgical History?: No - Family History Family history: no significant - Social History Smoking Status: Never Smoker Substance Use Type: None - Medications Home Medications: Home Medications Medication Instructions Recorded Confirmed Last Taken Type Tamsulosin [Flomax] 0.4 mg PO QDAY #14 cap 06/16/19 12/17/19 Unknown Rx Aspirin [Aspirin BABY CHEW TAB] 81 mg PO QDAY tab.chew 12/23/19 Unknown Rx Insulin Lispro [Humalog] 0 unit SUB-Q ACHS vial 12/23/19 Unknown Rx dilTIAZem [Cardizem] 60 mg PO Q6HR tablet 12/23/19 Unknown Rx ED Course Vital Signs 02/07/20 20:39 Temperature 97.9 F Pulse Rate 120 H Respiratory 18 Rate Blood Pressure 145/66 [left arm] O2 Sat by Pulse 99 Oximetry - Reevaluation(s) Reevaluation #1: After initial valuation, a code sepsis was initiated. 02/07/20 20:42 Reevaluation #2: Nielson placed. Patient states he is feeling better. 02/07/20 21:21 Reevaluation #3: Patient's vital signs are improving. Patient receiving fluids. Patient is already received antibiotics. Patient states he is feeling better. 02/07/20 22:21 Reevaluation #4: I discussed all results with patient. I discussed plan of care with patient. Patient agrees with plan of care and admission. Patient to be admitted to the hospitalist service. 02/07/20 23:21 - Consultations Consultation #1: Hospitalist consulted for admission. Hospitalist to admit patient. 02/07/20 23:21 ED Medical Decision Making - Lab Data Result diagrams: 02/07/20 20:45 02/07/20 20:45 - Radiology Data Radiology results: report reviewed, image reviewed interpreted by me: Chest x-ray: No pneumonia, no pneumothorax, no foreign body, no osseous findings, no acute findings CT ABDOMEN AND PELVIS WITH IV CONTRAST INDICATION: abd pain. COMPARISON: None available. TECHNIQUE: All CT scans at this facility use dose modulation, automated exposure control, iterative reconstruction or weight based dosing, when appropriate, to reduce radiation dose to as low as reasonably achievable. FINDINGS: Lung Bases: No significant abnormality. Skeletal System: No acute abnormality. ABDOMEN: Liver: No significant abnormality. Gallbladder: No significant abnormality. Bile Ducts: No significant abnormality. Pancreas: No significant abnormality. Spleen: No significant abnormality. Adrenals: No significant abnormality. Right Kidney: No significant abnormality. Left Kidney: No significant abnormality. Upper GI tract: Distal esophagus is mildly patulous with fluid suggesting reflux or dysmotility. Lymph Nodes: No significant adenopathy. Aorta: No significant abnormality. Additional Findings: No significant abnormality. PELVIS: Colon: No acute abnormality. Urinary Bladder and Distal Ureters: The bladder is decompressed around a Nielson catheter. There is diffuse bladder wall thickening. Appendix: No significant abnormality. Lymph Nodes: There is a 1.2 cm right perivesicle node on series 2 image 156. Shotty bilateral iliac nodes are noted. Additional Findings: Prostate is enlarged and heterogeneous. IMPRESSION: 1. No acute inflammatory process or bowel obstruction. 2. Prostate is enlarged and heterogeneous.. The bladder is decompressed around a Nielson catheter. Diffuse bladder wall thickening may be related to chronic outlet obstruction from the enlarged prostate. There are a few shotty nodes in the pelvis, as above. These are of uncertain significance. Correlation with PSA is recommended. CHEST 1 VIEW 02/07/2020 9:05 PM INDICATION / CLINICAL INFORMATION: fever. COMPARISON: 12/15/2019 FINDINGS: SUPPORT DEVICES: None. HEART / MEDIASTINUM: No significant abnormality. LUNGS / PLEURA: No significant pulmonary or pleural abnormality. No pneumothorax. ADDITIONAL FINDINGS: No significant additional findings. IMPRESSION: 1. No acute findings. - Medical Decision Making Patient is a 69-year-old male who presents emergency room with complaints of urinary retention and lower abdominal pain. Patient has a long history of Nielson requiring urinary retention. Patient recently had a Nielson removed. Patient also complained of fever and chills and weakness. Patient brought in by EMS. EMS states the patient was tachycardic and hypotensive and was given fluids. Patient's blood pressure improved by the time he arrived to the ER. Patient had a code sepsis initiated after initial evaluation. Patient had a Nielson placed immediately upon arrival. Patient's retention improved. Patient then had labs and a CT scan. Patient's labs are consistent with a UTI and lactic acidosis. Patient's lactic acid was 5. Patient given fluids and antibiotics early in the ER course. Patient CT scan was negative for acute findings but showed an enlarged prostate. Patient admitted to the hospitalist service for further evaluation and treatment. - Differential Diagnosis Sepsis, UTI, urinary retention, tachycardia, abdominal pain. Critical Care Time: Yes Critical care time in (mins) excluding proc time.: 35 Critical care attestation.: If time is entered above; I have spent that time in minutes in the direct care of this critically ill patient, excluding procedure time. Critical Care Time: 35 minutes ED Disposition Clinical Impression: Urinary retention, Lactic acid acidosis, Renal insufficiency Hypotension Qualifiers: Hypotension type: unspecified hypotension type Qualified Code(s): I95.9 - Hypotension, unspecified Abdominal pain Qualifiers: Abdominal location: lower abdomen, unspecified Qualified Code(s): R10.30 - Lower abdominal pain, unspecified Fever Qualifiers: Fever type: unspecified Qualified Code(s): R50.9 - Fever, unspecified Sepsis Qualifiers: Sepsis type: sepsis due to unspecified organism Sepsis acute organ dysfunction status: without acute organ dysfunction Qualified Code(s): A41.9 - Sepsis, unspecified organism Disposition: DC-09 OP ADMIT IP TO THIS HOSP Is pt being admited?: Yes Does the pt Need Aspirin: No Condition: Critical Time of Disposition: 23:24
[2020-02-07 21:04] LABS: Hematocrit 39.2 % (35.5-45.6); Hemoglobin 12.7 gm/dl (11.8-15.2); Mean Corpuscular HGB Conc 32 % (32-34); Mean Corpuscular Volume 75 fl (84-94); Platelet Count 462 K/mm3 (140-440); Red Blood Count 5.26 M/mm3 (3.65-5.03); Red Cell Distribution Width 14.4 % (13.2-15.2)
[2020-02-07 21:23] LABS: Albumin 3.7 g/dL (3.9-5); Calcium 9.5 mg/dL (8.4-10.2)
[2020-02-07 21:25] LABS: Bacteria,Urine 2+ /HPF (Negative); Bilirubin,Urine NEG (Negative); Blood,Urine LG (Negative); Color,Urine Yellow (Yellow); Mucus,Urine FEW /HPF; Urobilinogen,Urine < 2.0 mg/dL (<2.0)
--- NOTE | 2020-02-07 21:27 | XRay Report ---
CHEST 1 VIEW 02/07/2020 9:05 PM INDICATION / CLINICAL INFORMATION: fever. COMPARISON: 12/15/2019 FINDINGS: SUPPORT DEVICES: None. HEART / MEDIASTINUM: No significant abnormality. LUNGS / PLEURA: No significant pulmonary or pleural abnormality. No pneumothorax. ADDITIONAL FINDINGS: No significant additional findings. IMPRESSION: 1. No acute findings. Signer Name: Sidney Coulter MD Signed: 02/07/2020 9:22 PM Workstation Name: [id number]
[2020-02-07 21:29] LABS: Protein,Urine >500 mg/dL (Negative); RBC,Urine > 182.0 /HPF (0.0-6.0); WBC,Urine > 182.0 /HPF (0.0-6.0)
[2020-02-07] MEDS ORDERED: SODIUM CHLORIDE 0.9% 1000 ML IV SOLN IV ONE (21:32)
[2020-02-07] MEDS ORDERED: CEFEPIME/NS 2 GM/100 ML 2 GM/100 ML BAG IV ONE (21:33)
[2020-02-07 21:40] LABS: Basophils % (Manual) 0 % (0.0-1.8); Monocytes % (Manual) 0 % (0.0-7.3); Total Cells Counted 100
[2020-02-07 21:42] LABS: RBC Morphology Normal
--- NOTE | 2020-02-07 23:06 | Cat Scan Report ---
CT ABDOMEN AND PELVIS WITH IV CONTRAST INDICATION: abd pain. COMPARISON: None available. TECHNIQUE: All CT scans at this facility use dose modulation, automated exposure control, iterative reconstructi on or weight based dosing, when appropriate, to reduce radiation dose to as low as reasonably achieva ble. FINDINGS: Lung Bases: No significant abnormality. Skeletal System: No acute abnormality. ABDOMEN: Liver: No significant abnormality. Gallbladder: No significant abnormality. Bile Ducts: No significant abnormality. Pancreas: No significant abnormality. Spleen: No significant abnormality. Adrenals: No significant abnormality. Right Kidney: No significant abnormality. Left Kidney: No significant abnormality. Upper GI tract: Distal esophagus is mildly patulous with fluid suggesting reflux or dysmotility. Lymph Nodes: No significant adenopathy. Aorta: No significant abnormality. Additional Findings: No significant abnormality. PELVIS: Colon: No acute abnormality. Urinary Bladder and Distal Ureters: The bladder is decompressed around a Nielson catheter. There is dif fuse bladder wall thickening. Appendix: No significant abnormality. Lymph Nodes: There is a 1.2 cm right perivesicle node on series 2 image 156. Shotty bilateral iliac n odes are noted. Additional Findings: Prostate is enlarged and heterogeneous. IMPRESSION: 1. No acute inflammatory process or bowel obstruction. 2. Prostate is enlarged and heterogeneous.. The bladder is decompressed around a Nielson catheter. Dif fuse bladder wall thickening may be related to chronic outlet obstruction from the enlarged prostate. There are a few shotty nodes in the pelvis, as above. These are of uncertain significance. Correlat ion with PSA is recommended. Signer Name: Jordan Monsalve MD Signed: 02/07/2020 11:01 PM Workstation Name: [id number]
[2020-02-08] MEDS ORDERED: ACETAMINOPHEN 325 MG TAB PO PRN (00:15)
[2020-02-08] MEDS ORDERED: DEXTROSE 50% IN WATER (25GM) 50 ML SYRINGE IV PRN (00:41)
[2020-02-08] MEDS ORDERED: VANCOMYCIN PHARMACY TO DOSE IV SCH (01:00)
[2020-02-08] MEDS ORDERED: VANCOMYCIN 1,250 MG in SODIUM CHLORIDE 0.9% 250ML 250 ML IV ONE (01:00)
[2020-02-08] MEDS ORDERED: ACETAMINOPHEN 650 MG RECT SUPP PR ONE (02:49)
[2020-02-08] MEDS ORDERED: SODIUM CHLORIDE 0.9% 1000 ML 1,000 ML ONE (02:52)
[2020-02-08] MEDS ORDERED: ACETAMINOPHEN 325 MG TAB ONE (02:52)
[2020-02-08] MEDS ORDERED: POTASSIUM CHLORIDE 10 MEQ 10 MEQ/100 ML BAG IV ONE (02:52)
[2020-02-08] MEDS: POTASSIUM CHLORIDE 10 MEQ 10 MEQ/100 ML BAG IV SCH ×3 (03:01→07:06)
[2020-02-08] MEDS: SODIUM CHLORIDE 0.9% 1000 ML 1,000 ML IV SCH (03:02)
--- NOTE | 2020-02-08 04:51 | History and Physical Report ---
History of Present Illness Date of examination: 02/08/20 Date of admission: 02/08/20 00:08 Chief complaint: Abdominal pain, fever, chills History of present illness: 69 year old male with PMH of Diabetes Mellitus, Dementia and Enlarged Prostate presents with history of suprapubic area pain going on for few days and associated with fever, chills, tachycardia and low blood pressure. Patient had resent prostate surgery and had solorio catheter discontinued about 5 days ago but still complains of urinary retention. There is no history of nausea and vomiting or diarrhea. Past History Past Medical History: diabetes, other (DEMENTIA , ENLARGED PROSTATE) Past Surgical History: Other (PROSTATE SURGERY) Social history: no significant social history Family history: no significant family history Medications and Allergies Allergies Allergy/AdvReac Type Severity Reaction Status Date / Time No Known Allergies Allergy Verified 10/26/19 14:23 Home Medications Medication Instructions Recorded Confirmed Last Taken Type Tamsulosin [Flomax] 0.4 mg PO QDAY #14 cap 06/16/19 12/17/19 Unknown Rx Aspirin [Aspirin BABY CHEW TAB] 81 mg PO QDAY tab.chew 12/23/19 Unknown Rx Insulin Lispro [Humalog] 0 unit SUB-Q ACHS vial 12/23/19 Unknown Rx dilTIAZem [Cardizem] 60 mg PO Q6HR tablet 12/23/19 Unknown Rx Active Meds: Active Medications Acetaminophen (Tylenol) 650 mg PO Q4H PRN PRN Reason: Pain, Mild (1-3) Last Admin: 02/08/20 03:00 Dose: 650 mg Documented by: Dextrose (D50w (25gm) Syringe) 50 ml IV Q30MIN PRN; Protocol PRN Reason: Hypoglycemia Sodium Chloride (Nacl 0.9% 1000 Ml) 1,000 mls @ 125 mls/hr IV DIRECT CORINE Last Admin: 02/08/20 03:02 Dose: 125 mls/hr Documented by: Cefepime HCl (Cefepime/Ns 1 Gm/100 Ml) 1 gm in 100 mls @ 200 mls/hr IV Q12HR CORINE; Protocol Insulin Human Regular (Humulin R) 0 unit SUB-Q AC CORINE; Protocol Insulin Human Regular (Humulin R) 0 unit SUB-Q QHS CORINE; Protocol Review of Systems Constitutional: fever, chills, no sweats, no night sweats, no weakness Eyes: bilateral: other (NO BILATERAL EYE SYMPTOMS) Cardiovascular: no chest pain, no palpitations, no rapid/irregular heart beat, no syncope, no lightheadedness, no shortness of breath Gastrointestinal: abdominal pain, no nausea, no vomiting, no diarrhea, no constipation, no change in bowel habits, no hematemesis, no hematochezia Genitourinary Male: dysuria, hematuria, urinary hesitancy, urinary retention, no flank pain, no discharge, no urinary frequency, no nocturia, no incontinence, no erectile dysfunction, no genital pain Rectal: no pain Musculoskeletal: no neck stiffness, no neck pain Integumentary: no rash, no pruritis Neurological: no paralysis, no weakness, no parathesias, no numbness, no tingling, no seizures, no syncope, no tremors, no vertigo, no headaches Psychiatric: no anxiety, no depression Endocrine: no polyphagia, no polydipsia, no polyuria, no nocturia, no excessive sweating Hematologic/Lymphatic: no lymphedema Allergic/Immunologic: no anaphylaxis Exam - Constitutional Vitals: Temp Pulse Resp BP Pulse Ox 97.9 F 115 H 31 H 124/63 99 02/07/20 20:39 02/08/20 01:15 02/08/20 01:15 02/08/20 01:15 02/08/20 01:15 General appearance: Present: mild distress - EENT Eyes: Present: PERRL, EOM intact ENT: hearing intact, clear oral mucosa - Neck Neck: Present: supple, normal ROM - Respiratory Respiratory effort: normal - Cardiovascular Rhythm: regular Heart Sounds: Present: S1 & S2. Absent: gallop, systolic murmur, diastolic mur mur - Extremities Extremities: no ischemia, No edema Peripheral Pulses: within normal limits - Abdominal General gastrointestinal: Present: tender, non-distended. Absent: soft, non- tender, distended, rigid, hepatomegaly, splenomegaly, mass, hernia Localized gastrointestinal: tender: suprapubic Male genitourinary: Present: deferred - Rectal Rectal Exam: deferred - Integumentary Integumentary: Present: clear, warm, dry - Musculoskeletal Musculoskeletal: strength equal bilaterally - Psychiatric Psychiatric: appropriate mood/affect HEART Score - HEART Score Risk factors: 1-2 risk factors Troponin: < normal limit - Critical Actions Critical Actions: 0-3 pts:0.9-1.7%risk of adverse cardiac event.Candidate for discharge Results - Labs CBC & Chem 7: 02/07/20 20:45 02/07/20 20:45 Labs: Laboratory Last Values WBC 7.6 K/mm3 (4.5-11.0) 02/07/20 20:45 RBC 5.26 M/mm3 (3.65-5.03) H 02/07/20 20:45 Hgb 12.7 gm/dl (11.8-15.2) 02/07/20 20:45 Hct 39.2 % (35.5-45.6) 02/07/20 20:45 MCV 75 fl (84-94) L 02/07/20 20:45 MCH 24 pg (28-32) L 02/07/20 20:45 MCHC 32 % (32-34) 02/07/20 20:45 RDW 14.4 % (13.2-15.2) 02/07/20 20:45 Plt Count 462 K/mm3 (140-440) H 02/07/20 20:45 Add Manual Diff Complete 02/07/20 20:45 Total Counted 100 02/07/20 20:45 Seg Neutrophils % Product Specialist 02/07/20 20:45 Seg Neuts % (Manual) 96.0 % (40.0-70.0) H 02/07/20 20:45 Band Neutrophils % 0 % 02/07/20 20:45 Lymphocytes % (Manual) 3.0 % (13.4-35.0) L 02/07/20 20:45 Reactive Lymphs % (Man) 0 % 02/07/20 20:45 Monocytes % (Manual) 0 % (0.0-7.3) 02/07/20 20:45 Eosinophils % (Manual) 1.0 % (0.0-4.3) 02/07/20 20:45 Basophils % (Manual) 0 % (0.0-1.8) 02/07/20 20:45 Metamyelocytes % 0 % 02/07/20 20:45 Myelocytes % 0 % 02/07/20 20:45 Promyelocytes % 0 % 02/07/20 20:45 Blast Cells % 0 % 02/07/20 20:45 Nucleated RBC % Not Reportable 02/07/20 20:45 Seg Neutrophils # Man 7.3 K/mm3 (1.8-7.7) 02/07/20 20:45 Band Neutrophils # 0.0 K/mm3 02/07/20 20:45 Lymphocytes # (Manual) 0.2 K/mm3 (1.2-5.4) L 02/07/20 20:45 Abs React Lymphs (Man) 0.0 K/mm3 02/07/20 20:45 Monocytes # (Manual) 0.0 K/mm3 (0.0-0.8) 02/07/20 20:45 Eosinophils # (Manual) 0.1 K/mm3 (0.0-0.4) 02/07/20 20:45 Basophils # (Manual) 0.0 K/mm3 (0.0-0.1) 02/07/20 20:45 Metamyelocytes # 0.0 K/mm3 02/07/20 20:45 Myelocytes # 0.0 K/mm3 02/07/20 20:45 Promyelocytes # 0.0 K/mm3 02/07/20 20:45 Blast Cells # 0.0 K/mm3 02/07/20 20:45 WBC Morphology Not Reportable 02/07/20 20:45 Hypersegmented Neuts Not Reportable 02/07/20 20:45 Hyposegmented Neuts Not Reportable 02/07/20 20:45 Hypogranular Neuts Not Reportable 02/07/20 20:45 Smudge Cells Not Reportable 02/07/20 20:45 Toxic Granulation Not Reportable 02/07/20 20:45 Toxic Vacuolation Not Reportable 02/07/20 20:45 Dohle Bodies Not Reportable 02/07/20 20:45 Pelger-Huet Anomaly Not Reportable 02/07/20 20:45 Noah Rods Not Reportable 02/07/20 20:45 Platelet Estimate Appears normal 02/07/20 20:45 Clumped Platelets Not Reportable 02/07/20 20:45 Plt Clumps, EDTA Not Reportable 02/07/20 20:45 Large Platelets Not Reportable 02/07/20 20:45 Giant Platelets Not Reportable 02/07/20 20:45 Platelet Satelliting Not Reportable 02/07/20 20:45 Plt Morphology Comment Not Reportable 02/07/20 20:45 RBC Morphology Normal 02/07/20 20:45 Dimorphic RBCs Not Reportable 02/07/20 20:45 Polychromasia Not Reportable 02/07/20 20:45 Hypochromasia Not Reportable 02/07/20 20:45 Poikilocytosis Not Reportable 02/07/20 20:45 Anisocytosis Not Reportable 02/07/20 20:45 Microcytosis Not Reportable 02/07/20 20:45 Macrocytosis Not Reportable 02/07/20 20:45 Spherocytes Not Reportable 02/07/20 20:45 Pappenheimer Bodies Not Reportable 02/07/20 20:45 Sickle Cells Not Reportable 02/07/20 20:45 Target Cells Not Reportable 02/07/20 20:45 Tear Drop Cells Not Reportable 02/07/20 20:45 Ovalocytes Not Reportable 02/07/20 20:45 Helmet Cells Not Reportable 02/07/20 20:45 Muhammad-Mason Neck Bodies Not Reportable 02/07/20 20:45 [place] Rings Not Reportable 02/07/20 20:45 Austen Cells Not Reportable 02/07/20 20:45 Bite Cells Not Reportable 02/07/20 20:45 Crenated Cell Not Reportable 02/07/20 20:45 Elliptocytes Not Reportable 02/07/20 20:45 Acanthocytes (Spur) Not Reportable 02/07/20 20:45 Rouleaux Not Reportable 02/07/20 20:45 Hemoglobin C Crystals Not Reportable 02/07/20 20:45 Schistocytes Not Reportable 02/07/20 20:45 Malaria parasites Not Reportable 02/07/20 20:45 Fortino Bodies Not Reportable 02/07/20 20:45 Hem Pathologist Commnt No 02/07/20 20:45 Sodium 135 mmol/L (137-145) L 02/07/20 20:45 Potassium 3.2 mmol/L (3.6-5.0) L 02/07/20 20:45 Chloride 98.8 mmol/L (98-107) 02/07/20 20:45 Carbon Dioxide 22 mmol/L (22-30) 02/07/20 20:45 Anion Gap 17 mmol/L 02/07/20 20:45 BUN 16 mg/dL (9-20) 02/07/20 20:45 Creatinine 1.5 mg/dL (0.8-1.3) H 02/07/20 20:45 Estimated GFR 46 ml/min 02/07/20 20:45 BUN/Creatinine Ratio 11 % 02/07/20 20:45 Glucose 266 mg/dL (75-100) H 02/07/20 20:45 Lactic Acid 3.60 mmol/L (0.7-2.0) H* 02/08/20 00:35 Calcium 9.5 mg/dL (8.4-10.2) 02/07/20 20:45 Total Bilirubin 0.20 mg/dL (0.1-1.2) 02/07/20 20:45 AST 21 units/L (5-40) 02/07/20 20:45 ALT 16 units/L (7-56) 02/07/20 20:45 Alkaline Phosphatase 68 units/L (35-129) 02/07/20 20:45 Total Protein 8.2 g/dL (6.3-8.2) 02/07/20 20:45 Albumin 3.7 g/dL (3.9-5) L 02/07/20 20:45 Albumin/Globulin Ratio 0.8 % 02/07/20 20:45 Urine Color Yellow (Yellow) 02/07/20 20:36 Urine Turbidity Turbid (Clear) 02/07/20 20:36 Urine pH 5.0 (5.0-7.0) 02/07/20 20:36 Ur Specific Melfa 1.013 (1.003-1.030) 02/07/20 20:36 Urine Protein >500 mg/dL (Negative) 02/07/20 20:36 Urine Glucose (UA) >=500 mg/dL (Negative) 02/07/20 20:36 Urine Ketones Neg mg/dL (Negative) 02/07/20 20:36 Urine Blood Lg (Negative) 02/07/20 20:36 Urine Nitrite Neg (Negative) 02/07/20 20:36 Urine Bilirubin Neg (Negative) 02/07/20 20:36 Urine Urobilinogen < 2.0 mg/dL (<2.0) 02/07/20 20:36 Ur Leukocyte Esterase Lg (Negative) 02/07/20 20:36 Urine WBC (Auto) > 182.0 /HPF (0.0-6.0) H 02/07/20 20:36 Urine RBC (Auto) > 182.0 /HPF (0.0-6.0) 02/07/20 20:36 U Epithel Cells (Auto) 1.0 /HPF (0-13.0) 02/07/20 20:36 Urine Bacteria (Auto) 2+ /HPF (Negative) 02/07/20 20:36 Urine Mucus Few /HPF 02/07/20 20:36 Microbiology: Microbiology 02/07/20 20:54 Peripheral/Venous Blood Culture - Preliminary Culture in Progress 02/07/20 20:45 Peripheral/Venous Blood Culture - Preliminary Culture in Progress Solorio/IV: Voiding Method Indwelling Catheter IV Catheter Type [right ac] Peripheral IV Assessment and Plan - Patient Problems (1) Sepsis Current Visit: Yes Status: Acute Qualifiers: Sepsis type: sepsis due to unspecified organism Sepsis acute organ dysfunction status: without acute organ dysfunction Qualified Code(s): A41.9 - Sepsis, unspecified organism Plan to address problem: 1. I.V NORMAL SALINE 2. I.V CEFEPIME ANTIBIOTIC 3. I.V VANCOMYCIN ANTIBIOTIC 4. LACTIC ACID LEVELS 5. TYLENOL PO FOR FEVER (2) WENDY (acute kidney injury) Current Visit: No Status: Acute Plan to address problem: 1. I.V NORMAL SALINE ANTIBIOTIC 2. BMP LEVEL 3. NEPHROLOGY CONSULT (3) Hypokalemia Current Visit: No Status: Acute Plan to address problem: 1. I.V KCL(POTASSIUM) REPLACEMENT (4) Urinary tract infection Current Visit: No Status: Acute Plan to address problem: 1 I.V CEFIPIME ANTIBIOTIC
[2020-02-08] MEDS ORDERED: CEFEPIME/NS 1 GM/100 ML 1 GM/100 ML BAG IV SCH (06:00)
[2020-02-08] MEDS: CEFEPIME/NS 1 GM/100 ML 1 GM/100 ML BAG IV SCH ×2 (10:07→22:14)
[2020-02-08] MEDS: INSULIN REGULAR, HUMAN 100 UNIT/ML 3ML VIAL SUB-Q SCH ×3 (10:12→22:14)
--- NOTE | 2020-02-08 10:28 | Consultation ---
History of Present Illness - Reason for Consult acute renal failure - History of Present Illness Patient is a very pleasant 69-year-old male with a past medical history significant for diabetes, dementia, and likely underlying chronic kidney disease with also significant history of BPH status post prostate surgery with previous history of suprapubic catheter placement secondary to obstructive uropathy, presented to the emergency department with complaints of of abdominal pain along with concerns for urinary retention. Nephrology consulted secondary to concern for acute kidney injury. Nielson catheter in place at this time with urine output noted clear. Urinalysis is concerning for underlying urinary tract infection. Patient has been started on appropriate antibiotic therapy. Pending renal function panel this morning. Patient has also been started on IV fluid hydration. Past History Past Medical History: diabetes, other (DEMENTIA , ENLARGED PROSTATE) Past Surgical History: Other (PROSTATE SURGERY) Social history: no significant social history Family history: no significant family history Medications and Allergies Allergies Allergy/AdvReac Type Severity Reaction Status Date / Time No Known Allergies Allergy Verified 10/26/19 14:23 Home Medications Medication Instructions Recorded Confirmed Last Taken Type Tamsulosin [Flomax] 0.4 mg PO QDAY #14 cap 06/16/19 12/17/19 Unknown Rx Aspirin [Aspirin BABY CHEW TAB] 81 mg PO QDAY tab.chew 12/23/19 Unknown Rx Insulin Lispro [Humalog] 0 unit SUB-Q ACHS vial 12/23/19 Unknown Rx dilTIAZem [Cardizem] 60 mg PO Q6HR tablet 12/23/19 Unknown Rx Active Meds: Active Medications Acetaminophen (Tylenol) 650 mg PO Q4H PRN PRN Reason: Pain, Mild (1-3) Last Admin: 02/08/20 03:00 Dose: 650 mg Documented by: Dextrose (D50w (25gm) Syringe) 50 ml IV Q30MIN PRN; Protocol PRN Reason: Hypoglycemia Sodium Chloride (Nacl 0.9% 1000 Ml) 1,000 mls @ 125 mls/hr IV DIRECT CORINE Last Admin: 02/08/20 03:02 Dose: 125 mls/hr Documented by: Cefepime HCl (Cefepime/Ns 1 Gm/100 Ml) 1 gm in 100 mls @ 200 mls/hr IV Q12HR CORINE; Protocol Last Admin: 02/08/20 10:07 Dose: 200 mls/hr Documented by: Vancomycin HCl (Vancomycin/Ns 1 Gm/250 Ml) 1 gm in 250 mls @ 166.667 mls/hr IV Q24H CORINE Insulin Human Regular (Humulin R) 0 unit SUB-Q AC CORINE; Protocol Last Admin: 02/08/20 10:12 Dose: Not Given Documented by: Insulin Human Regular (Humulin R) 0 unit SUB-Q QHS CORINE; Protocol Review of Systems All systems: negative Constitutional: fatigue, weakness Exam - Vital Signs Vital signs: Vital Signs Temp Pulse Resp BP Pulse Ox 97.9 F 120 H 18 145/66 99 02/07/20 20:39 02/07/20 20:39 02/07/20 20:39 02/07/20 20:39 02/07/20 20:39 - General Appearance General appearance: well-developed, well-nourished, appears stated age EENT: ATNC Neck: Present: neck supple, trachea midline Respiratory: Clear to Ascultation, Normal Exam Heart: regular Gastrointestinal: Present: normal Integumentary: no rash Neurologic: no focal deficit Musculoskeletal: Present: deferred Psychiatric: cooperative Results - Lab Results 02/07/20 20:45 02/07/20 20:45 Most recent lab results Calcium 9.5 mg/dL (8.4-10.2) 02/07/20 20:45 Assessment and Plan - Patient Problems (1) WENDY (acute kidney injury) Current Visit: No Status: Acute Plan to address problem: Likely prerenal in the setting of urinary tract infection. Steady urine output noted from Nielson catheter placement. No acute indications of severe urinary tension at this time. We will continue to monitor closely. Continue gentle IV fluid hydration's. Avoid all nephrotoxins at this time. Maintain mean arterial map above 65 mmHg. Pending repeat renal function panel this morning. (2) Urinary tract infection Current Visit: Yes Status: Acute Qualifiers: Indwelling urinary catheter type: indwelling urethral catheter Plan to address problem: Antibiotic management per primary team. (3) Urinary retention Current Visit: Yes Status: Acute (4) Diabetes Current Visit: No Status: Chronic Plan to address problem: Diabetes mellitus per primary team. (5) Hypokalemia Current Visit: No Status: Acute Plan to address problem: Replete potassium per protocol.
[2020-02-08 11:18] LABS: Calcium 8.5 mg/dL (8.4-10.2)
[2020-02-09] MEDS: SODIUM CHLORIDE 0.9% 1000 ML 1,000 ML IV SCH ×3 (02:12→19:11)
[2020-02-09] MEDS ORDERED: VANCOMYCIN/NS 1 GM/250 ML 1 GM/250 ML BAG IV SCH (03:00)
[2020-02-09 06:31] LABS: Basophils # (Auto) 0.1 K/mm3 (0.0-0.1); Basophils % (Auto) 0.4 % (0.0-1.8); Eosinophils # (Auto) 1.1 K/mm3 (0.0-0.4); Eosinophils % (Auto) 6.3 % (0.0-4.3); Hematocrit 30.9 % (35.5-45.6); Hemoglobin 10.2 gm/dl (11.8-15.2); Lymphocytes # (Auto) 1.5 K/mm3 (1.2-5.4); Lymphocytes % (Auto) 8.8 % (13.4-35.0); Mean Corpuscular HGB Conc 33 % (32-34); Mean Corpuscular Volume 74 fl (84-94); Monocytes # (Auto) 1.2 K/mm3 (0.0-0.8); Monocytes % (Auto) 7.4 % (0.0-7.3); Platelet Count 313 K/mm3 (140-440); Red Cell Distribution Width 14.4 % (13.2-15.2)
[2020-02-09 06:48] LABS: BUN/Creatinine Ratio 12; Blood Urea Nitrogen 13 mg/dL (9-20); Calcium 8.2 mg/dL (8.4-10.2); Hemolysis Index 0
[2020-02-09] MEDS: INSULIN REGULAR, HUMAN 100 UNIT/ML 3ML VIAL SUB-Q SCH ×4 (08:50→21:50)
[2020-02-09] MEDS ORDERED: POTASSIUM CHLORIDE ER 20 MEQ TAB PO SCH (09:00)
--- NOTE | 2020-02-09 09:01 | Progress Note ---
Assessment and Plan Assessment and plan: (1) Sepsis Current Visit: Yes Status: Acute Qualifiers: Sepsis type: sepsis due to unspecified organism Sepsis acute organ dysfunction status: without acute organ dysfunction Qualified Code(s): A41.9 - Sepsis, unspecified organism Blood culture was positive for gram-negative rods, will follow identification and sensitivity Patient is on IV Vanco and cefepime ID consulted and recommend to discontinue vancomycin Lactic acidosis -Due to the above patient is on IV fluids and IV antibiotics -We will continue to monitor (2) WENDY (acute kidney injury) Current Visit: No Status: Acute Plan to address problem: -Resolved with IV fluids (3) Hypokalemia Current Visit: No Status: Acute Replete (4) Urinary tract infection Current Visit: No Status: Acute Plan to address problem: Continue antibiotics as stated above Diabetes mellitus; sliding scale insulin History of enlarged prostate with pelvic nodule -PSA elevated -Per hematology consult DVT prophylaxis; Heparin Disposition; continue inpatient care. History Interval history: Patient was seen and evaluated this morning Patient did not have any complaints No fever episode overnight Hospitalist Physical - Physical exam Narrative exam: Not in cardiopulmonary distress. The patient appeared well nourished and normally developed. Vital signs as documented. Head exam is unremarkable. No scleral icterus . Neck is without jugular venous distension, thyromegaly, or carotid bruits. Lungs are clear to auscultation. Cardiac exam reveals regular rate and Rhythm. Abdominal exam reveals normal bowel sounds, nontender, no organomegaly. Extremities are nonedematous and both femoral and pedal pulses are normal. TOP EXECUTIVE: Alert and oriented 3. No focal weakness. - Constitutional Vitals: Temp Pulse Resp BP Pulse Ox 96.5 F L 61 18 119/57 98 02/09/20 04:24 02/09/20 04:24 02/09/20 04:24 02/09/20 04:24 02/09/20 04:24 General appearance: Present: mild distress HEART Score - HEART Score Risk factors: 1-2 risk factors Troponin: < normal limit - Critical Actions Critical Actions: 0-3 pts:0.9-1.7%risk of adverse cardiac event.Candidate for discharge Results - Labs CBC & Chem 7: 02/09/20 06:02 02/09/20 06:02 Labs: Laboratory Last Values WBC 16.7 K/mm3 (4.5-11.0) H 02/09/20 06:02 RBC 4.20 M/mm3 (3.65-5.03) 02/09/20 06:02 Hgb 10.2 gm/dl (11.8-15.2) L 02/09/20 06:02 Hct 30.9 % (35.5-45.6) L D 02/09/20 06:02 MCV 74 fl (84-94) L 02/09/20 06:02 MCH 24 pg (28-32) L 02/09/20 06:02 MCHC 33 % (32-34) 02/09/20 06:02 RDW 14.4 % (13.2-15.2) 02/09/20 06:02 Plt Count 313 K/mm3 (140-440) 02/09/20 06:02 Lymph % (Auto) 8.8 % (13.4-35.0) L 02/09/20 06:02 King % (Auto) 7.4 % (0.0-7.3) H 02/09/20 06:02 Eos % (Auto) 6.3 % (0.0-4.3) H 02/09/20 06:02 Baso % (Auto) 0.4 % (0.0-1.8) 02/09/20 06:02 Lymph # (Auto) 1.5 K/mm3 (1.2-5.4) 02/09/20 06:02 King # (Auto) 1.2 K/mm3 (0.0-0.8) H 02/09/20 06:02 Eos # (Auto) 1.1 K/mm3 (0.0-0.4) H 02/09/20 06:02 Baso # (Auto) 0.1 K/mm3 (0.0-0.1) 02/09/20 06:02 Add Manual Diff Complete 02/07/20 20:45 Total Counted 100 02/07/20 20:45 Seg Neutrophils % 77.1 % (40.0-70.0) H 02/09/20 06:02 Seg Neuts % (Manual) 96.0 % (40.0-70.0) H 02/07/20 20:45 Band Neutrophils % 0 % 02/07/20 20:45 Lymphocytes % (Manual) 3.0 % (13.4-35.0) L 02/07/20 20:45 Reactive Lymphs % (Man) 0 % 02/07/20 20:45 Monocytes % (Manual) 0 % (0.0-7.3) 02/07/20 20:45 Eosinophils % (Manual) 1.0 % (0.0-4.3) 02/07/20 20:45 Basophils % (Manual) 0 % (0.0-1.8) 02/07/20 20:45 Metamyelocytes % 0 % 02/07/20 20:45 Myelocytes % 0 % 02/07/20 20:45 Promyelocytes % 0 % 02/07/20 20:45 Blast Cells % 0 % 02/07/20 20:45 Nucleated RBC % Not Reportable 02/07/20 20:45 Seg Neutrophils # 12.9 K/mm3 (1.8-7.7) H 02/09/20 06:02 Seg Neutrophils # Man 7.3 K/mm3 (1.8-7.7) 02/07/20 20:45 Band Neutrophils # 0.0 K/mm3 02/07/20 20:45 Lymphocytes # (Manual) 0.2 K/mm3 (1.2-5.4) L 02/07/20 20:45 Abs React Lymphs (Man) 0.0 K/mm3 02/07/20 20:45 Monocytes # (Manual) 0.0 K/mm3 (0.0-0.8) 02/07/20 20:45 Eosinophils # (Manual) 0.1 K/mm3 (0.0-0.4) 02/07/20 20:45 Basophils # (Manual) 0.0 K/mm3 (0.0-0.1) 02/07/20 20:45 Metamyelocytes # 0.0 K/mm3 02/07/20 20:45 Myelocytes # 0.0 K/mm3 02/07/20 20:45 Promyelocytes # 0.0 K/mm3 02/07/20 20:45 Blast Cells # 0.0 K/mm3 02/07/20 20:45 WBC Morphology Not Reportable 02/07/20 20:45 Hypersegmented Neuts Not Reportable 02/07/20 20:45 Hyposegmented Neuts Not Reportable 02/07/20 20:45 Hypogranular Neuts Not Reportable 02/07/20 20:45 Smudge Cells Not Reportable 02/07/20 20:45 Toxic Granulation Not Reportable 02/07/20 20:45 Toxic Vacuolation Not Reportable 02/07/20 20:45 Dohle Bodies Not Reportable 02/07/20 20:45 Pelger-Huet Anomaly Not Reportable 02/07/20 20:45 Noah Rods Not Reportable 02/07/20 20:45 Platelet Estimate Appears normal 02/07/20 20:45 Clumped Platelets Not Reportable 02/07/20 20:45 Plt Clumps, EDTA Not Reportable 02/07/20 20:45 Large Platelets Not Reportable 02/07/20 20:45 Giant Platelets Not Reportable 02/07/20 20:45 Platelet Satelliting Not Reportable 02/07/20 20:45 Plt Morphology Comment Not Reportable 02/07/20 20:45 RBC Morphology Normal 02/07/20 20:45 Dimorphic RBCs Not Reportable 02/07/20 20:45 Polychromasia Not Reportable 02/07/20 20:45 Hypochromasia Not Reportable 02/07/20 20:45 Poikilocytosis Not Reportable 02/07/20 20:45 Anisocytosis Not Reportable 02/07/20 20:45 Microcytosis Not Reportable 02/07/20 20:45 Macrocytosis Not Reportable 02/07/20 20:45 Spherocytes Not Reportable 02/07/20 20:45 Pappenheimer Bodies Not Reportable 02/07/20 20:45 Sickle Cells Not Reportable 02/07/20 20:45 Target Cells Not Reportable 02/07/20 20:45 Tear Drop Cells Not Reportable 02/07/20 20:45 Ovalocytes Not Reportable 02/07/20 20:45 Helmet Cells Not Reportable 02/07/20 20:45 Muhammad-Alvarado Bodies Not Reportable 02/07/20 20:45 Newborn Rings Not Reportable 02/07/20 20:45 Austen Cells Not Reportable 02/07/20 20:45 Bite Cells Not Reportable 02/07/20 20:45 Crenated Cell Not Reportable 02/07/20 20:45 Elliptocytes Not Reportable 02/07/20 20:45 Acanthocytes (Spur) Not Reportable 02/07/20 20:45 Rouleaux Not Reportable 02/07/20 20:45 Hemoglobin C Crystals Not Reportable 02/07/20 20:45 Schistocytes Not Reportable 02/07/20 20:45 Malaria parasites Not Reportable 02/07/20 20:45 Fortino Bodies Not Reportable 02/07/20 20:45 Hem Pathologist Commnt No 02/07/20 20:45 Sodium 139 mmol/L (137-145) 02/09/20 06:02 Potassium 3.3 mmol/L (3.6-5.0) L 02/09/20 06:02 Chloride 109.7 mmol/L (98-107) H 02/09/20 06:02 Carbon Dioxide 20 mmol/L (22-30) L 02/09/20 06:02 Anion Gap 13 mmol/L 02/09/20 06:02 BUN 13 mg/dL (9-20) 02/09/20 06:02 Creatinine 1.1 mg/dL (0.8-1.3) 02/09/20 06:02 Estimated GFR > 60 ml/min 02/09/20 06:02 BUN/Creatinine Ratio 12 % 02/09/20 06:02 Glucose 120 mg/dL (75-100) H 02/09/20 06:02 POC Glucose 123 mg/dL (70-105) H 02/09/20 07:45 Lactic Acid 3.20 mmol/L (0.7-2.0) H* 02/08/20 10:18 Calcium 8.2 mg/dL (8.4-10.2) L 02/09/20 06:02 Total Bilirubin 0.20 mg/dL (0.1-1.2) 02/07/20 20:45 AST 21 units/L (5-40) 02/07/20 20:45 ALT 16 units/L (7-56) 02/07/20 20:45 Alkaline Phosphatase 68 units/L (35-129) 02/07/20 20:45 Total Protein 8.2 g/dL (6.3-8.2) 02/07/20 20:45 Albumin 3.7 g/dL (3.9-5) L 02/07/20 20:45 Albumin/Globulin Ratio 0.8 % 02/07/20 20:45 Prostate Specific Ag 14.23 ng/mL (0.00-4.00) H 02/08/20 10:18 Urine Color Yellow (Yellow) 02/07/20 20:36 Urine Turbidity Turbid (Clear) 02/07/20 20:36 Urine pH 5.0 (5.0-7.0) 02/07/20 20:36 Ur Specific [place] 1.013 (1.003-1.030) 02/07/20 20:36 Urine Protein >500 mg/dL (Negative) 02/07/20 20:36 Urine Glucose (UA) >=500 mg/dL (Negative) 02/07/20 20:36 Urine Ketones Neg mg/dL (Negative) 02/07/20 20:36 Urine Blood Lg (Negative) 02/07/20 20:36 Urine Nitrite Neg (Negative) 02/07/20 20:36 Urine Bilirubin Neg (Negative) 02/07/20 20:36 Urine Urobilinogen < 2.0 mg/dL (<2.0) 02/07/20 20:36 Ur Leukocyte Esterase Lg (Negative) 02/07/20 20:36 Urine WBC (Auto) > 182.0 /HPF (0.0-6.0) H 02/07/20 20:36 Urine RBC (Auto) > 182.0 /HPF (0.0-6.0) 02/07/20 20:36 U Epithel Cells (Auto) 1.0 /HPF (0-13.0) 02/07/20 20:36 Urine Bacteria (Auto) 2+ /HPF (Negative) 02/07/20 20:36 Urine Mucus Few /HPF 02/07/20 20:36 Microbiology: Microbiology 02/07/20 20:45 Peripheral/Venous Blood Culture - Preliminary 02/07/20 20:54 Peripheral/Venous Blood Culture - Preliminary Nielson/IV: Voiding Method Indwelling Catheter IV Catheter Type [right ac] Peripheral IV IV Catheter Type [Right INT / Saline Lock Forearm] Active Medications - Current Medications Current Medications: Generic Name Dose Route Start Last Admin Trade Name Freq PRN Reason Stop Dose Admin Acetaminophen 650 mg 02/08/20 00:15 02/08/20 03:00 Tylenol PO 650 mg Q4H PRN Administration Pain, Mild (1-3) Dextrose 50 ml 02/08/20 00:41 D50w (25gm) Syringe IV Q30MIN PRN Hypoglycemia Protocol Sodium Chloride 1,000 mls @ 125 mls/hr 02/08/20 00:15 02/09/20 02:12 Nacl 0.9% 1000 Ml IV 125 mls/hr DIRECT CORINE Administration Vancomycin HCl 1 gm in 250 mls @ 166.667 mls/hr 02/09/20 03:00 02/09/20 02:11 Vancomycin/Ns 1 Gm/250 Ml IV 166.667 mls/hr Q24H CORINE Administration Cefepime HCl 1 gm in 100 mls @ 200 mls/hr 02/09/20 08:00 Cefepime/Ns 1 Gm/100 Ml IV Q8H CORINE Protocol Insulin Human Regular 0 unit 02/08/20 07:30 02/08/20 16:48 Humulin R SUB-Q Not Given AC CORINE Protocol Insulin Human Regular 0 unit 02/08/20 22:00 02/08/20 22:14 Humulin R SUB-Q Not Given QHS CORINE Protocol Potassium Chloride 40 meq 02/09/20 08:55 K-Dur PO 02/09/20 08:56 ONCE ONE
[2020-02-09] MEDS: CEFEPIME/NS 1 GM/100 ML 1 GM/100 ML BAG IV SCH ×2 (10:25→16:52)
[2020-02-09] MEDS ORDERED: POTASSIUM CHLORIDE ER 20 MEQ TAB PO ONE (12:11)
--- NOTE | 2020-02-09 12:12 | Progress Note ---
Assessment and Plan - Patient Problems (1) WENDY (acute kidney injury) Current Visit: No Status: Acute Plan to address problem: Likely prerenal in the setting of urinary tract infection. Steady urine output noted from Solorio catheter placement. No acute indications of severe urinary tension at this time. We will continue to monitor closely. Continue gentle IV fluid hydration's. Avoid all nephrotoxins at this time. Maintain mean arterial map above 65 mmHg. Renal function continues to show improvement. (2) Urinary tract infection Current Visit: Yes Status: Acute Qualifiers: Indwelling urinary catheter type: indwelling urethral catheter Plan to address problem: Antibiotic management per primary team. (3) Urinary retention Current Visit: Yes Status: Acute Plan to address problem: No evidence of retention at this time. Will monitor. Continues with indwelling solorio. (4) Diabetes Current Visit: No Status: Chronic Plan to address problem: Diabetes mellitus per primary team. (5) Hypokalemia Current Visit: No Status: Acute Plan to address problem: Replete potassium per protocol. Subjective Date of service: 02/09/20 Interval history: No acute events overnight, renal function continues to improve. Objective - Vital Signs Vital signs: Vital Signs - 12hr 02/09/20 02/09/20 02/09/20 00:16 04:00 04:24 Temperature 96.5 F L Pulse Rate 66 61 Respiratory 18 18 Rate Blood Pressure 119/57 O2 Sat by Pulse 98 98 Oximetry - General Appearance General appearance: well-developed, appears stated age EENT: ATNC Neck: no JVD, no thyromegaly Respiratory: Present: Clear to Ascultation Cardiology: regular Gastrointestinal: normal Integumentary: no rash Neurologic: no focal deficit Musculoskeletal: deferred Psychiatric: cooperative - Lab 02/09/20 06:02 02/09/20 06:02 Most recent lab results Calcium 8.2 mg/dL (8.4-10.2) L 02/09/20 06:02 - Allied health notes Allied health notes reviewed: nursing Medications & Allergies - Medications Allergies/Adverse Reactions: Allergies No Known Allergies Allergy (Verified 10/26/19 14:23) Home Medications: Home Medications Medication Instructions Recorded Confirmed Last Taken Type Tamsulosin [Flomax] 0.4 mg PO QDAY #14 cap 06/16/19 12/17/19 Unknown Rx Aspirin [Aspirin BABY CHEW TAB] 81 mg PO QDAY tab.chew 12/23/19 Unknown Rx Insulin Lispro [Humalog] 0 unit SUB-Q ACHS vial 12/23/19 Unknown Rx dilTIAZem [Cardizem] 60 mg PO Q6HR tablet 12/23/19 Unknown Rx Active Medications: Generic Name Dose Route Start Last Admin Trade Name Freq PRN Reason Stop Dose Admin Acetaminophen 650 mg 02/08/20 00:15 02/08/20 03:00 Tylenol PO 650 mg Q4H PRN Administration Pain, Mild (1-3) Dextrose 50 ml 02/08/20 00:41 D50w (25gm) Syringe IV Q30MIN PRN Hypoglycemia Protocol Heparin Sodium (Porcine) 5,000 unit 02/09/20 14:00 Heparin SUB-Q Q8HR CORINE Sodium Chloride 1,000 mls @ 125 mls/hr 02/08/20 00:15 02/09/20 10:39 Nacl 0.9% 1000 Ml IV 125 mls/hr DIRECT CORINE Administration Vancomycin HCl 1 gm in 250 mls @ 166.667 mls/hr 02/09/20 03:00 02/09/20 02:11 Vancomycin/Ns 1 Gm/250 Ml IV 166.667 mls/hr Q24H CORINE Administration Cefepime HCl 1 gm in 100 mls @ 200 mls/hr 02/09/20 08:00 Cefepime/Ns 1 Gm/100 Ml IV Q8H CORINE Protocol Insulin Human Regular 0 unit 02/08/20 07:30 02/08/20 16:48 Humulin R SUB-Q Not Given AC CORINE Protocol Insulin Human Regular 0 unit 02/08/20 22:00 02/08/20 22:14 Humulin R SUB-Q Not Given QHS CORINE Protocol
--- NOTE | 2020-02-09 12:15 | Consultation ---
History of Present Illness - Reason for Consult Consult date: 02/09/20 - History of Present Illness 69-year-old man past medical history diabetes, dementia, prostatomegaly admitted to hospital complaining of suprapubic pain which began approximately a couple days prior to admission. He notes fevers, sweats, chills. He recently had a prostate surgery and had a Nielson catheter was discontinued approximately 5 days prior, however he notes urinary retention since that time. Otherwise no symp toms. Afebrile since admission with a white count of 17. Currently receiving vancomycin and cefepime. Blood cultures with gram-negative rods awaiting finalization. Urinalysis with greater than 182 white cells. Imaging personally reviewed: Chest x-ray: No acute abnormality. CT abdomen pelvis: Enlarged prostate. Review of Systems: Bold if positive, otherwise negative General: fevers, chills, rigors HEENT: visual disturbance, diplopia, eye pain Respiratory: cough, sputum, hemoptysis, shortness of breath Cardiovascular: chest pain, syncope Gastrointestinal: nausea, vomiting, diarrhea, abdominal pain Genitourinary: dysuria, hematuria, flank pain Musculoskeletal: neck pain, back pain, joint pain, edema Neurologic: headaches, seizures Hematologic: easy bruising or bleeding Endocrine: night sweats, acute weight loss Skin: rash, jaundice, redness Psychiatric: suicidal, homicidal ideation Past History Past Medical History: diabetes, other (DEMENTIA , ENLARGED PROSTATE) Past Surgical History: Other (PROSTATE SURGERY) Social history: no significant social history Family history: no significant family history Medications and Allergies Allergies Allergy/AdvReac Type Severity Reaction Status Date / Time No Known Allergies Allergy Verified 10/26/19 14:23 Home Medications Medication Instructions Recorded Confirmed Last Taken Type Tamsulosin [Flomax] 0.4 mg PO QDAY #14 cap 06/16/19 12/17/19 Unknown Rx Aspirin [Aspirin BABY CHEW TAB] 81 mg PO QDAY tab.chew 12/23/19 Unknown Rx Insulin Lispro [Humalog] 0 unit SUB-Q ACHS vial 12/23/19 Unknown Rx dilTIAZem [Cardizem] 60 mg PO Q6HR tablet 12/23/19 Unknown Rx Active Meds: Active Medications Acetaminophen (Tylenol) 650 mg PO Q4H PRN PRN Reason: Pain, Mild (1-3) Last Admin: 02/08/20 03:00 Dose: 650 mg Documented by: Dextrose (D50w (25gm) Syringe) 50 ml IV Q30MIN PRN; Protocol PRN Reason: Hypoglycemia Heparin Sodium (Porcine) (Heparin) 5,000 unit SUB-Q Q8HR CORINE Sodium Chloride (Nacl 0.9% 1000 Ml) 1,000 mls @ 125 mls/hr IV DIRECT CORINE Last Admin: 02/09/20 10:39 Dose: 125 mls/hr Documented by: Vancomycin HCl (Vancomycin/Ns 1 Gm/250 Ml) 1 gm in 250 mls @ 166.667 mls/hr IV Q24H CORINE Last Admin: 02/09/20 02:11 Dose: 166.667 mls/hr Documented by: Cefepime HCl (Cefepime/Ns 1 Gm/100 Ml) 1 gm in 100 mls @ 200 mls/hr IV Q8H CORINE; Protocol Insulin Human Regular (Humulin R) 0 unit SUB-Q AC CORINE; Protocol Last Admin: 02/08/20 16:48 Dose: Not Given Documented by: Insulin Human Regular (Humulin R) 0 unit SUB-Q QHS CORINE; Protocol Last Admin: 02/08/20 22:14 Dose: Not Given Documented by: Potassium Chloride (K-Dur) 40 meq PO ONCE ONE Stop: 02/09/20 12:12 Physical Examination - Physical Exam Narrative exam: Physical Exam: Constitutional: Alert, cooperative. No acute distress Head, Ears, Nose: Normocephalic, atraumatic. External ears, nose normal Eyes: Conjunctivae/corneas clear. No icterus. No ptosis. Neck: Supple, no meningeal signs Oral: dentition fair, no thrush Cardiovascular: S1, S2 normal. Respiratory: Good air entry, clear to auscultation bilaterally GI: Soft, non-tender; bowel sounds normal. No peritoneal signs. Musculoskeletal: No pedal edema, no cyanosis. Skin: No rash or abscess Hem/Lymphatic: No palpable cervical or supraclavicular nodes. No lymphangitis Psych: Mood ok. Affect normal Neurological: Awake, alert, oriented. No gross abnormality - Constitutional Vitals: Vital Signs Temp Pulse Resp BP Pulse Ox 96.5 F L 61 18 119/57 98 02/09/20 04:24 02/09/20 04:24 02/09/20 04:24 02/09/20 04:24 02/09/20 04:24 Temperature -Last 24 Hours Temperature 96.5 F Temperature 98.7 F Temperature 98.2 F Results - Labs CBC & Chem 7: 02/09/20 06:02 02/09/20 06:02 Labs: Abnormal lab results 02/08/20 02/09/20 02/09/20 Range/Units 15:19 06:02 06:02 WBC 16.7 H (4.5-11.0) K/mm3 Hgb 10.2 L (11.8-15.2) gm/dl Hct 30.9 L D (35.5-45.6) % MCV 74 L (84-94) fl MCH 24 L (28-32) pg Lymph % (Auto) 8.8 L (13.4-35.0) % [place] % (Auto) 7.4 H (0.0-7.3) % Eos % (Auto) 6.3 H (0.0-4.3) % [place] # (Auto) 1.2 H (0.0-0.8) K/mm3 Eos # (Auto) 1.1 H (0.0-0.4) K/mm3 Seg Neutrophils % 77.1 H (40.0-70.0) % Seg Neutrophils # 12.9 H (1.8-7.7) K/mm3 Potassium 3.3 L (3.6-5.0) mmol/L Chloride 109.7 H (98-107) mmol/L Carbon Dioxide 20 L (22-30) mmol/L Glucose 120 H (75-100) mg/dL POC Glucose 112 H (70-105) mg/dL Calcium 8.2 L (8.4-10.2) mg/dL 02/09/20 02/09/20 Range/Units 07:45 11:06 WBC (4.5-11.0) K/mm3 Hgb (11.8-15.2) gm/dl Hct (35.5-45.6) % MCV (84-94) fl MCH (28-32) pg Lymph % (Auto) (13.4-35.0) % [place] % (Auto) (0.0-7.3) % Eos % (Auto) (0.0-4.3) % [place] # (Auto) (0.0-0.8) K/mm3 Eos # (Auto) (0.0-0.4) K/mm3 Seg Neutrophils % (40.0-70.0) % Seg Neutrophils # (1.8-7.7) K/mm3 Potassium (3.6-5.0) mmol/L Chloride (98-107) mmol/L Carbon Dioxide (22-30) mmol/L Glucose (75-100) mg/dL POC Glucose 123 H 189 H (70-105) mg/dL Calcium (8.4-10.2) mg/dL Assessment and Plan Cultures: Blood culture 02/07/2020 gram-negative rods awaiting finalization A/P: 69-year-old man past medical history dementia, diabetes, prostatomegaly admitted with sepsis secondary to gram-negative bacteremia. #Acute sepsis: Present with tachycardia and leukocytosis. Secondary to gram- negative bacteremia UTI. #Gram-negative lex bacteremia: Source is likely urinary retention, awaiting finalization of cultures. #UTI: Urinalysis with greater than 182 white cells, likely caused by urinary retention. #Urinary retention: After recent prostate instrumentation. Recs: -Continue cefepime pending finalization of blood cultures -Stop vancomycin -Hopeful to discharge on oral levofloxacin if culture sensitive. Thank you for the consult, we will continue to follow. MD [facility] ([facility] O: [phone] F: [phone]
[2020-02-09] MEDS: HEPARIN 5,000 UNIT/1 ML VIAL SUB-Q SCH ×2 (15:24→21:54)
[2020-02-10] MEDS: CEFEPIME/NS 1 GM/100 ML 1 GM/100 ML BAG IV SCH ×3 (01:00→17:58)
[2020-02-10 05:21] LABS: Basophils # (Auto) 0.1 K/mm3 (0.0-0.1); Basophils % (Auto) 0.6 % (0.0-1.8); Eosinophils # (Auto) 0.9 K/mm3 (0.0-0.4); Eosinophils % (Auto) 9.3 % (0.0-4.3); Hematocrit 31.7 % (35.5-45.6); Hemoglobin 10.7 gm/dl (11.8-15.2); Lymphocytes # (Auto) 1.6 K/mm3 (1.2-5.4); Lymphocytes % (Auto) 17.5 % (13.4-35.0); Mean Corpuscular HGB Conc 34 % (32-34); Mean Corpuscular Volume 73 fl (84-94); Monocytes # (Auto) 1.1 K/mm3 (0.0-0.8); Monocytes % (Auto) 11.9 % (0.0-7.3); Platelet Count 328 K/mm3 (140-440); Red Blood Count 4.34 M/mm3 (3.65-5.03); Red Cell Distribution Width 14.6 % (13.2-15.2)
[2020-02-10 05:36] LABS: BUN/Creatinine Ratio 9; Blood Urea Nitrogen 9 mg/dL (9-20); Calcium 8.9 mg/dL (8.4-10.2); Hemolysis Index 3
[2020-02-10] MEDS: HEPARIN 5,000 UNIT/1 ML VIAL SUB-Q SCH ×2 (06:02→17:58)
--- NOTE | 2020-02-10 07:44 | Hem/Onc Consultation ---
History of Present Illness - History of Present Illness heme/onc consult prelim data review 69yo man -[place] man, does not speak Italian & has presumed dementia with chronic BPH, solorio, microscopic hematuria eval for urinary retention and abd pain atrial fib, but not considered to be safe for anticoag IV Abx prescribed for possible infection DATA REVIEWED BELOW abd CT: prostate enlargement; no tumors Creat 1.5-1.3, PT INR 1.2 11/2019 IMPRESSION: microcytic anemia likely due to iron defic/chronic bleeding, but hemoglobinopathy is another possibility (he usually has more severe low HCT than he does now) unexplained dementia, r/o clotting tendency/hemoglobinopathy severe BPH--is he a candidate for prostatectomy? REC: labs to include Hgb electrophoresis, iron testing consider urology eval Vital Signs Temp Pulse Resp BP Pulse Ox 98.2 F 52 L 18 162/48 97 02/10/20 04:23 02/10/20 04:23 02/10/20 04:23 02/10/20 04:23 02/10/20 04:23 Temperature -Last 24 Hours Temperature 98.2 F Temperature 98.5 F Temperature 98.0 F Temperature 98.1 F Active Medications Acetaminophen (Tylenol) 650 mg PO Q4H PRN PRN Reason: Pain, Mild (1-3) Last Admin: 02/08/20 03:00 Dose: 650 mg Documented by: Dextrose (D50w (25gm) Syringe) 50 ml IV Q30MIN PRN; Protocol PRN Reason: Hypoglycemia Heparin Sodium (Porcine) (Heparin) 5,000 unit SUB-Q Q8HR CORINE Last Admin: 02/10/20 06:02 Dose: 5,000 unit Documented by: Sodium Chloride (Nacl 0.9% 1000 Ml) 1,000 mls @ 125 mls/hr IV DIRECT CORINE Last Admin: 02/09/20 19:11 Dose: 125 mls/hr Documented by: Cefepime HCl (Cefepime/Ns 1 Gm/100 Ml) 1 gm in 100 mls @ 200 mls/hr IV Q8H CORINE; Protocol Last Admin: 02/10/20 01:00 Dose: 200 mls/hr Documented by: Insulin Human Regular (Humulin R) 0 unit SUB-Q AC CORINE; Protocol Last Admin: 02/09/20 16:52 Dose: Not Given Documented by: Insulin Human Regular (Humulin R) 0 unit SUB-Q QHS CORINE; Protocol Last Admin: 02/09/20 21:50 Dose: Not Given Documented by: Laboratory Last Values WBC 9.4 K/mm3 (4.5-11.0) 02/10/20 04:50 Hgb 10.7 gm/dl (11.8-15.2) L 02/10/20 04:50 Hct 31.7 % (35.5-45.6) L 02/10/20 04:50 MCV 73 fl (84-94) L 02/10/20 04:50 Plt Count 328 K/mm3 (140-440) 02/10/20 04:50 Creatinine 1.0 mg/dL (0.8-1.3) 02/10/20 04:50 Prostate Specific Ag 14.23 ng/mL (0.00-4.00) H 02/08/20 10:18 Urine Mucus Few /HPF 02/07/20 20:36 Past History Past Medical History: diabetes, other (DEMENTIA , ENLARGED PROSTATE) Past Surgical History: Other (PROSTATE SURGERY) Social history: no significant social history Family history: no significant family history Medications and Allergies Allergies Allergy/AdvReac Type Severity Reaction Status Date / Time No Known Allergies Allergy Verified 10/26/19 14:23 Home Medications Medication Instructions Recorded Confirmed Last Taken Type Tamsulosin [Flomax] 0.4 mg PO QDAY #14 cap 06/16/19 12/17/19 Unknown Rx Aspirin [Aspirin BABY CHEW TAB] 81 mg PO QDAY tab.chew 12/23/19 Unknown Rx Insulin Lispro [Humalog] 0 unit SUB-Q ACHS vial 12/23/19 Unknown Rx dilTIAZem [Cardizem] 60 mg PO Q6HR tablet 12/23/19 Unknown Rx Active Meds: Active Medications Acetaminophen (Tylenol) 650 mg PO Q4H PRN PRN Reason: Pain, Mild (1-3) Last Admin: 02/08/20 03:00 Dose: 650 mg Documented by: Dextrose (D50w (25gm) Syringe) 50 ml IV Q30MIN PRN; Protocol PRN Reason: Hypoglycemia Heparin Sodium (Porcine) (Heparin) 5,000 unit SUB-Q Q8HR [facility] Last Admin: 02/10/20 06:02 Dose: 5,000 unit Documented by: Sodium Chloride (Nacl 0.9% 1000 Ml) 1,000 mls @ 125 mls/hr IV DIRECT CORINE Last Admin: 02/09/20 19:11 Dose: 125 mls/hr Documented by: Cefepime HCl (Cefepime/Ns 1 Gm/100 Ml) 1 gm in 100 mls @ 200 mls/hr IV Q8H CORINE; Protocol Last Admin: 02/10/20 01:00 Dose: 200 mls/hr Documented by: Insulin Human Regular (Humulin R) 0 unit SUB-Q AC CORINE; Protocol Last Admin: 02/09/20 16:52 Dose: Not Given Documented by: Insulin Human Regular (Humulin R) 0 unit SUB-Q QHS CORINE; Protocol Last Admin: 02/09/20 21:50 Dose: Not Given Documented by: Exam - Constitutional Vitals: Last Vital Signs Temp 98.2 F 02/10/20 04:23 Pulse 52 L 02/10/20 04:23 Resp 18 02/10/20 04:23 BP 162/48 02/10/20 04:23 Pulse Ox 97 02/10/20 04:23 Results - Labs lab Results: Laboratory Results - last 24 hr 02/09/20 02/09/20 02/09/20 07:45 09:17 11:06 WBC RBC Hgb Hct MCV MCH MCHC RDW Plt Count Lymph % (Auto) [place] % (Auto) Eos % (Auto) Baso % (Auto) Lymph # (Auto) [place] # (Auto) Eos # (Auto) Baso # (Auto) Seg Neutrophils % Seg Neutrophils # Sodium Potassium Chloride Carbon Dioxide Anion Gap BUN Creatinine Estimated GFR BUN/Creatinine Ratio Glucose POC Glucose 123 H 189 H Lactic Acid 1.70 Calcium 02/09/20 02/09/20 02/10/20 15:23 21:50 04:50 WBC 9.4 RBC 4.34 Hgb 10.7 L Hct 31.7 L MCV 73 L MCH 25 L MCHC 34 RDW 14.6 Plt Count 328 Lymph % (Auto) 17.5 [place] % (Auto) 11.9 H Eos % (Auto) 9.3 H Baso % (Auto) 0.6 Lymph # (Auto) 1.6 [place] # (Auto) 1.1 H Eos # (Auto) 0.9 H Baso # (Auto) 0.1 Seg Neutrophils % 60.7 Seg Neutrophils # 5.7 Sodium Potassium Chloride Carbon Dioxide Anion Gap BUN Creatinine Estimated GFR BUN/Creatinine Ratio Glucose POC Glucose 154 H 124 H Lactic Acid Calcium 02/10/20 04:50 WBC RBC Hgb Hct MCV MCH MCHC RDW Plt Count Lymph % (Auto) [place] % (Auto) Eos % (Auto) Baso % (Auto) Lymph # (Auto) [place] # (Auto) Eos # (Auto) Baso # (Auto) Seg Neutrophils % Seg Neutrophils # Sodium 142 Potassium 3.1 L Chloride 110.2 H Carbon Dioxide 21 L Anion Gap 14 BUN 9 Creatinine 1.0 Estimated GFR > 60 BUN/Creatinine Ratio 9 Glucose 154 H POC Glucose Lactic Acid Calcium 8.9
--- NOTE | 2020-02-10 08:14 | Progress Note ---
Assessment and Plan - Patient Problems (1) WENDY (acute kidney injury) Current Visit: No Status: Acute Plan to address problem: Likely prerenal in the setting of urinary tract infection. Steady urine output noted from Solorio catheter placement. No acute indications of severe urinary tension at this time. We will continue to monitor closely. Continue gentle IV fluid hydration's. Avoid all nephrotoxins at this time. Maintain mean arterial map above 65 mmHg. Renal function continues to show improvement. (2) Urinary tract infection Current Visit: Yes Status: Acute Qualifiers: Indwelling urinary catheter type: indwelling urethral catheter Plan to address problem: Antibiotic management per primary team. (3) Urinary retention Current Visit: Yes Status: Acute Plan to address problem: Continues with indwelling solorio. (4) Diabetes Current Visit: No Status: Chronic Plan to address problem: Diabetes mellitus per primary team. (5) Hypokalemia Current Visit: No Status: Acute Plan to address problem: Replete potassium per protocol. Subjective Date of service: 02/10/20 Interval history: No acute changes from renal standpoint. Objective - Vital Signs Vital signs: Vital Signs - 12hr 02/09/20 02/10/20 02/10/20 20:56 00:06 04:23 Temperature 98.5 F 98.2 F Pulse Rate 57 L 51 L 52 L Respiratory 18 18 Rate Blood Pressure 130/43 Blood Pressure 162/48 [left arm] O2 Sat by Pulse 97 97 Oximetry - General Appearance General appearance: well-developed, appears stated age EENT: ATNC Neck: no JVD Respiratory: Present: Clear to Ascultation Cardiology: regular Gastrointestinal: normal Integumentary: no rash Neurologic: no focal deficit Musculoskeletal: deferred - Lab 02/10/20 04:50 02/10/20 04:50 Most recent lab results Calcium 8.9 mg/dL (8.4-10.2) 02/10/20 04:50 Medications & Allergies - Medications Allergies/Adverse Reactions: Allergies No Known Allergies Allergy (Verified 10/26/19 14:23) Home Medications: Home Medications Medication Instructions Recorded Confirmed Last Taken Type Tamsulosin [Flomax] 0.4 mg PO QDAY #14 cap 06/16/19 12/17/19 Unknown Rx Aspirin [Aspirin BABY CHEW TAB] 81 mg PO QDAY tab.chew 12/23/19 Unknown Rx Insulin Lispro [Humalog] 0 unit SUB-Q ACHS vial 10/05/20 Unknown Rx dilTIAZem [Cardizem] 60 mg PO Q6HR tablet 12/23/19 Unknown Rx Active Medications: Generic Name Dose Route Start Last Admin Trade Name Freq PRN Reason Stop Dose Admin Acetaminophen 650 mg 02/08/20 00:15 02/08/20 03:00 Tylenol PO 650 mg Q4H PRN Administration Pain, Mild (1-3) Dextrose 50 ml 02/08/20 00:41 D50w (25gm) Syringe IV Q30MIN PRN Hypoglycemia Protocol Heparin Sodium (Porcine) 5,000 unit 02/09/20 14:00 02/10/20 06:02 Heparin SUB-Q 5,000 unit Q8HR CORINE Administration Sodium Chloride 1,000 mls @ 125 mls/hr 02/08/20 00:15 02/09/20 19:11 Nacl 0.9% 1000 Ml IV 125 mls/hr DIRECT CORINE Administration Cefepime HCl 1 gm in 100 mls @ 200 mls/hr 02/09/20 08:00 02/10/20 01:00 Cefepime/Ns 1 Gm/100 Ml IV 200 mls/hr Q8H CORINE Administration Protocol Insulin Human Regular 0 unit 02/08/20 07:30 02/09/20 16:52 Humulin R SUB-Q Not Given AC CORINE Protocol Insulin Human Regular 0 unit 02/08/20 22:00 02/09/20 21:50 Humulin R SUB-Q Not Given QHS CORINE Protocol
[2020-02-10] MEDS: INSULIN REGULAR, HUMAN 100 UNIT/ML 3ML VIAL SUB-Q SCH ×3 (08:30→17:58)
--- NOTE | 2020-02-10 09:34 | Discharge Summary ---
Providers - Providers Date of Admission: 02/08/20 00:08 Attending physician: PATY LEONG MD 02/08/20 05:14 Consult to Physician [CONS] Routine Comment: Consulting Provider: LUIS RUIZ Physician Instructions: Reason For Exam: ACUTE KIDNEY INJURY 02/08/20 08:33 Consult to Physician [CONS] Routine Comment: Consulting Provider: GLORIA LONG Physician Instructions: Reason For Exam: enlarged prostate, nodules in the prostate 02/09/20 08:54 Consult to Physician [CONS] Routine Comment: Consulting Provider: YAMEL ZENDEJAS Physician Instructions: Reason For Exam: sepsis, bactremia [facility] Condition: Stable Hospital course: 69 year old male with PMH of Diabetes Mellitus, Dementia and Enlarged Prostate presents with history of suprapubic area pain going on for few days and associated with fever, chills, tachycardia and low blood pressure. Patient had resent prostate surgery and had solorio catheter discontinued about 5 days ago but still complains of urinary retention. There is no history of nausea and vomiting or diarrhea. Clinically improved. Blood culture 1 out of 2 bottles positive for gram- negative rods awaiting sensitivity. Discussed with daughter Ms. Maria De Jesus navarro we unfortunately patient has underlying dementia is very forgetful dementia comes in and out at his baseline now. Discussed with nursing staff patient is ambulating although needs assistance. But also informs me that the patient does have home health already at home we will touch base with case management to arrange for resumption of home health services. I have discussed with the daughter to make sure that the patient follows up with urology as the patient will be coming home with a Solorio catheter (1) Sepsis Current Visit: Yes Status: Acute Qualifiers: Sepsis type: sepsis due to unspecified organism Sepsis acute organ dysfunction status: without acute organ dysfunction Qualified Code(s): A41.9 - Sepsis, unspecified organism Blood culture was positive for gram-negative rods, will follow identification and sensitivity Patient is on IV Vanco and cefepime ID consulted and recommend to discontinue vancomycin Lactic acidosis -Due to the above patient is on IV fluids and IV antibiotics -We will continue to monitor (2) WENDY (acute kidney injury) secondary to ATN Current Visit: No Status: Acute Plan to address problem: -Resolved with IV fluids (3) Hypokalemia Current Visit: No Status: Acute Replete (4) acute cystitis with bacteremia Current Visit: No Status: Acute Plan to address problem: Continue antibiotics as stated above Diabetes mellitus; sliding scale insulin History of enlarged prostate with pelvic nodule -PSA elevated -Per hematology consult DVT prophylaxis; Heparin Disposition; continue inpatient care. 69yo man -Citizen Of [place] man, does not speak Welsh & has presumed dementia with chronic BPH, solorio, microscopic hematuria eval for urinary retention and abd pain atrial fib, but not considered to be safe for anticoag IV Abx prescribed for possible infection DATA REVIEWED BELOW abd CT: prostate enlargement; no tumors Creat 1.5-1.3, PT INR 1.2 11/2019 IMPRESSION: microcytic anemia likely due to iron defic/chronic bleeding, but hemoglobinopathy is another possibility (he usually has more severe low HCT than he does now) unexplained dementia, r/o clotting tendency/hemoglobinopathy severe BPH--is he a candidate for prostatectomy? REC: labs to include Hgb electrophoresis, iron testing consider urology eval Disposition: DC-01 TO HOME OR SELFCARE Time spent for discharge: 35 mins Core Measure Documentation - Palliative Care Palliative Care/ Comfort Measures: Not Applicable Exam - Constitutional Vitals: Temp Pulse Resp BP Pulse Ox 98.2 F 52 L 18 162/48 97 02/10/20 04:23 02/10/20 04:23 02/10/20 04:23 02/10/20 04:23 02/10/20 04:23 Plan Activity: advance as tolerated, fall precautions Diet: low fat Special Instructions: record daily weights, record daily BP diary Follow up with: GINO MCMAHON MD [Primary Care Provider] - 7 Days Prescriptions: levoFLOXacin [Levaquin] 750 mg PO QDAY #10 tablet
[2020-02-10] MEDS ORDERED: POTASSIUM CHLORIDE ER 20 MEQ TAB PO SCH (10:00)
[2020-02-10 10:08] LABS: Iron 72 ug/dL (49-181); Total Iron Binding Capacity 243 mcg/dL (250-450)
[2020-02-10 12:16] VITALS: BP 142/57
--- NOTE | 2020-02-10 17:58 | Progress Note ---
Assessment and Plan Cultures: Blood culture 02/07/2020 Enterobacter cloacae A/P: 69-year-old man past medical history dementia, diabetes, prostatomegaly admitted with sepsis secondary to gram-negative bacteremia. #Acute sepsis: Present with tachycardia and leukocytosis. Secondary to gram- negative bacteremia UTI. #Enterobacter cloacae bacteremia: Source is likely urinary retention #UTI: Urinalysis with greater than 182 white cells, likely caused by urinary retention. #Urinary retention: After recent prostate instrumentation. Recs: -Continue cefepime pending finalization of blood cultures -Okay to discharge on levofloxacin 750 mg every 24 hours to complete 2 weeks of antibiotics. Stop date of antibiotics 02/22/2020 -Hopeful to discharge on oral levofloxacin if culture sensitive. Thank you for the consult, we will continue to follow. Rudy Mcleod MD [facility] ([facility]) O: [phone] F: [phone] Subjective Date of service: 02/10/20 Interval history: Afebrile, normal white count. Blood cultures with Enterobacter cloacae Objective - Exam Narrative Exam: Physical Exam: Constitutional: Alert, cooperative. No acute distress Head, Ears, Nose: Normocephalic, atraumatic. External ears, nose normal Eyes: Conjunctivae/corneas clear. No icterus. No ptosis. Neck: Supple, no meningeal signs Oral: dentition fair, no thrush Cardiovascular: S1, S2 normal. Respiratory: Good air entry, clear to auscultation bilaterally GI: Soft, non-tender; bowel sounds normal. No peritoneal signs. Musculoskeletal: No pedal edema, no cyanosis. Skin: No rash or abscess Hem/Lymphatic: No palpable cervical or supraclavicular nodes. No lymphangitis Psych: Mood ok. Affect normal Neurological: Awake, alert, oriented. No gross abnormality - Constitutional Vitals: Vital Signs Temp Pulse Resp BP Pulse Ox 98 F 55 L 18 142/57 96 02/10/20 12:15 02/10/20 16:30 02/10/20 08:29 02/10/20 08:29 02/10/20 08:29 Temperature -Last 24 Hours Temperature 98 F Temperature 98.2 F Temperature 98.5 F Temperature 98.0 F - Labs CBC & Chem 7: 02/10/20 04:50 02/10/20 04:50 Labs: Abnormal lab results 02/07/20 02/09/20 02/10/20 Range/Units 20:45 21:50 04:50 RBC 5.26 H (3.65-5.03) M/mm3 Hgb 10.7 L (11.8-15.2) gm/dl Hct 31.7 L (35.5-45.6) % MCV 75 L 73 L (84-94) fl MCH 24 L 25 L (28-32) pg Plt Count 462 H (140-440) K/mm3 [place] % (Auto) 11.9 H (0.0-7.3) % Eos % (Auto) 9.3 H (0.0-4.3) % [place] # (Auto) 1.1 H (0.0-0.8) K/mm3 Eos # (Auto) 0.9 H (0.0-0.4) K/mm3 Seg Neuts % (Manual) 96.0 H (40.0-70.0) % Lymphocytes % (Manual) 3.0 L (13.4-35.0) % Lymphocytes # (Manual) 0.2 L (1.2-5.4) K/mm3 Potassium (3.6-5.0) mmol/L Chloride (98-107) mmol/L Carbon Dioxide (22-30) mmol/L Glucose (75-100) mg/dL POC Glucose 124 H (70-105) mg/dL TIBC (250-450) mcg/dL 02/10/20 02/10/20 02/10/20 Range/Units 04:50 08:48 11:50 RBC (3.65-5.03) M/mm3 Hgb (11.8-15.2) gm/dl Hct (35.5-45.6) % MCV (84-94) fl MCH (28-32) pg Plt Count (140-440) K/mm3 [place] % (Auto) (0.0-7.3) % Eos % (Auto) (0.0-4.3) % [place] # (Auto) (0.0-0.8) K/mm3 Eos # (Auto) (0.0-0.4) K/mm3 Seg Neuts % (Manual) (40.0-70.0) % Lymphocytes % (Manual) (13.4-35.0) % Lymphocytes # (Manual) (1.2-5.4) K/mm3 Potassium 3.1 L (3.6-5.0) mmol/L Chloride 110.2 H (98-107) mmol/L Carbon Dioxide 21 L (22-30) mmol/L Glucose 154 H (75-100) mg/dL POC Glucose 139 H (70-105) mg/dL TIBC 243 L (250-450) mcg/dL 02/10/20 Range/Units 16:45 RBC (3.65-5.03) M/mm3 Hgb (11.8-15.2) gm/dl Hct (35.5-45.6) % MCV (84-94) fl MCH (28-32) pg Plt Count (140-440) K/mm3 [place] % (Auto) (0.0-7.3) % Eos % (Auto) (0.0-4.3) % [place] # (Auto) (0.0-0.8) K/mm3 Eos # (Auto) (0.0-0.4) K/mm3 Seg Neuts % (Manual) (40.0-70.0) % Lymphocytes % (Manual) (13.4-35.0) % Lymphocytes # (Manual) (1.2-5.4) K/mm3 Potassium (3.6-5.0) mmol/L Chloride (98-107) mmol/L Carbon Dioxide (22-30) mmol/L Glucose (75-100) mg/dL POC Glucose 159 H (70-105) mg/dL TIBC (250-450) mcg/dL
== END 2020-02-10 20:10 | disposition home or self-care (01) | DRG 871 ==
LOC: ED 20:22 → 4A 23:25 → OBSVTOIN 02-08 00:08 → 4A 02-10 00:20
PROVIDERS: ADMIT Internal Medicine; ATTEND Internal Medicine
DX: A41.59 Other Gram-negative sepsis (principal); N17.0 Acute kidney failure with tubular necrosis; N30.00 Acute cystitis without hematuria; F03.90 Unspecified dementia, unspecified severity, without behavioral disturbance, psychotic disturbance, mood disturbance, and anxiety; E87.6 Hypokalemia; R33.8 Other retention of urine; E11.9 Type 2 diabetes mellitus without complications; N40.1 Benign prostatic hyperplasia with lower urinary tract symptoms; I48.91 Unspecified atrial fibrillation; Z79.82 Long term (current) use of aspirin; Z79.899 Other long term (current) drug therapy; Z79.4 Long term (current) use of insulin
CPT/HCPCS: 36415; 71045; 74177; 80048; 80053; 81001; 82140; 82962; 83550; 84153; 85007; 85025; 87040; 87076; 87186; 96374; 96375; G0378; J0692; J1644; J1815; J3370; J3480; J7030; J7050; Q9967